=== PATIENT | female | born 2000 | race Caucasian/White ===

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

== ENCOUNTER 2021-03-24 16:52 | Outpatient (CLI) | payer MEDICAID | END 2021-03-24 16:53 | disposition critical access hospital (66) | LOC: EMS 16:52 | DX: R45.851 Suicidal ideations (principal) | CPT/HCPCS: A0425; A0429; A0999 ==

== ENCOUNTER 2021-03-24 17:27 | Emergency (ER) | payer MEDICAID ==
--- NOTE | 2021-03-24 17:33 | ED Physician Documentation ---
PD HPI MHE - Stated complaint Stated Complaint: SI - History obtained from History obtained from: Patient, EMS - History of Present Illness Primary symptom: Suicidal ideation - Additional information Additional information: 20-year-old presents by ambulance with suicidal ideation. States that she is severely suicidal but has no plan. Would like to be hospitalized. Has been self cutting. Comorbidities include diabetes. She is currently homeless. Review of Systems Ten Systems: 10 systems reviewed and negative Constitutional: reports: Reviewed and negative Cardiac: reports: Reviewed and negative PD PAST MEDICAL HISTORY - Past Medical History Cardiovascular: None Respiratory: None Neuro: None Endocrine/Autoimmune: Type 2 diabetes GI: None FLORAL ASSOCIATE: None : None HEENT: None Psych: Depression Musculoskeletal: None Derm: None - Past Surgical History Past Surgical History: No - Present Medications Home Medications: Ambulatory Orders Medication Instructions Recorded Confirmed Atorvastatin [Lipitor] 1 tab QPM 03/25/21 03/25/21 Insulin Glargine [Lantus Solostar] 20 unit QPM 03/25/21 03/25/21 Quetiapine Fumarate [Seroquel Xr] 25 mg QPM 03/25/21 03/25/21 - Allergies Allergies/Adverse Reactions: Allergies Allergy/AdvReac Type Severity Reaction Status Date / Time No Known Drug Allergies Allergy Verified 03/24/21 17:35 - Social History Does the pt smoke?: No Smoking Status: Never smoker Does the pt drink ETOH?: No Does the pt have substance abuse?: No - Immunizations Immunizations are current?: Yes Immunizations: TDAP >10years/unknown - POLST Patient has POLST: No PD ED PE NORMAL - Vitals Vital signs reviewed: Yes - General General: Alert and oriented X 3, No acute distress - HEENT HEENT: PERRL, EOMI - Neck Neck: Supple, no meningeal sign, No bony TTP - Cardiac Cardiac: RRR, No murmur - Respiratory Respiratory: No respiratory distress, Clear bilaterally - Abdomen Abdomen: Soft, Non tender - Back Back: No CVA TTP, No spinal TTP - Derm Derm: Normal color, Warm and dry - Extremities Extremities: No edema, No calf tenderness / cord - Neuro Neuro: Alert and oriented X 3, Normal speech - Psych Psych: Other (Depressed mood but cooperative with good eye contact) Results - Vitals Vitals: Vital Signs - 24 hr 03/25/21 03/25/21 03/25/21 00:14 03:51 05:21 Heart Rate 103 H Respiratory 18 13 15 Rate Blood Pressure 142/80 H O2 Saturation 94 03/25/21 03/25/21 06:18 14:56 Heart Rate 107 H Respiratory 12 17 Rate Blood Pressure 158/87 H O2 Saturation 98 Oxygen O2 Source Room air - Labs Labs: Laboratory Tests 03/24/21 03/24/21 03/24/21 17:44 17:44 17:44 WBC 10.3 RBC 5.14 Hgb 14.1 Hct 42.9 MCV 83.5 MCH 27.4 MCHC 32.9 RDW 12.8 Plt Count 317 MPV 11.1 H Neut # (Auto) 7.4 H Lymph # (Auto) 2.2 [place] # (Auto) 0.6 Eos # (Auto) 0.1 Baso # (Auto) 0.0 Absolute Nucleated RBC 0.00 Nucleated RBC % 0.0 Sodium 133 L Potassium 3.9 Chloride 97 L Carbon Dioxide 26 Anion Gap 10.0 BUN 12 Creatinine 0.5 Estimated GFR (MDRD) 159 Glucose 253 H Calcium 9.4 Total Bilirubin 0.5 AST 86 H ALT 108 H Alkaline Phosphatase 67 Total Protein 8.9 H Albumin 4.3 Globulin 4.6 H Albumin/Globulin Ratio 0.9 L Lipase 28 TSH 1.60 Urine Color Urine Clarity Urine pH Ur Specific Mozelle Urine Protein Urine Glucose (UA) Urine Ketones Urine Occult Blood Urine Nitrite Urine Bilirubin Urine Urobilinogen Ur Leukocyte Esterase Urine RBC Urine WBC Ur Squamous Epith Cells Urine Bacteria Ur Microscopic Review Urine Culture Comments Urine HCG, Qual Nasal Adenovirus (PCR) Nasal B. parapertussis DNA (PCR) Nasal Coronavir 229E PCR Nasal Coronavir HKU1 PCR Nasal Coronavir NL63 PCR Nasal Coronavir OC43 PCR Nasal Enterovir/Rhinovir PCR Nasal Influenza B PCR Nasal Influenza A PCR Nasal Parainfluen 1 PCR Nasal Parainfluen 2 PCR Nasal Parainfluen 3 PCR Nasal Parainfluen 4 PCR Nasal RSV (PCR) Nasal B.pertussis DNA PCR Nasal C.pneumoniae (PCR) Rashawn Human Metapneumo PCR Nasal M.pneumoniae (PCR) Nasal SARS-CoV-2 (PCR) Salicylates < 6.0 Urine Opiates Screen Ur Oxycodone Screen Urine Methadone Screen Ur Propoxyphene Screen Acetaminophen < 10 L Ur Barbiturates Screen Ur Tricyclics Screen Ur Phencyclidine Scrn Ur Amphetamine Screen U Methamphetamines Scrn U Benzodiazepines Scrn Urine Cocaine Screen U Cannabinoids Screen Ethyl Alcohol < 5.0 03/24/21 03/24/21 17:47 22:45 WBC RBC Hgb Hct MCV MCH MCHC RDW Plt Count MPV Neut # (Auto) Lymph # (Auto) [place] # (Auto) Eos # (Auto) Baso # (Auto) Absolute Nucleated RBC Nucleated RBC % Sodium Potassium Chloride Carbon Dioxide Anion Gap BUN Creatinine Estimated GFR (MDRD) Glucose Calcium Total Bilirubin AST ALT Alkaline Phosphatase Total Protein Albumin Globulin Albumin/Globulin Ratio Lipase TSH Urine Color YELLOW Urine Clarity SL. CLOUDY Urine pH 5.5 Ur Specific Mozelle 1.020 Urine Protein NEGATIVE Urine Glucose (UA) >=1000 H Urine Ketones NEGATIVE Urine Occult Blood TRACE-INTA Urine Nitrite NEGATIVE Urine Bilirubin NEGATIVE Urine Urobilinogen 0.2 (NORMAL) Ur Leukocyte Esterase SMALL H Urine RBC 6-10 H Urine WBC 0-3 Ur Squamous Epith Cells MANY Squamous H Urine Bacteria Many H Ur Microscopic Review INDICATED Urine Culture Comments NOT INDICATED Urine HCG, Qual NEGATIVE Nasal Adenovirus (PCR) NOT DETECTED Nasal B. parapertussis DNA (PCR) NOT DETECTED Nasal Coronavir 229E PCR NOT DETECTED Nasal Coronavir HKU1 PCR NOT DETECTED Nasal Coronavir NL63 PCR NOT DETECTED Nasal Coronavir OC43 PCR NOT DETECTED Nasal Enterovir/Rhinovir PCR NOT DETECTED Nasal Influenza B PCR NOT DETECTED Nasal Influenza A PCR NOT DETECTED Nasal Parainfluen 1 PCR NOT DETECTED Nasal Parainfluen 2 PCR NOT DETECTED Nasal Parainfluen 3 PCR NOT DETECTED Nasal Parainfluen 4 PCR NOT DETECTED Nasal RSV (PCR) NOT DETECTED Nasal B.pertussis DNA PCR NOT DETECTED Nasal C.pneumoniae (PCR) NOT DETECTED Rashawn Human Metapneumo PCR NOT DETECTED Nasal M.pneumoniae (PCR) NOT DETECTED Nasal SARS-CoV-2 (PCR) NOT DETECTED Salicylates Urine Opiates Screen NEGATIVE Ur Oxycodone Screen NEGATIVE Urine Methadone Screen NEGATIVE Ur Propoxyphene Screen NEGATIVE Acetaminophen Ur Barbiturates Screen NEGATIVE Ur Tricyclics Screen NEGATIVE Ur Phencyclidine Scrn NEGATIVE Ur Amphetamine Screen NEGATIVE U Methamphetamines Scrn NEGATIVE U Benzodiazepines Scrn NEGATIVE Urine Cocaine Screen NEGATIVE U Cannabinoids Screen NEGATIVE Ethyl Alcohol PD MEDICAL DECISION MAKING - ED course ED course: 20-year-old transgender now male young man presents with suicidal ideation. Psychiatric telehealth done overnight and recommending inpatient admission. Patient states his blood glucose always runs around 300 and stopped Metformin sometime ago but accepting facility requests blood sugar closer to 200 and was given divided doses of subcutaneous insulin to try to attain that goal. He was subsequently accepted to [facility] and cobras were completed. Departure - Departure Disposition: 65 Psych Hosp/Unit DC/Xfer Clinical Impression: Suicidal ideation Uncontrolled type 2 diabetes mellitus Qualifiers: Glycemic state: with hyperglycemia Qualified Code(s): E11.65 - Type 2 diabetes mellitus with hyperglycemia Condition: Stable
[2021-03-24 17:53] LABS: BASOPHILS % (AUTO) 0.3 %; EOSINOPHILS # (AUTO) 0.1 10^3/uL (0.0-0.7); EOSINOPHILS % (AUTO) 0.6 %; HCT - HEMATOCRIT 42.9 % (37.0-47.0); HGB - HEMOGLOBIN 14.1 g/dL (12.0-16.0); LYMPHOCYTES # (AUTO) 2.2 10^3/uL (1.5-3.5); LYMPHOCYTES % (AUTO) 21.3 %; MEAN CORPUSCULAR HEMOGLOBIN 27.4 pg (27.0-31.0); MEAN CORPUSCULAR HGB CONC 32.9 g/dL (32.0-36.0); MEAN CORPUSCULAR VOLUME 83.5 fL (81.0-99.0); MEAN PLATELET VOLUME 11.1 fL (7.9-10.8); MONOCYTES # (AUTO) 0.6 10^3/uL (0.0-1.0); MONOCYTES % (AUTO) 5.9 %; NEUTROPHILS # (AUTO) 7.4 10^3/uL (1.5-6.6); NEUTROPHILS % (AUTO) 71.6 %; PLT - PLATELET COUNT 317 10^3/uL (130-450); RED BLOOD COUNT 5.14 10^6/uL (4.20-5.40); RED CELL DISTRIBUTION WIDTH 12.8 % (12.0-15.0); WHITE BLOOD COUNT 10.3 x10^3/uL (4.8-10.8)
[2021-03-24 18:05] LABS: ACETAMINOPHEN < 10 ug/mL (10-30); ALBUMIN 4.3 g/dL (3.2-5.5); ALBUMIN/GLOBULIN RATIO 0.9 (1.0-2.2); ALKALINE PHOSPHATASE 67 IU/L (42-121); ALT ALANINE AMINOTRANSFERASE 108 IU/L (10-60); AST ASPARTATE AMINOTRANSFERASE 86 IU/L (10-42); BILIRUBIN,TOTAL 0.5 mg/dL (0.2-1.0); BUN - BLOOD UREA NITROGEN 12 mg/dL (6-20); CALCIUM 9.4 mg/dL (8.5-10.3); CARBON DIOXIDE - CO2 26 mmol/L (21-32); CHLORIDE 97 mmol/L (101-111); CREATININE 0.5 mg/dL (0.4-1.0); ETOH - ETHANOL < 5.0 mg/dL; GFR - MDRD 159 (>89); GLUCOSE 253 mg/dL (70-100); LIPASE 28 U/L (22-51); POTASSIUM 3.9 mmol/L (3.5-5.0); SALICYLATE < 6.0 mg/dL; SODIUM 133 mmol/L (135-145); TOTAL PROTEIN 8.9 g/dL (6.7-8.2)
[2021-03-24 18:47] LABS: B. PARAPERTUSSIS- RESP PCR PAN NOT DETECTED; B. PERTUSSIS- RESP PCR PANEL NOT DETECTED; C. PNEUMONIAE- RESP PCR PANEL NOT DETECTED; CORONAVIRUS 229E-RESP PCR NOT DETECTED; CORONAVIRUS HKU1-RESP PCR NOT DETECTED; CORONAVIRUS NL63-RESP PCR NOT DETECTED; CORONAVIRUS OC43-RESP PCR NOT DETECTED; HUMAN METAPNEUMOVIRUS NOT DETECTED; INFLUENZA A- RESP PCR PANEL NOT DETECTED; INFLUENZA B - RESP PCR PANEL NOT DETECTED; M. PNEUMONIAE- RESP PCR PANEL NOT DETECTED; PARAINFLUENZA VIRUS 1 NOT DETECTED; PARAINFLUENZA VIRUS 2 NOT DETECTED; PARAINFLUENZA VIRUS 3 NOT DETECTED; PARAINFLUENZA VIRUS 4 NOT DETECTED; RHINOVIRUS/ENTEROVIRUS NOT DETECTED; RSV- RESP PCR PANEL NOT DETECTED; SARS-CoV-2 -RESP PCR PANEL NOT DETECTED
[2021-03-24 22:50] LABS: MUDS CUTOFF CONCENTRATIONS CUTOFF CONC BELOW:
[2021-03-24 22:55] LABS: BILIRUBIN,URINE NEGATIVE (NEGATIVE); CLARITY,URINE SL. CLOUDY (CLEAR); GLUCOSE, URINE (UA) >=1000 mg/dL (NEGATIVE); KETONES,URINE (UA) NEGATIVE (NEGATIVE); LEUKOCYTE ESTERASE, URINE SMALL (NEGATIVE); NITRITE,URINE NEGATIVE (NEGATIVE); OCCULT BLOOD,URINE TRACE-INTA (NEGATIVE); PH,URINE 5.5 PH (5.0-7.5); PROTEIN,URINE NEGATIVE (NEGATIVE); UROBILINOGEN,URINE 0.2 (NORMAL) E.U./dL (NORMAL)
[2021-03-24 22:56] LABS: HCG UR QUAL NEGATIVE
[2021-03-24 23:06] LABS: AMPHETAMINE SCREEN,URINE NEGATIVE (NEGATIVE); BACTERIA,URINE Many /HPF (None Seen); BARBITURATE SCREEN,UR NEGATIVE (NEGATIVE); BENZODIAZEPINES SCREEN, URINE NEGATIVE (NEGATIVE); COCAINE SCREEN URINE NEGATIVE (NEGATIVE); METHADONE SCREEN, URINE NEGATIVE (NEGATIVE); METHAMPHETAMINES SCREEN, URINE NEGATIVE (NEGATIVE); OPIATE SCREEN, URINE NEGATIVE (NEGATIVE); OXYCODONE SCREEN, URINE NEGATIVE (NEGATIVE); PROPOXYPHENE SCREEN, URINE NEGATIVE (NEGATIVE); SQUAMOUS EPITHELIAL CELL,UR MANY Squamous (<= Few); THC CANNABINOID SCREEN, URINE NEGATIVE (NEGATIVE); TRICYCLIC ANTIDEPRESSANT,URINE NEGATIVE (NEGATIVE); WBC,URINE 0-3 /HPF (0-5)
[2021-03-25] MEDS ORDERED: ACETAMINOPHEN 325 MG TABLET PO STA (00:44)
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
[2021-03-25] MEDS ORDERED: INSULIN NPH HUMAN 100 UNIT/1 ML 10 ML MDV SUBQ STA (13:37)
[2021-03-25] MEDS ORDERED: metFORMIN 500 MG TABLET PO STA (14:29)
[2021-03-25] MEDS ORDERED: INSULIN REGULAR HUMAN 100 UNIT/1 ML 10 ML MDV SUBQ STA ×3 (14:29→17:15)
[2021-03-25 21:32] VITALS: BP 149/92
== END 2021-03-25 21:35 ==
LOC: EDUNIT# → ED 17:27
DX: F33.9 Major depressive disorder, recurrent, unspecified (principal); F60.3 Borderline personality disorder; F64.9 Gender identity disorder, unspecified; E11.65 Type 2 diabetes mellitus with hyperglycemia; Z79.4 Long term (current) use of insulin; Z20.822 Contact with and (suspected) exposure to COVID-19
CPT/HCPCS: 0202U; 36415; 80053; 80306; 80307; 80320; 80329; 81001; 81025; 83690; 84443; 85025; 99283; 99285; A9270; J1815; Q3014; 81003; 87086

== ENCOUNTER 2021-04-10 23:45 | Emergency (ER) | payer MEDICAID ==
[2021-04-10 23:51] VITALS: BP 144/90
[2021-04-11] MEDS ORDERED: ACETAMINOPHEN 325 MG TABLET PO STA
[2021-04-11] MEDS ORDERED: IBUPROFEN 600 MG TABLET PO STA
--- NOTE | 2021-04-11 00:04 | ED Physician Documentation ---
History of Present Illness - Stated complaint Stated Complaint: BACK PX - Chief complaint Chief Complaint: Back Pain - History obtained from History obtained from: Patient - Additonal information Additional information: Patient comes emergency department for chief complaint of chronic back pain and a bruise on her back. Patient states that her roommate at [facility] told her that she had a bruise on her back. The patient states she was concerned because nobody had ever noticed that before. She states the staff at [facility] told her it looked "serious" and to come to the emergency department. Patient denies noticing any injury. She does not recall wearing anything that would have rubbed on the area. She denies any clothing dye bleeding onto her skin. No other complaints at this time. No numbness or tingling in her legs. No bowel or bladder incontinence. No fevers, chills, or other symptoms of illness. Review of Systems Ten Systems: 10 systems reviewed and negative Constitutional: reports: Reviewed and negative Eyes: reports: Reviewed and negative Ears: reports: Reviewed and negative Nose: reports: Reviewed and negative Throat: reports: Reviewed and negative Cardiac: reports: Reviewed and negative Respiratory: reports: Reviewed and negative GI: reports: Reviewed and negative : reports: Reviewed and negative Skin: reports: Other (Contusion) Musculoskeletal: reports: Back pain Neurologic: reports: Reviewed and negative Psychiatric: reports: Reviewed and negative Endocrine: reports: Reviewed and negative Immunocompromised: reports: Reviewed and negative PD PAST MEDICAL HISTORY - Past Medical History Cardiovascular: None Respiratory: None Neuro: None Endocrine/Autoimmune: Type 2 diabetes GI: None RAG SHREDDER: None : None HEENT: None Psych: Depression Musculoskeletal: None Derm: None - Past Surgical History Past Surgical History: No - Present Medications Home Medications: Ambulatory Orders Medication Instructions Recorded Confirmed Insulin Glargine [Lantus Solostar] 20 unit QPM 03/25/21 03/25/21 Acetaminophen [Tylenol] 650 mg PO Q6H PRN #30 tab 04/11/21 Ibuprofen [Motrin] 800 mg PO Q8H PRN #30 tablet 04/11/21 - Allergies Allergies/Adverse Reactions: Allergies Allergy/AdvReac Type Severity Reaction Status Date / Time No Known Drug Allergies Allergy Verified 04/10/21 23:48 - Social History Does the pt smoke?: No Smoking Status: Never smoker Does the pt drink ETOH?: No Does the pt have substance abuse?: No - Immunizations Immunizations are current?: Yes Immunizations: TDAP >10years/unknown - POLST Patient has POLST: No PD ED PE NORMAL - Vitals Vital signs reviewed: Yes - General General: Alert and oriented X 3, No acute distress, Well developed/nourished - HEENT HEENT: Atraumatic, PERRL, EOMI, Moist mucous membranes - Neck Neck: Supple, no meningeal sign - Cardiac Cardiac: RRR, No murmur, Strong equal pulses - Respiratory Respiratory: No respiratory distress, Clear bilaterally - Abdomen Abdomen: Soft, Non tender, Non distended - Back Back: No spinal TTP - Derm Derm: Warm and dry, No rash, Other (Normal colored skin except for older, grayish-yellow, symmetrically shaped contusion noted in the midline of patient's lumbar area. No associated edema or fluctuance. No induration.) - Extremities Extremities: No deformity - Neuro Neuro: Alert and oriented X 3, jewelry store manager 2-12 intact, Normal speech - Psych Psych: Normal mood, Normal affect Results - Vitals Vitals: Vital Signs - 24 hr 04/10/21 23:48 Temperature 36.5 C Heart Rate 94 Respiratory 16 Rate Blood Pressure 144/90 H O2 Saturation 97 Oxygen O2 Source Room air PD MEDICAL DECISION MAKING - ED course Complexity details: considered differential, d/w patient ED course: I discussed with the patient that she appears to have an old contusion, though the cause cannot be determined. She does not have any bruising anywhere else on her skin, nor does she have petechiae or purpura to raise concern for a more serious underlying hematologic issue. The patient does not have any evidence of acute trauma to her spine. She has requested something for pain for her back, and I have offered her ibuprofen and/or Tylenol. We have discussed home management and symptoms, as well as usual indications for return. She is cleared to return to [facility]. Departure - Departure Disposition: 01 Home, Self Care Clinical Impression: Back pain Qualifiers: Back pain location: low back pain Chronicity: chronic Back pain laterality: bilateral Sciatica presence: without sciatica Qualified Code(s): M54.50 - Low back pain, unspecified; G89.29 - Other chronic pain Contusion Qualifiers: Encounter type: initial encounter Contusion area: lower back Qualified Code(s): S30.0XXA - Contusion of lower back and pelvis, initial encounter Condition: Stable Instructions: ED Contusion Soft Tissue, ED Back Care Tips Prescriptions: Ibuprofen [Motrin] 800 mg PO Q8H PRN #30 tablet PRN Reason: PAIN &/OR FEVER Acetaminophen [Tylenol] 650 mg PO Q6H PRN #30 tab PRN Reason: Pain
== END 2021-04-11 00:14 | disposition home or self-care (01) ==
LOC: ED 23:45
DX: M54.50 Low back pain, unspecified (principal); G89.29 Other chronic pain; S30.0XXA Contusion of lower back and pelvis, initial encounter; X58.XXXA Exposure to other specified factors, initial encounter; E11.9 Type 2 diabetes mellitus without complications; Z79.4 Long term (current) use of insulin
CPT/HCPCS: 99282; A9270

== ENCOUNTER 2021-04-18 11:21 | Emergency (ER) | payer MEDICAID ==
[2021-04-18 11:31] VITALS: BP 149/102
--- NOTE | 2021-04-18 12:37 | ED Physician Documentation ---
History of Present Illness - Stated complaint Stated Complaint: RT TOOTH PX - Chief complaint Chief Complaint: Heent - History obtained from History obtained from: Patient - History of Present Illness Timing: Today Pain level max: 7 Pain level now: 7 - Additonal information Additional information: Patient is a 20-year-old female with right upper dental pain. Started last night. Worsened today. Has not contacted her dentist yet. No fevers. No chills. Review of Systems Constitutional: denies: Fever, Chills Respiratory: denies: Cough GI: denies: Vomiting : denies: Now [place] [employer] PAST MEDICAL HISTORY - Past Medical History Past Medical History: Yes Cardiovascular: None Respiratory: None Neuro: None Endocrine/Autoimmune: Type 2 diabetes GI: None FELTER TENNIS BALLS: None : None HEENT: None Psych: Depression Musculoskeletal: None Derm: None - Past Surgical History Past Surgical History: No - Present Medications Home Medications: Ambulatory Orders Medication Instructions Recorded Confirmed Insulin Glargine [Lantus Solostar] 25 unit SUBQ QPM 03/25/21 04/11/21 Acetaminophen [Tylenol] 650 mg PO Q6H PRN #30 tab 04/11/21 Ibuprofen [Motrin] 800 mg PO Q8H PRN #30 tablet 04/11/21 HYDROcod/ACETAM 5/325 [[place] 5/325] 1 - 2 ea PO Q6H PRN #12 tablet 04/18/21 Penicillin V Potassium 500 mg PO Q6HR #40 tablet 04/18/21 - Allergies Allergies/Adverse Reactions: Allergies Allergy/AdvReac Type Severity Reaction Status Date / Time No Known Drug Allergies Allergy Verified 04/18/21 11:31 - Social History Does the pt smoke?: No Smoking Status: Never smoker Does the pt drink ETOH?: No Does the pt have substance abuse?: No - Immunizations Immunizations are current?: Yes Immunizations: TDAP >10years/unknown - POLST Patient has POLST: No PD ED PE NORMAL - Vitals Vital signs reviewed: Yes - General General: Alert and oriented X 3, No acute distress - HEENT HEENT: Moist mucous membranes, Other (Poor dentition throughout, but there is a cracked and open tooth, right upper posterior molar. No gingival swelling. No facial swelling. No drainable abscess. Normal phonation. No trismus) - Neck Neck: Supple, no meningeal sign, No adenopathy - Cardiac Cardiac: RRR - Respiratory Respiratory: No respiratory distress, Clear bilaterally - Derm Derm: Warm and dry - Neuro Neuro: Alert and oriented X 3 Results - Vitals Vitals: Vital Signs - 24 hr 04/18/21 11:29 Temperature 35.9 C L Heart Rate 87 Respiratory 16 Rate Blood Pressure 149/102 H O2 Saturation 100 Oxygen O2 Source Room air PD MEDICAL DECISION MAKING - ED course Complexity details: reviewed old records, considered differential, d/w patient ED course: Cavit Was placed over the tooth. We will place her on antibiotics and pain medication for home. Recommend she follow-up with her dentist for further care. No abscess. Patient counseled regarding signs and symptoms for which I believe and urgent re-evaluation would be necessary. Patient with good understanding of and agreement to plan and is comfortable going home at this time I am prescribing a short course of short-acting opioid pain medication for this patient. I have reviewed the patients BUGGY LOADER and no concerning findings were noted. I have discussed that the opioids are for short term therapy only, and will not be refilled from the ED. This document was made in part using voice recognition software. While efforts are made to proofread this document, sound alike and grammatical errors may occur. Departure - Departure Disposition: 01 Home, Self Care Clinical Impression: Pain, dental Condition: Good Instructions: ED Tooth Pain Follow-Up: your,dentist within 1 week [Other] Prescriptions: Penicillin V Potassium 500 mg PO Q6HR #40 tablet HYDROcod/ACETAM 5/325 [[place] 5/325] 1 - 2 ea PO Q6H PRN #12 tablet PRN Reason: Pain Comments: Your prescriptions were sent to [facility] in [place]. Please follow-up with your doctor for further care. It is important you see your dentist for your tooth. Return if you worsen. I am prescribing a short course of narcotic pain medication for you. These are potentially dangerous and addictive medications that should be used carefully. These medications may constipate you. Take an redr-laf-awcedjz stool softener (docusate) twice daily with plenty of water while taking these medications. If you go 24 hours without a bowel movement, take fdxl-fxc-stipxwa miralax, per package instructions. Do not drink or drive while taking these medications. If you received narcotic or sedating medications while in the emergency department, do not drive for 24 hours. Store this medication in a safe, secure place and out of reach of children. It is a violation of federal law to give or sell this medication to another person or to use in a manner other than prescribed. The ED will not refill narcotic prescriptions, including prescriptions lost or stolen. To dispose of unwanted medications: 1. [facility] at [address] in [place] has a medication drop box. They accept prescription medications (in pill form) Wednesday through Wednesday 9:00 a.m. to 5:00 p.m. 2. The [facility] [employer] accepts prescription medications (in pill form only) for disposal year round. Call for more information. 3. Contact the [facility] for the next [facility] sponsored prescription drug collection event. , [phone], or [phone]; Discharge Date/Time: 04/18/21 12:41
[2021-04-18] MEDS: PENICILLIN VK 250 MG TABLET PO STA (12:40)
[2021-04-18] MEDS: HYDROcod/ACETAM 5/325 MG TABLET PO STA (12:40)
== END 2021-04-18 12:41 | disposition home or self-care (01) ==
LOC: ED 11:21
DX: K08.89 Other specified disorders of teeth and supporting structures (principal); E11.9 Type 2 diabetes mellitus without complications; Z79.4 Long term (current) use of insulin
CPT/HCPCS: 99282; 99284; A9270

== ENCOUNTER 2021-07-04 18:14 | Emergency (ER) | payer MEDICAID ==
[2021-07-04 18:54] LABS: MUDS CUTOFF CONCENTRATIONS CUTOFF CONC BELOW:
[2021-07-04 18:55] LABS: BASOPHILS % (AUTO) 0.3 %; EOSINOPHILS # (AUTO) 0.1 10^3/uL (0.0-0.7); EOSINOPHILS % (AUTO) 1.2 %; HCT - HEMATOCRIT 40.9 % (37.0-47.0); HGB - HEMOGLOBIN 13.3 g/dL (12.0-16.0); LYMPHOCYTES % (AUTO) 25.6 %; MEAN CORPUSCULAR HEMOGLOBIN 26.8 pg (27.0-31.0); MEAN CORPUSCULAR HGB CONC 32.5 g/dL (32.0-36.0); MEAN CORPUSCULAR VOLUME 82.3 fL (81.0-99.0); MEAN PLATELET VOLUME 11.2 fL (7.9-10.8); MONOCYTES # (AUTO) 0.7 10^3/uL (0.0-1.0); MONOCYTES % (AUTO) 5.8 %; NEUTROPHILS # (AUTO) 7.8 10^3/uL (1.5-6.6); NEUTROPHILS % (AUTO) 66.8 %; PLT - PLATELET COUNT 306 10^3/uL (130-450); RED BLOOD COUNT 4.97 10^6/uL (4.20-5.40); RED CELL DISTRIBUTION WIDTH 13.5 % (12.0-15.0); WHITE BLOOD COUNT 11.7 x10^3/uL (4.8-10.8)
--- NOTE | 2021-07-04 18:55 | ED Physician Documentation ---
History of Present Illness - Stated complaint Stated Complaint: SI - Chief complaint Chief Complaint: MHE - Additonal information Additional information: 20-year-old female who is a type II diabetic and has a longstanding history of depression/anxiety who presents to the emergency department with suicidal ideation. She reports this provider that she would intend to cut her wrist in the bathtub or take all of her insulin. She reports that she is now homeless and her girlfriend stopped speaking to her just over a week ago. States that she has been hospitalized many times and desires hospitalization again. Meds: Regular insulin via sliding scale; Lantus 25 units every afternoon Review of Systems Constitutional: reports: Reviewed and negative Ears: reports: Reviewed and negative Nose: reports: Reviewed and negative Throat: reports: Reviewed and negative Cardiac: reports: Reviewed and negative Respiratory: reports: Reviewed and negative GI: reports: Reviewed and negative : reports: Reviewed and negative Skin: reports: Other (Superficial cutting lacey on bilateral forearms) Musculoskeletal: reports: Reviewed and negative PD PAST MEDICAL HISTORY - Past Medical History Cardiovascular: None Respiratory: None Neuro: None Endocrine/Autoimmune: Type 2 diabetes GI: None 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 : None HEENT: None Psych: Depression Musculoskeletal: None Derm: None - Past Surgical History Past Surgical History: No - Present Medications Home Medications: Ambulatory Orders Medication Instructions Recorded Confirmed Insulin Glargine [Lantus Solostar] 25 unit SUBQ BID 03/25/21 04/11/21 - Allergies Allergies/Adverse Reactions: Allergies Allergy/AdvReac Type Severity Reaction Status Date / Time No Known Drug Allergies Allergy Verified 07/04/21 18:33 - Social History Does the pt smoke?: No Smoking Status: Never smoker Does the pt drink ETOH?: No Does the pt have substance abuse?: No - Immunizations Immunizations are current?: Yes Immunizations: TDAP >10years/unknown - POLST Patient has POLST: No PD ED PE EXPANDED - General General: Alert, No acute distress, Other (Obese) - Neck Neck: Supple w/out meningeal sx. No: Adenopathy - Cardiac Cardiac: Regular Rate, Tachy, Radial strong equal, Pedal strong equal, Cap refill < 2 sec. No: Murmur Present - Respiratory Respiratory: Clear to ausultation cal. No: Distress, Labored - Abdomen Abdomen: Normal Bowel sounds. No: Tender to palpation - Back Back: Other (Belden hump) - Derm Derm: Other (Superficial cutting lacey on bilateral upper extremities.) - Neuro Neuro: Alert and Oriented X 3, CNII-XII intact - GCS Eye Opening: Spontaneous Motor: Obeys Commands Verbal: Oriented Total: 15 - Psych Psych: Suicidal, Other (Somewhat flat affect. Good eye contact. Linear speech. Endorses plan to take all her insulin or cut her wrists in a warm bathtub.). No: Homicidal, Auditory hallucinations, Visual hallucinations Results - Vitals Vitals: Vital Signs - 24 hr 07/04/21 18:28 Temperature 37.2 C Heart Rate 114 H Respiratory 18 Rate Blood Pressure 153/99 H O2 Saturation 96 Oxygen O2 Source Room air - Labs Labs: Laboratory Tests 07/04/21 07/04/21 07/04/21 18:38 18:50 18:50 WBC 11.7 H RBC 4.97 Hgb 13.3 Hct 40.9 MCV 82.3 MCH 26.8 L MCHC 32.5 RDW 13.5 Plt Count 306 MPV 11.2 H Neut # (Auto) 7.8 H Lymph # (Auto) 3.0 Providence # (Auto) 0.7 Eos # (Auto) 0.1 Baso # (Auto) 0.0 Absolute Nucleated RBC 0.00 Nucleated RBC % 0.0 Sodium 135 Potassium 3.9 Chloride 100 L Carbon Dioxide 25 Anion Gap 10.0 BUN 12 Creatinine 0.5 Estimated GFR (MDRD) 159 Glucose 344 H Calcium 9.1 Total Bilirubin 0.3 AST 55 H ALT 85 H Alkaline Phosphatase 79 Total Protein 8.2 Albumin 3.7 Globulin 4.5 H Albumin/Globulin Ratio 0.8 L Lipase 39 TSH Urine Color YELLOW Urine Clarity CLEAR Urine pH 7.0 Ur Specific [place] 1.015 Urine Protein NEGATIVE Urine Glucose (UA) >=1000 H Urine Ketones NEGATIVE Urine Occult Blood SMALL H Urine Nitrite NEGATIVE Urine Bilirubin NEGATIVE Urine Urobilinogen 0.2 (NORMAL) Ur Leukocyte Esterase NEGATIVE Urine RBC 0-5 Urine WBC 0-3 Ur Squamous Epith Cells FEW Squamous Urine Bacteria Rare Ur Microscopic Review INDICATED Urine Culture Comments NOT INDICATED Urine HCG, Qual NEGATIVE Nasal Adenovirus (PCR) Nasal B. parapertussis DNA (PCR) Nasal Coronavir 229E PCR Nasal Coronavir HKU1 PCR Nasal Coronavir NL63 PCR Nasal Coronavir OC43 PCR Nasal Enterovir/Rhinovir PCR Nasal Influenza B PCR Nasal Influenza A PCR Nasal Parainfluen 1 PCR Nasal Parainfluen 2 PCR Nasal Parainfluen 3 PCR Nasal Parainfluen 4 PCR Nasal RSV (PCR) Nasal B.pertussis DNA PCR Nasal C.pneumoniae (PCR) Rashawn Human Metapneumo PCR Nasal M.pneumoniae (PCR) Nasal SARS-CoV-2 (PCR) Salicylates < 6.0 Urine Opiates Screen NEGATIVE Ur Oxycodone Screen NEGATIVE Urine Methadone Screen NEGATIVE Ur Propoxyphene Screen NEGATIVE Acetaminophen < 10 L Ur Barbiturates Screen NEGATIVE Ur Tricyclics Screen NEGATIVE Ur Phencyclidine Scrn NEGATIVE Ur Amphetamine Screen NEGATIVE U Methamphetamines Scrn NEGATIVE U Benzodiazepines Scrn NEGATIVE Urine Cocaine Screen NEGATIVE U Cannabinoids Screen NEGATIVE Ethyl Alcohol < 5.0 07/04/21 07/04/21 18:50 19:25 WBC RBC Hgb Hct MCV MCH MCHC RDW Plt Count MPV Neut # (Auto) Lymph # (Auto) [place] # (Auto) Eos # (Auto) Baso # (Auto) Absolute Nucleated RBC Nucleated RBC % Sodium Potassium Chloride Carbon Dioxide Anion Gap BUN Creatinine Estimated GFR (MDRD) Glucose Calcium Total Bilirubin AST ALT Alkaline Phosphatase Total Protein Albumin Globulin Albumin/Globulin Ratio Lipase TSH 1.26 Urine Color Urine Clarity Urine pH Ur Specific [place] Urine Protein Urine Glucose (UA) Urine Ketones Urine Occult Blood Urine Nitrite Urine Bilirubin Urine Urobilinogen Ur Leukocyte Esterase Urine RBC Urine WBC Ur Squamous Epith Cells Urine Bacteria Ur Microscopic Review Urine Culture Comments Urine HCG, Qual Nasal Adenovirus (PCR) NOT DETECTED Nasal B. parapertussis DNA (PCR) NOT DETECTED Nasal Coronavir 229E PCR NOT DETECTED Nasal Coronavir HKU1 PCR NOT DETECTED Nasal Coronavir NL63 PCR NOT DETECTED Nasal Coronavir OC43 PCR NOT DETECTED Nasal Enterovir/Rhinovir PCR NOT DETECTED Nasal Influenza B PCR NOT DETECTED Nasal Influenza A PCR NOT DETECTED Nasal Parainfluen 1 PCR NOT DETECTED Nasal Parainfluen 2 PCR NOT DETECTED Nasal Parainfluen 3 PCR NOT DETECTED Nasal Parainfluen 4 PCR NOT DETECTED Nasal RSV (PCR) NOT DETECTED Nasal B.pertussis DNA PCR NOT DETECTED Nasal C.pneumoniae (PCR) NOT DETECTED Rashawn Human Metapneumo PCR NOT DETECTED Nasal M.pneumoniae (PCR) NOT DETECTED Nasal SARS-CoV-2 (PCR) NOT DETECTED Salicylates Urine Opiates Screen Ur Oxycodone Screen Urine Methadone Screen Ur Propoxyphene Screen Acetaminophen Ur Barbiturates Screen Ur Tricyclics Screen Ur Phencyclidine Scrn Ur Amphetamine Screen U Methamphetamines Scrn U Benzodiazepines Scrn Urine Cocaine Screen U Cannabinoids Screen Ethyl Alcohol PD MEDICAL DECISION MAKING - ED course Complexity details: reviewed results, re-evaluated patient, considered di fferential, d/w patient ED course: 20-year-old female who has a history of anxiety and depression presents to the emergency department requesting voluntary psychiatric hospitalization for suicidal ideation. She reports that she would either overdose on her insulin or cut her wrists. She recently became homeless and in addition to that her girlfriend has not communicated with her for over a week which she tells me are the inciting events to this suicidal ideation. She is a type II diabetic typically on regular insulin sliding scale as well as Lantus 25 units at night. Screening labs are obtained. Unremarkable with the exception of hyperglycemia. Patient was drinking a Sprite prior to arrival here in the emergency department. I did order the 25 units of Lantus to be administered tonight as well as 5 units of insulin for hyperglycemia. Telepsych consult is pending. This patient is voluntary however. She will be signed out to my nighttime colleague Dr. Scherer to follow-up on telepsych results. Departure - Departure Clinical Impression: Suicidal intent, Homeless single person DMII (diabetes mellitus, type 2) Qualifiers: Diabetes mellitus snf insulin use: with intermediate designer use Diabetes mellitus complication status: without complication Qualified Code(s): E11.9 - Type 2 diabetes mellitus without complications; Z79.4 - intermodal customer service (current) use of insulin Condition: Stable Record reviewed to determine appropriate education?: Yes
[2021-07-04 18:56] LABS: BILIRUBIN,URINE NEGATIVE (NEGATIVE); GLUCOSE, URINE (UA) >=1000 mg/dL (NEGATIVE); KETONES,URINE (UA) NEGATIVE (NEGATIVE); LEUKOCYTE ESTERASE, URINE NEGATIVE (NEGATIVE); NITRITE,URINE NEGATIVE (NEGATIVE); OCCULT BLOOD,URINE SMALL (NEGATIVE); PROTEIN,URINE NEGATIVE (NEGATIVE); UROBILINOGEN,URINE 0.2 (NORMAL) E.U./dL (NORMAL)
[2021-07-04 18:58] LABS: CLARITY,URINE CLEAR (CLEAR); HCG UR QUAL NEGATIVE
[2021-07-04 19:05] LABS: RBC,URINE 0-5 /HPF (0-5); SQUAMOUS EPITHELIAL CELL,UR FEW Squamous (<= Few); WBC,URINE 0-3 /HPF (0-5)
[2021-07-04 19:06] LABS: AMPHETAMINE SCREEN,URINE NEGATIVE (NEGATIVE); BACTERIA,URINE Rare /HPF (None Seen); BARBITURATE SCREEN,UR NEGATIVE (NEGATIVE); BENZODIAZEPINES SCREEN, URINE NEGATIVE (NEGATIVE); COCAINE SCREEN URINE NEGATIVE (NEGATIVE); METHADONE SCREEN, URINE NEGATIVE (NEGATIVE); METHAMPHETAMINES SCREEN, URINE NEGATIVE (NEGATIVE); OPIATE SCREEN, URINE NEGATIVE (NEGATIVE); OXYCODONE SCREEN, URINE NEGATIVE (NEGATIVE); PROPOXYPHENE SCREEN, URINE NEGATIVE (NEGATIVE); THC CANNABINOID SCREEN, URINE NEGATIVE (NEGATIVE); TRICYCLIC ANTIDEPRESSANT,URINE NEGATIVE (NEGATIVE)
[2021-07-04 19:11] LABS: ACETAMINOPHEN < 10 ug/mL (10-30); ALBUMIN 3.7 g/dL (3.2-5.5); ALBUMIN/GLOBULIN RATIO 0.8 (1.0-2.2); ALKALINE PHOSPHATASE 79 IU/L (42-121); ALT ALANINE AMINOTRANSFERASE 85 IU/L (10-60); AST ASPARTATE AMINOTRANSFERASE 55 IU/L (10-42); BILIRUBIN,TOTAL 0.3 mg/dL (0.2-1.0); BUN - BLOOD UREA NITROGEN 12 mg/dL (6-20); CALCIUM 9.1 mg/dL (8.5-10.3); CARBON DIOXIDE - CO2 25 mmol/L (21-32); CHLORIDE 100 mmol/L (101-111); CREATININE 0.5 mg/dL (0.4-1.0); ETOH - ETHANOL < 5.0 mg/dL; GFR - MDRD 159 (>89); GLUCOSE 344 mg/dL (70-100); LIPASE 39 U/L (22-51); POTASSIUM 3.9 mmol/L (3.5-5.0); SALICYLATE < 6.0 mg/dL; SODIUM 135 mmol/L (135-145); TOTAL PROTEIN 8.2 g/dL (6.7-8.2)
[2021-07-04 20:35] LABS: B. PARAPERTUSSIS- RESP PCR PAN NOT DETECTED; B. PERTUSSIS- RESP PCR PANEL NOT DETECTED; C. PNEUMONIAE- RESP PCR PANEL NOT DETECTED; CORONAVIRUS 229E-RESP PCR NOT DETECTED; CORONAVIRUS HKU1-RESP PCR NOT DETECTED; CORONAVIRUS NL63-RESP PCR NOT DETECTED; CORONAVIRUS OC43-RESP PCR NOT DETECTED; HUMAN METAPNEUMOVIRUS NOT DETECTED; INFLUENZA A- RESP PCR PANEL NOT DETECTED; INFLUENZA B - RESP PCR PANEL NOT DETECTED; M. PNEUMONIAE- RESP PCR PANEL NOT DETECTED; PARAINFLUENZA VIRUS 1 NOT DETECTED; PARAINFLUENZA VIRUS 2 NOT DETECTED; PARAINFLUENZA VIRUS 3 NOT DETECTED; PARAINFLUENZA VIRUS 4 NOT DETECTED; RHINOVIRUS/ENTEROVIRUS NOT DETECTED; RSV- RESP PCR PANEL NOT DETECTED; SARS-CoV-2 -RESP PCR PANEL NOT DETECTED
[2021-07-04] MEDS ORDERED: INSULIN GLARGINE 300 UNIT/3 ML PEN SUBQ SCH (21:00)
[2021-07-04] MEDS ORDERED: INSULIN REGULAR HUMAN 100 UNIT/1 ML 10 ML MDV SUBQ STA (21:02)
[2021-07-04] MEDS ORDERED: ACETAMINOPHEN 325 MG TABLET PO STA (21:33)
--- NOTE | 2021-07-04 23:10 | TELEPSYCH PHYS NOTE ---
Telepsych Consultation Note Consult: [employer].Vocab Name: Katie Zamora :2000 Date: 07/04/2021 Time:10:15pm Location of patient: [facility] Location of doctor:[facility] Length of consult:40 minutes This evaluation was conducted via telepsychiatry with the assistance of onsite staff Reason for consult: SI Requested by: ER staff History of Present Illness: The patient is a 20-year-old female history of depression who presents to the ER with depressed mood and suicidal thoughts will plan to either overdose and insulin are cut risk patient is homeless as the mother kicked her out of the home few months ago. The patient reports feelings of hopelessness and worthlessness. She is agreeable to inpatient psychiatric care. Collateral contacted none available Sleep issues: Y - Quantity: poor Quality: poor Psychiatric History/Treatment History: Past diagnoses: depression Hospitalizations: multiple inpt admissions, last in Feb 2021 at [facility] Current Treatment: none Suicide Assessment: PSS-3: 1) Over the past 2 weeks have you felt down, depressed or hopeless? (Y) 2) Over the past 2 weeks have you had thoughts of killing yourself? (Y) 3) Have you ever in your life attempted to kill yourself? (Y) If yes, then when? Within the past 24h? (N), past month? (N), between 1-6 months (N), > 6 months (Y) PSS-3 Secondary Screen If #2 is yes or #3 is yes within the past 6 months, then complete secondary screen: 1) Positive on PSS-3 questions 2 & 3 active SI with a past attempt? (Yes) 2) Have you been thinking about how you might kill yourself? (Yes) 3) Have you had some intention of acting on your thoughts? (Yes) 4) Lifetime psychiatric hospitalization? (Yes) 5) Has drinking or substance abuse ever been a problem for you? (No) 6) Current irritability, agitation, or aggression? (No) PSS-3 Secondary Screen Scoring: (Moderate) Mild (0-2) No current attempt and no plan/intent Moderate (3-4) No current attempt, Plan OR intent but not both Severe (5-6) Current Attempt with Plan AND intent [employer] (T[employer])-based Safety Assessment: Risk Factors Stressors: see HPI Attempts/Self-injury: multiple attempts via pill overdose and insulin, feb 2020 Impulsivity: N Drug/Alcohol History: none Trauma history: none Access to firearms: N HI/Violence/Property destruction: none Legal: none Family Psych History: none Family History of suicide: none Protective Factors Internal: unknown External: none Social supports/ Therapeutic relationships: none Relationship history: single Living situation: homeless Employment: none Education: 10th grade education, no GED Responsibility to family/children/work: N Future orientation: N Medical History: Diabetes Medications & Freq: none Allergies: NKDA Mental Status Exam: Appearance and attire: Dressed in hospital gowns Attitude and behavior: Cooperative Psychomotor agitation/abnormal movements: slight psychomotor agitation Speech: Within normal limits Affect and mood: sad affect, sad mood Association and thought processes: Linear Thought content: + SI, No HI, no Delusions Perception: no AVH Sensorium, memory, and orientation: AAOx3 Intellectual functioning: Average Insight and judgment: Poor Impression/Risk Assessment: Current Suicide Risk (Elevated? Y/N): Yes Current Violence Risk (Elevated? Y/N): No Ability to care for self: No Summary: Patient is a 20-year-old female with depressed mood and SI w/plan. She is not safe for discharge. Admit as voluntary. Diagnosis: MDD, Recurrent Severe without Psychotic Features CPT code: 27151 Treatment Plan Level of Care: Inpatient care. Admit as voluntary Psychiatric Clearance: N/A Observation level 1:1 needed?: Yes Pharmacological: Start Effexor XR 37.5 mg daily Patient psychotic? No Therapy: Supportive Follow up needed while in hospital?: N/A Discussed plan with onsite steam cleaner, who? (Y/N): Discussed with ER doctor Other: Balaji Padilla M.D. [facility] List names and roles of persons who participated in consult: Balaji Padilla MD. Katie Zamora
--- NOTE | 2021-07-05 02:06 | ED Physician Documentation ---
ED Addendum - Addendum Addendum: 07/05/21 02:05The patient remained stable in the ER. The patient had a telepsychiatry consultation. Psychiatrist, Dr. Padilla, recommends inpatient treatment and patient is hoping for that as well and is voluntary and cooperative. The patient is medically cleared otherwise. Nursing staff started calling psychiatric facilities to initiate potential transfer. At this point [facility] is reviewing the patient's chart and will call us back. They do have a bed available. Awaiting their response.
[2021-07-05] MEDS ORDERED: INSULIN REGULAR HUMAN 100 UNIT/1 ML 10 ML MDV SUBQ STA ×2 (07:46→14:00)
[2021-07-05] MEDS ORDERED: INSULIN GLARGINE 300 UNIT/3 ML PEN SUBQ SCH (09:00)
[2021-07-05] MEDS ORDERED: INSULIN REGULAR HUMAN 100 UNIT/1 ML 10 ML MDV SUBQ SCH (11:00)
[2021-07-05 13:23] VITALS: BP 136/79
[2021-07-05] MEDS ORDERED: ACETAMINOPHEN 325 MG TABLET PO STA (13:43)
[2021-07-05] MEDS ORDERED: NICOTINE 7 MG PATCH TOP SCH (14:00)
--- NOTE | 2021-07-05 14:10 | ED Physician Documentation ---
ED Addendum - Addendum Addendum: 07/05/21 14:09 Patient remained in the emergency department overnight pending placement to a voluntary inpatient psychiatric facility. She had been evaluated by telepsych who also made the recommendation for voluntary inpatient treatment. While here she was hemodynamically and clinically stable calm and cooperative with care. She did require multiple doses of insulin to help achieve adequate blood sugar control. Seen by social work and has been accepted to [facility]. Appropriate COBRA paperwork completed.
[2021-07-05] MEDS ORDERED: ONDANSETRON ODT 4 MG TABLET TL STA (15:29)
[2021-07-06] MEDS ORDERED: NICOTINE 7 MG PATCH TOP SCH (09:00)
== END 2021-07-05 15:43 ==
LOC: ED 18:14
DX: F33.2 Major depressive disorder, recurrent severe without psychotic features (principal); R45.851 Suicidal ideations; F41.9 Anxiety disorder, unspecified; E11.65 Type 2 diabetes mellitus with hyperglycemia; Z79.4 Long term (current) use of insulin; Z20.822 Contact with and (suspected) exposure to COVID-19; Z59.00 Homelessness unspecified
CPT/HCPCS: 0202U; 36415; 80053; 80306; 80307; 80320; 80329; 81001; 81025; 83690; 84443; 85025; 99283; 99285; A9270; G0425; J1815; Q0162; Q3014; 81003; 87086

== ENCOUNTER 2022-02-21 17:46 | Emergency (ER) | payer MEDICAID ==
[2022-02-21] MEDS ORDERED: KETOROLAC 15 MG/ML VIAL IVP STA (18:00)
[2022-02-21] MEDS ORDERED: SODIUM CHLORIDE 0.9% 1,000 ML IV STA (18:00)
[2022-02-21] MEDS ORDERED: INSULIN REGULAR HUMAN 100 UNIT/1 ML 10 ML MDV IVP STA (18:00)
[2022-02-21] MEDS ORDERED: METOCLOPRAMIDE 10 MG/2 ML VIAL IVP STA (18:00)
--- NOTE | 2022-02-21 18:01 | ED Physician Documentation ---
PD HPI HEADACHE - Stated complaint Stated Complaint: MIGRAINE/VOMITING - Chief complaint Chief Complaint: Neuro - History obtained from History obtained from: Patient - Additional information Additional information: 21-year-old woman with type 2 diabetes on insulin but noncompliant and a history of migraines presents for the evaluation of migraine. Had a gradual onset headache this morning, frontal and global feeling like her head is being squeezed in a vice. It is worse with loud sounds and light. It is similar to prior headaches. She has not taken anything for it. No associated fevers or neck stiffness. 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 : None HEENT: None Psych: Depression Musculoskeletal: None Derm: None - Past Surgical History Past Surgical History: No - Present Medications Home Medications: Ambulatory Orders Medication Instructions Recorded Confirmed Blood-Glucose Meter [Glucometer] 1 each ACHS #1 each 11/09/21 Insulin Aspart [NovoLOG] 5 unit SUBQ TIDWM 90 Days #90 11/09/21 Insulin Glargine [Lantus Solostar] 20 unit SQ QPM 90 Days #90 11/09/21 Lancets/Blood Glucose Strips [Pogo 1 each ACHS 90 Days #360 11/09/21 Automatic Test Cartridge] [place], Disposable [Needle] 1 each 5XD 90 Days #450 11/09/21 Syring-Needl,Disp,Insul,0.3 ml 1 each 5XD 90 Days #1 11/09/21 [Insulin Syringe] traZODone [Desyrel] 0.5 tab PO HS #45 tablet 11/09/21 HYDROcod/ACETAM 5/325 [[place] Lee 5/325] 1 - 2 ea PO Q6H PRN #10 tablet 01/18/22 SUMAtriptan [Imitrex] 25 mg PO BID PRN #10 tablet 02/21/22 - Allergies Allergies/Adverse Reactions: Allergies Allergy/AdvReac Type Severity Reaction Status Date / Time No Known Drug Allergies Allergy Verified 01/18/22 17:28 - Social History Does the pt smoke?: No Smoking Status: Never smoker Does the pt drink ETOH?: No Does the pt have substance abuse?: No - Immunizations Immunizations are current?: Yes Immunizations: TDAP >10years/unknown - POLST Patient has POLST: No PD ED PE NORMAL - Vitals Vital signs reviewed: Yes - General General: Alert and oriented X 3, No acute distress - HEENT HEENT: PERRL, EOMI - Neck Neck: Supple, no meningeal sign, No bony TTP - Neuro Neuro: Alert and oriented X 3, No motor deficit, No sensory deficit, Normal speech Eye Opening: Spontaneous Motor: Obeys Commands Verbal: Oriented GCS Score: 15 Results - Vitals Vitals: Vital Signs - 24 hr 02/21/22 17:49 Temperature 36.5 C Heart Rate 87 Respiratory 16 Rate Blood Pressure 143/86 H O2 Saturation 97 Oxygen O2 Source Room air - Labs Labs: Laboratory Tests 02/21/22 17:55 POC Whole Bld Glucose 243 H PD MEDICAL DECISION MAKING - ED course ED course: 21-year-old woman presents with migraine headache. Nothing in the history or physical to suggest more serious cause such as subarachnoid hemorrhage or infection. She is an uncontrolled diabetic, fingerstick glucose here was in the 240s, she is administered IV fluids, Reglan, Toradol, and a small dose of insulin. After the administration of Toradol Reglan her headache was much better having gone from a 7 to a 3 and she requested discharge. Departure - Departure Disposition: 01 Home, Self Care Clinical Impression: Migraine Condition: Good Record reviewed to determine appropriate education?: Yes Instructions: ED Headache Migraine, Imitrex Prescriptions: SUMAtriptan [Imitrex] 25 mg PO BID PRN #10 tablet PRN Reason: Headache Comments: Call your doctor to arrange a follow-up appointment, make the next available appointment. In the interim, return anytime if worse or if new symptoms deve lop.
[2022-02-21 19:20] VITALS: BP 139/85
== END 2022-02-21 19:21 | disposition home or self-care (01) ==
LOC: ED 17:46
DX: G43.909 Migraine, unspecified, not intractable, without status migrainosus (principal)
CPT/HCPCS: 96361; 96374; 96375; 99283; 99284; J1815; J2765

== ENCOUNTER 2022-03-19 18:56 | Emergency (ER) | payer MEDICAID ==
[2022-03-19 19:28] LABS: BASOPHILS % (AUTO) 0.3 %; EOSINOPHILS # (AUTO) 0.1 10^3/uL (0.0-0.7); EOSINOPHILS % (AUTO) 0.6 %; HCT - HEMATOCRIT 40.7 % (37.0-47.0); LYMPHOCYTES # (AUTO) 3.1 10^3/uL (1.5-3.5); MEAN CORPUSCULAR HEMOGLOBIN 26.2 pg (27.0-31.0); MEAN CORPUSCULAR HGB CONC 31.9 g/dL (32.0-36.0); MEAN CORPUSCULAR VOLUME 82.1 fL (81.0-99.0); MEAN PLATELET VOLUME 10.7 fL (7.9-10.8); MONOCYTES # (AUTO) 0.9 10^3/uL (0.0-1.0); MONOCYTES % (AUTO) 6.8 %; NEUTROPHILS # (AUTO) 8.7 10^3/uL (1.5-6.6); NEUTROPHILS % (AUTO) 67.9 %; PLT - PLATELET COUNT 352 10^3/uL (130-450); RED BLOOD COUNT 4.96 10^6/uL (4.20-5.40); RED CELL DISTRIBUTION WIDTH 13.8 % (12.0-15.0); WHITE BLOOD COUNT 12.8 x10^3/uL (4.8-10.8)
[2022-03-19 19:40] LABS: ALBUMIN 3.9 g/dL (3.2-5.5); ALBUMIN/GLOBULIN RATIO 0.9 (1.0-2.2); BILIRUBIN,TOTAL 0.4 mg/dL (0.2-1.0); CALCIUM 9.3 mg/dL (8.5-10.3); CREATININE 0.6 mg/dL (0.4-1.0); POTASSIUM 3.7 mmol/L (3.5-5.0); TOTAL PROTEIN 8.3 g/dL (6.7-8.2)
[2022-03-19 19:46] LABS: BILIRUBIN,URINE NEGATIVE (NEGATIVE); GLUCOSE, URINE (UA) >=1000 mg/dL (NEGATIVE); KETONES,URINE (UA) NEGATIVE (NEGATIVE); LEUKOCYTE ESTERASE, URINE NEGATIVE (NEGATIVE); NITRITE,URINE NEGATIVE (NEGATIVE); OCCULT BLOOD,URINE LARGE (NEGATIVE); PROTEIN,URINE NEGATIVE (NEGATIVE); UROBILINOGEN,URINE 1 (NORMAL) E.U./dL (NORMAL)
[2022-03-19 19:49] LABS: CLARITY,URINE HAZY (CLEAR); HCG UR QUAL NEGATIVE
[2022-03-19 20:00] LABS: AMORPHOUS SEDIMENT,UR Few /LPF; BACTERIA,URINE Few /HPF (None Seen); SQUAMOUS EPITHELIAL CELL,UR FEW Squamous (<= Few)
--- NOTE | 2022-03-19 20:38 | ED Physician Documentation ---
PD HPI FEMALE - Stated complaint Stated Complaint: FEMALE - Chief complaint Chief Complaint: Abd Pain - History obtained from History obtained from: Patient - History of Present Illness Timing - onset: How many weeks ago (3-4) Timing - duration: Weeks (3-4) Timing - details: Gradual onset, Still present, Waxing and waning Associated symptoms: Pelvic pain (cramping, more left than right), Vaginal bleeding (mentrual type bleeding but has persisted for 3-4 weeks.). No: Vaginal discharge, Dysuria, Urinary frequency Contributing factors: No: , Exposed to STD Recently seen: Clinic ([facility]2 [facility]. Had irregular period prior to that but not prolonged like this.) Review of Systems Constitutional: denies: Fever, Chills : reports: Irregular menses. 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 : None HEENT: None Psych: Depression Musculoskeletal: None Derm: None - Past Surgical History Past Surgical History: No - Present Medications Home Medications: Ambulatory Orders Medication Instructions Recorded Confirmed Blood-Glucose Meter [Glucometer] 1 each ACHS #1 each 11/09/21 Insulin Aspart [NovoLOG] 5 unit SUBQ TIDWM 90 Days #90 11/09/21 Insulin Glargine [Lantus Solostar] 20 unit SQ QPM 90 Days #90 11/09/21 Lancets/Blood Glucose Strips [Pogo 1 each ACHS 90 Days #360 11/09/21 Automatic Test Cartridge] [place], Disposable [Needle] 1 each 5XD 90 Days #450 11/09/21 Syring-Needl,Disp,Insul,0.3 ml 1 each 5XD 90 Days #1 11/09/21 [Insulin Syringe] traZODone [Desyrel] 0.5 tab PO HS #45 tablet 11/09/21 HYDROcod/ACETAM 5/325 [[place] 5/325] 1 - 2 ea PO Q6H PRN #10 tablet 01/18/22 SUMAtriptan [Imitrex] 25 mg PO BID PRN #10 tablet 02/21/22 HYDROcod/ACETAM 5/325 [[place] 5/325] 1 ea PO Q6H PRN #10 tablet 03/19/22 Meloxicam [Mobic] 7.5 mg PO BID 10 Days #20 tablet 03/19/22 Ondansetron Odt [Zofran] 4 mg TL Q6H PRN #10 tablet 03/19/22 - Allergies Allergies/Adverse Reactions: Allergies Allergy/AdvReac Type Severity Reaction Status Date / Time No Known Drug Allergies Allergy Verified 01/18/22 17:28 - Social History Does the pt smoke?: No Smoking Status: Never smoker Does the pt drink ETOH?: No Does the pt have substance abuse?: No - Immunizations Immunizations are current?: Yes Immunizations: TDAP >10years/unknown - POLST Patient has POLST: No PD ED PE NORMAL - Vitals Vital signs reviewed: Yes - General General: Alert and oriented X 3, No acute distress, Well developed/nourished - Abdomen Abdomen: Normal bowel sounds, Soft, Non distended, Other (high BMI. There is tenderness in suprapubic area and some bilateral lower abd, more to the left. No guarding nor percussion tenderness. ) - Female Female : Deferred - Rectal Rectal: Deferred - Back Back: No CVA TTP - Derm Derm: Normal color, Warm and dry Results - Vitals Vitals: Vital Signs - 24 hr 03/19/22 03/19/22 19:08 21:19 Temperature 37.2 C Heart Rate 91 89 Respiratory 18 16 Rate Blood Pressure 136/86 H 137/78 H O2 Saturation 99 100 Oxygen O2 Source Room air - Labs Labs: Laboratory Tests 03/19/22 03/19/22 03/19/22 19:21 19:21 19:26 WBC 12.8 H RBC 4.96 Hgb 13.0 Hct 40.7 MCV 82.1 MCH 26.2 L MCHC 31.9 L RDW 13.8 Plt Count 352 MPV 10.7 Neut # (Auto) 8.7 H Lymph # (Auto) 3.1 [place] # (Auto) 0.9 Eos # (Auto) 0.1 Baso # (Auto) 0.0 Absolute Nucleated RBC 0.00 Nucleated RBC % 0.0 Sodium 137 Potassium 3.7 Chloride 102 Carbon Dioxide 28 Anion Gap 7.0 BUN 10 Creatinine 0.6 Estimated GFR (MDRD) 127 Glucose 269 H Calcium 9.3 Total Bilirubin 0.4 AST 27 ALT 41 Alkaline Phosphatase 58 Total Protein 8.3 H Albumin 3.9 Globulin 4.4 H Albumin/Globulin Ratio 0.9 L Lipase 38 Urine Color YELLOW Urine Clarity HAZY Urine pH 7.0 Ur Specific [place] 1.015 Urine Protein NEGATIVE Urine Glucose (UA) >=1000 H Urine Ketones NEGATIVE Urine Occult Blood LARGE H Urine Nitrite NEGATIVE Urine Bilirubin NEGATIVE Urine Urobilinogen 1 (NORMAL) Ur Leukocyte Esterase NEGATIVE Urine RBC 6-10 H Urine WBC 4-5 Ur Squamous Epith Cells FEW Squamous Amorphous Sediment Few Urine Bacteria Few Ur Microscopic Review INDICATED Urine Culture Comments NOT INDICATED Urine HCG, Qual NEGATIVE - Rads (name of study) pelvic U/S Radiology: Prelim report reviewed (no cysts, no free fluid, normal flow in ovaries, no fibroids. Normal exam. 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 This should improve after 2 to 3 months. Can treat with anti-inflammatories and Tylenol at this point. Short-term pain medicine if needed for more severe cramps. Follow- up with the [facility].), considered differential (likely some dysmenorrhea related to recent Norplant implant. Can treat with NSAIDs and Tylenol. Pain med short term if needed. Can get U/S to ensure no other structural issues. ), d/w patient ED course: I am prescribing a short course of short acting opioid pain medicine for this patient. I reviewed the patient's BI CONSULTANT and no concerning findings were noted. I have discussed that the opioids are for short-term therapy only, and will not be refilled from the ED. Departure - Departure Disposition: 01 Home, Self Care Clinical Impression: Pelvic cramping, Dysmenorrhea Condition: Stable Record reviewed to determine appropriate education?: Yes Instructions: ED Cramping Menstrual Follow-[facility]: [facility] [Provider Group] Prescriptions: Meloxicam [Mobic] 7.5 mg PO BID 10 Days #20 tablet HYDROcod/ACETAM 5/325 [[place] 5/325] 1 ea PO Q6H PRN #10 tablet PRN Reason: Pain Ondansetron Odt [Zofran] 4 mg TL Q6H PRN #10 tablet PRN Reason: Nausea / Vomiting Comments: Your ultrasound is appear normal without any signs of cysts or structural abnormality. Your blood flow is good to both ovaries. I presume the cramping is related to the persistent bleeding and inflammation of the endometrium. This is not an unusual effect in the first few months after the hormone implant that you received. This typically will resolve with less cramping and bleeding episodes. We would typically use an anti-inflammatory to help with the symptoms and inflammation of the endometrium. I prescribed a longer lasting anti- inflammatory called meloxicam so it only needs to be twice a day. Add ondansetron every 6 hours if needed for nausea as well. You can continue with Tylenol as well 4 times daily for pains in addition. I transmitted prescriptions to [facility]. Discharge Date/Time: 03/19/22 21:59
[2022-03-19] MEDS ORDERED: HYDROcod/ACETAM 5/325 MG TABLET PO STA (21:05)
[2022-03-19] MEDS ORDERED: NAPROXEN 250 MG TABLET PO STA (21:05)
[2022-03-19 21:20] VITALS: BP 137/78
--- NOTE | 2022-03-19 22:16 | Ultrasound Report ---
PROCEDURE: Pelvic w/Transvag+Doppler Comp INDICATIONS: pelvic pain/cramps, left more TECHNIQUE: Real-time scanning was performed of the pelvic organs, with image documentation. Additional endovagi nal scanning was necessary due to incomplete visualization of the adnexal and endometrial structures by transabdominal scanning. Doppler interrogation was performed of the ovaries bilaterally. COMPARISON: CT of abdomen and pelvis dated 01/18/2022. FINDINGS: No pathologic free abdominal or pelvic fluid. Uterus: Uterus is normal in size at 6.3 x 2.9 x 3.9 cm. Mild heterogeneous myometrial echotexture i s seen, no discrete hepatic lesion. The endometrium measures 6 mm in combined thickness. Heterogeneo us echotexture in the endometrium is noted without discrete endometrial mass or fluid. Ovaries: Right ovary measures 2.9 x 2.6 x 4 cm in size with a volume of 15.6 cc. Left ovary measures 2.5 x 2.3 x 3.2 cm in size with a volume of 9.7 cc. Normal appearing arterial and venous waveforms a re confirmed to each ovary.] IMPRESSION: 1. No evidence of ovarian torsion. No solid-appearing ovarian lesion. 2. No pelvic free fluid. 3. No discrete uterine fibroid. No gross endometrial mass or fluid. Reviewed by: Marty Malik MD on 03/19/2022 10:15 PM PDT Approved by: Marty Malik MD on 03/19/2022 10:15 PM PDT Station ID: [id number]
== END 2022-03-19 21:59 | disposition home or self-care (01) ==
LOC: ED 18:56
DX: N94.6 Dysmenorrhea, unspecified (principal); E11.9 Type 2 diabetes mellitus without complications; Z79.4 Long term (current) use of insulin; Z96.41 Presence of insulin pump (external) (internal)
CPT/HCPCS: 36415; 76830; 76856; 80053; 81001; 81025; 83690; 85025; 93975; 99282; 99284; A9270; 81003; 87086

== ENCOUNTER 2022-03-27 17:06 | Emergency (ER) | payer MEDICAID ==
[2022-03-27] MEDS ORDERED: KETOROLAC 60 MG/2 ML VIAL IM STA (17:59)
[2022-03-27] MEDS ORDERED: SUMAtriptan 6 MG/0.5 ML VIAL SUBQ STA (17:59)
--- NOTE | 2022-03-27 18:02 | ED Physician Documentation ---
History of Present Illness - Stated complaint Stated Complaint: MIGRAINE/FEMALE - Chief complaint Chief Complaint: General - History obtained from History obtained from: Patient - History of Present Illness Timing: Last night Pain level max: 7 Pain level now: 7 - Additonal information Additional information: Patient is a 21-year-old female who presents to the emergency department complaint of a migraine headache. Started yesterday. Worse with light and sound. Took Tylenol without relief. She is also having dysuria and urinary frequency. No nausea or vomiting. She states she is having low back pain as well. No trauma. No falls. No fevers. No chills. No cough. No congestion. Denies any possibility of Review of Systems Constitutional: denies: Fever, Chills Respiratory: denies: Cough GI: denies: Vomiting, Diarrhea, Hematemesis, Bloody / black stool : reports: Dysuria, Frequency, Hesitancy. 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 #1 each 11/09/21 Insulin Aspart [NovoLOG] 5 unit SUBQ TIDWM 90 Days #90 11/09/21 Insulin Glargine [Lantus Solostar] 20 unit SQ QPM 90 Days #90 11/09/21 Lancets/Blood Glucose Strips [Pogo 1 each ACHS 90 Days #360 11/09/21 Automatic Test Cartridge] [place], Disposable [Needle] 1 each 5XD 90 Days #450 11/09/21 Syring-Needl,Disp,Insul,0.3 ml 1 each 5XD 90 Days #1 11/09/21 [Insulin Syringe] traZODone [Desyrel] 0.5 tab PO HS #45 tablet 11/09/21 HYDROcod/ACETAM 5/325 [[place] 5/325] 1 - 2 ea PO Q6H PRN #10 tablet 01/18/22 SUMAtriptan [Imitrex] 25 mg PO BID PRN #10 tablet 02/21/22 HYDROcod/ACETAM 5/325 [[place] 5/325] 1 ea PO Q6H PRN #10 tablet 03/19/22 Meloxicam [Mobic] 7.5 mg PO BID 10 Days #20 tablet 03/19/22 Ondansetron Odt [Zofran] 4 mg TL Q6H PRN #10 tablet 03/19/22 Nitrofurantoin [Macrobid] 100 mg PO BID #10 cap 03/27/22 SUMAtriptan [Imitrex] 25 mg PO BID PRN #10 tablet 03/27/22 - Allergies Allergies/Adverse Reactions: Allergies Allergy/AdvReac Type Severity Reaction Status Date / Time No Known Drug Allergies Allergy Verified 03/27/22 17:22 - Social History Does the pt smoke?: No Smoking Status: Never smoker Does the pt drink ETOH?: No Does the pt have substance abuse?: No - Immunizations Immunizations are current?: Yes Immunizations: TDAP >10years/unknown - POLST Patient has POLST: No PD ED PE NORMAL - Vitals Vital signs reviewed: Yes - General General: Alert and oriented X 3, No acute distress - HEENT HEENT: Moist mucous membranes - Neck Neck: Supple, no meningeal sign - Cardiac Cardiac: RRR, Strong equal pulses - Respiratory Respiratory: No respiratory distress, Clear bilaterally - Abdomen Abdomen: Soft, Non tender, Non distended - Derm Derm: Warm and dry - Neuro Neuro: Alert and oriented X 3 - Psych Psych: Normal mood, Normal affect Results - Vitals Vitals: Vital Signs - 24 hr 03/27/22 03/27/22 17:19 19:37 Temperature 37.8 C Heart Rate 132 H 108 H Respiratory 15 18 Rate Blood Pressure 143/87 H 138/78 H O2 Saturation 98 97 Oxygen O2 Source Room air - Labs Labs: Laboratory Tests 03/27/22 03/27/22 18:01 18:02 Urine Color YELLOW Urine Clarity CLOUDY Urine pH 6.0 Ur Specific [place] >=1.030 H Urine Protein NEGATIVE Urine Glucose (UA) NEGATIVE Urine Ketones >=80 H Urine Occult Blood MODERATE H Urine Nitrite NEGATIVE Urine Bilirubin NEGATIVE Urine Urobilinogen 1 (NORMAL) Ur Leukocyte Esterase NEGATIVE Urine RBC 6-10 H Urine WBC 0-3 Ur Squamous Epith Cells FEW Squamous Amorphous Sediment Marked Urine Bacteria Few Ur Microscopic Review INDICATED Urine Culture Comments NOT INDICATED Urine HCG, Qual NEGATIVE PD MEDICAL DECISION MAKING - ED course Complexity details: reviewed results, re-evaluated patient, considered differential, d/w patient ED course: Patient was given Toradol, Imitrex. Headache resolved. Feels much better. Patient does have bacteriuria and is symptomatic, therefore we will treat for UTI. Patient is well-appearing, nontoxic. Afebrile. No evidence of sepsis. No indication for head CT. No evidence of aneurysm, encephalitis, meningitis. Patient counseled regarding signs and symptoms for which I believe and urgent re-evaluation would be necessary. Patient with good understanding of and agreement to plan and is comfortable going home at this time This document was made in part using voice recognition software. While efforts are made to proofread this document, sound alike and grammatical errors may occur. Departure - Departure Disposition: Home, Self Care Clinical Impression: Migraine Qualifiers: Migraine type: unspecified Status migrainosus presence: without status migrainosus Intractability: not intractable Qualified Code(s): G43.909 - Migraine, unspecified, not intractable, without status migrainosus UTI (urinary tract infection) Qualifiers: Urinary tract infection type: acute cystitis Hematuria presence: without hematuria Qualified Code(s): N30.00 - Acute cystitis without hematuria Condition: Good Instructions: ED Headache Migraine, ED UTI Cystitis Female Follow-Up: your,doctor in 1 week [Other] Prescriptions: SUMAtriptan [Imitrex] 25 mg PO BID PRN #10 tablet PRN Reason: Migraine Nitrofurantoin [Macrobid] 100 mg PO BID #10 cap Comments: Your prescriptions were sent to [facility] in [place]. Please follow-up with your doctor for further care. Please return if you worsen. Take all antibiotics until gone. Discharge Date/Time: 03/27/22 19:45
[2022-03-27 18:45] LABS: GLUCOSE, URINE (UA) NEGATIVE (NEGATIVE); KETONES,URINE (UA) >=80 mg/dL (NEGATIVE); LEUKOCYTE ESTERASE, URINE NEGATIVE (NEGATIVE); NITRITE,URINE NEGATIVE (NEGATIVE); OCCULT BLOOD,URINE MODERATE (NEGATIVE); PROTEIN,URINE NEGATIVE (NEGATIVE); UROBILINOGEN,URINE 1 (NORMAL) E.U./dL (NORMAL)
[2022-03-27 18:47] LABS: CLARITY,URINE CLOUDY (CLEAR)
[2022-03-27 18:51] LABS: BILIRUBIN,URINE NEGATIVE (NEGATIVE); ICTOTEST,URINE NEGATIVE
[2022-03-27 18:51] LABS: HCG UR QUAL NEGATIVE
[2022-03-27 19:03] LABS: AMORPHOUS SEDIMENT,UR Marked /LPF; BACTERIA,URINE Few /HPF (None Seen); SQUAMOUS EPITHELIAL CELL,UR FEW Squamous (<= Few); WBC,URINE 0-3 /HPF (0-5)
[2022-03-27] MEDS ORDERED: NITROFURANTOIN MACRO 100 MG CAPSULE PO STA (19:30)
[2022-03-27 19:37] VITALS: BP 138/78
== END 2022-03-27 19:45 | disposition home or self-care (01) ==
LOC: ED 17:06
DX: G43.909 Migraine, unspecified, not intractable, without status migrainosus (principal); N30.00 Acute cystitis without hematuria
CPT/HCPCS: 81001; 81025; 96372; 99283; 99284; A9270; 81003; 87086

== ENCOUNTER 2022-04-27 13:29 | Outpatient (CLI) | payer MEDICAID ==
[2022-04-27 19:55] LABS: BASOPHILS # (AUTO) 0.1 10^3/uL (0.0-0.1); BASOPHILS % (AUTO) 0.3 %; EOSINOPHILS # (AUTO) 0.1 10^3/uL (0.0-0.7); EOSINOPHILS % (AUTO) 0.7 %; HCT - HEMATOCRIT 44.7 % (37.0-47.0); HGB - HEMOGLOBIN 14.2 g/dL (12.0-16.0); LYMPHOCYTES # (AUTO) 2.6 10^3/uL (1.5-3.5); LYMPHOCYTES % (AUTO) 16.8 %; MEAN CORPUSCULAR HEMOGLOBIN 26.6 pg (27.0-31.0); MEAN CORPUSCULAR HGB CONC 31.8 g/dL (32.0-36.0); MEAN CORPUSCULAR VOLUME 83.9 fL (81.0-99.0); MEAN PLATELET VOLUME 11.1 fL (7.9-10.8); MONOCYTES # (AUTO) 0.9 10^3/uL (0.0-1.0); NEUTROPHILS # (AUTO) 11.6 10^3/uL (1.5-6.6); NEUTROPHILS % (AUTO) 75.9 %; PLT - PLATELET COUNT 380 10^3/uL (130-450); RED BLOOD COUNT 5.33 10^6/uL (4.20-5.40); RED CELL DISTRIBUTION WIDTH 14.2 % (12.0-15.0); WHITE BLOOD COUNT 15.3 x10^3/uL (4.8-10.8)
[2022-04-27 20:13] LABS: ALBUMIN 3.9 g/dL (3.2-5.5); ALBUMIN/GLOBULIN RATIO 0.8 (1.0-2.2); BILIRUBIN,TOTAL 0.6 mg/dL (0.2-1.0); CALCIUM 9.7 mg/dL (8.5-10.3); CREATININE 0.5 mg/dL (0.4-1.0); POTASSIUM 4.2 mmol/L (3.5-5.0); TOTAL PROTEIN 8.7 g/dL (6.7-8.2)
[2022-04-27 20:24] LABS: THYROID STIMULATING HORMONE 1.48 uIU/mL (0.34-5.60)
[2022-04-27 21:15] LABS: ESTIMATED AVERAGE GLUCOSE 283 mg/dL (70-100); HEMOGLOBIN A1c% 11.5 % (4.27-6.07)
== END 2022-04-27 13:30 | disposition home or self-care (01) ==
LOC: LAB.S 13:29
PROVIDERS: ATTEND Physician Assistant
DX: R10.31 Right lower quadrant pain (principal)
CPT/HCPCS: 36415; 80053; 83036; 83690; 84443; 85025; 86140

== ENCOUNTER 2022-04-27 20:37 | Emergency (ER) | payer MEDICAID ==
--- NOTE | 2022-04-27 21:38 | ED Physician Documentation ---
History of Present Illness - Stated complaint Stated Complaint: Left lower abdominal pain - Chief complaint Chief Complaint: Abd Pain - History obtained from History obtained from: Patient - Additonal information Additional information: This is a 21-year-old transgender female who prefers Male pronouns and to go by the name Jr, Who presents with left lower abdomen pain. He was seen earlier today in the walk-in clinic for similar pain and had labs drawn which were largely stable though white blood cell count was 15,000. No additional testing was done and patient was told he was likely constipated and given GoLytely to take but advised to follow-up in the ER if symptoms worsen. Her pain increased from about a 5/10 to 7/10 this evening and thus he came into the ER. He has not had a fever, no nausea or vomiting, no diarrhea, no dysuria. Is tolerating PO ok. He has had irregular bleeding Since having a Nexplanon placed about 6 months ago But that seems to be improving. Pt seen last month for similar sx and had a negative TVUS, no ovarian cysts. Patient has no history of abdominal surgeries. He does state he is Currently living in a homeless fdc and he is not able to afford medication even [id number] medication. Right now he has out of his insulin because he had left his last month supply out and it was spoiled and the insurance would not refill the medication early. 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 : None HEENT: None Psych: Depression Musculoskeletal: None Derm: None - Past Surgical History Past Surgical History: No - Present Medications Home Medications: Ambulatory Orders Medication Instructions Recorded Confirmed Blood-Glucose Meter [Glucometer] 1 each ACHS #1 each 11/09/21 Insulin Aspart [NovoLOG] 5 unit SUBQ TIDWM 90 Days #90 11/09/21 Insulin Glargine [Lantus Solostar] 20 unit SQ QPM 90 Days #90 11/09/21 Lancets/Blood Glucose Strips [Pogo 1 each ACHS 90 Days #360 11/09/21 Automatic Test Cartridge] [place], Disposable [Needle] 1 each 5XD 90 Days #450 11/09/21 Syring-Needl,Disp,Insul,0.3 ml 1 each [place] 5XD 90 Days #1 11/09/21 [Insulin Syringe] traZODone [Desyrel] 0.5 tab PO HS #45 tablet 11/09/21 HYDROcod/ACETAM 5/325 [[place] 5/325] 1 - 2 ea PO Q6H PRN #10 tablet 01/18/22 SUMAtriptan [Imitrex] 25 mg PO BID PRN #10 tablet 02/21/22 HYDROcod/ACETAM 5/325 [[place] 5/325] 1 ea PO Q6H PRN #10 tablet 03/19/22 Meloxicam [Mobic] 7.5 mg PO BID 10 Days #20 tablet 03/19/22 Ondansetron Odt [Zofran] 4 mg TL Q6H PRN #10 tablet 03/19/22 Nitrofurantoin [Macrobid] 100 mg PO BID #10 cap 03/27/22 SUMAtriptan [Imitrex] 25 mg PO BID PRN #10 tablet 03/27/22 - Allergies Allergies/Adverse Reactions: Allergies Allergy/AdvReac Type Severity Reaction Status Date / Time No Known Drug Allergies Allergy Verified 04/27/22 20:43 - Social History Does the pt smoke?: No Smoking Status: Never smoker Does the pt drink ETOH?: No Does the pt have substance abuse?: No - Immunizations Immunizations are current?: Yes Immunizations: TDAP >10years/unknown - POLST Patient has POLST: No PD ED PE NORMAL - Vitals Vital signs reviewed: Yes - General General: Alert and oriented X 3, No acute distress, Well developed/nourished - HEENT HEENT: Atraumatic, Moist mucous membranes, Pharynx benign - Neck Neck: Supple, no meningeal sign, No JVD - Cardiac Cardiac: RRR, No murmur - Respiratory Respiratory: No respiratory distress, Clear bilaterally - Abdomen Abdomen: Normal bowel sounds, Soft, Non tender, Non distended, No organomegaly, Other (No reproducible tenderness.) - Derm Derm: Normal color, Warm and dry, No rash - Neuro Neuro: Alert and oriented X 3 Eye Opening: Spontaneous Motor: Obeys Commands Verbal: Oriented GCS Score: 15 - Psych Psych: Normal mood, Normal affect Results - Vitals Vitals: Vital Signs - 24 hr 04/27/22 20:39 Temperature 36.9 C Heart Rate 115 H Respiratory 18 Rate Blood Pressure 135/101 H O2 Saturation 98 Oxygen O2 Source Room air PD MEDICAL DECISION MAKING - ED course Complexity details: reviewed old records (Recent TVUS reviewed), reviewed results (Clinic lab results reviewed), re-evaluated patient, considered differential, d/w patient ED course: This is a 21-year-old Transgendered female who presents with Left lower quadrant abdominal pain since earlier today. He is well-appearing on physical exam, mildly tachycardic but afebrile, physical exam is reassuring, there is no focal abdominal pain, no guarding or rigidity. Differentials considered including ovarian cysts, I think less likely ovarian torsion, constipation, diverticulitis, uti, renal stone. Clinic CBC and CMP were reviewed and not repeated. We will obtain a UA however as this was not yet done. We will obtain abdominal xray to evaluate for possible constipation. This patient had a recent transvaginal ultrasound last month and I have low suspicion for torsion given no cysts noted on that exam therefore I would not repeat this today at this time. Given reassuring physical exam, I do not think a CT is indicated at this time. We will await the results of abd xray and UA and I anticipate patient can then discharge home.
[2022-04-27] MEDS ORDERED: SENNA 8.6 MG TABLET PO STA (22:00)
--- NOTE | 2022-04-27 22:05 | XRAY Report ---
PROCEDURE: Abdomen 2 View X-Ray INDICATIONS: llq pain TECHNIQUE: views of the abdomen were acquired. COMPARISON: CT abdomen pelvis 01/18/2022 FINDINGS: Surgical changes and devices: None. Bowel: No pneumoperitoneum. The bowel gas pattern is within normal limits. 2 Soft tissues: No suspicious abdominal calcifications. Bones: No suspicious bony abnormalities. IMPRESSION: 1. No acute intra-abdominal radiographic abnormality. Reviewed by: He Hopkins MD on 04/27/2022 10:03 PM [facility] Approved by: He Hopkins MD on 04/27/2022 10:03 PM [facility] Station ID: [id number]
--- NOTE | 2022-04-27 23:44 | ED Physician Documentation ---
ED Addendum - Addendum Addendum: 04/27/22 23:43 Patient received a signout from off going nurse practitioner, please see their documentation for further detail. Patient signed out to me with urine analysis pending. Patient was unable to provide urine sample. Was evaluated independently at bedside. Found to be resting comfortably. She reported that she felt well enough to go home. Encouraged her to return to the emergency department for new or worsening symptoms or to follow-up with primary care as needed. Clear return precautions given.
[2022-04-27 23:47] VITALS: BP 134/83
== END 2022-04-27 23:46 | disposition home or self-care (01) ==
LOC: ED 20:37
DX: R10.32 Left lower quadrant pain (principal); R10.31 Right lower quadrant pain; E11.9 Type 2 diabetes mellitus without complications; T38.3X6A Underdosing of insulin and oral hypoglycemic [antidiabetic] drugs, initial encounter; Z91.138 Patient's unintentional underdosing of medication regimen for other reason; Z59.01 Sheltered homelessness
CPT/HCPCS: 36415; 74019; 80053; 83036; 83690; 84443; 85025; 86140; 99282; 99284; A9270

== ENCOUNTER 2022-05-02 22:27 | Emergency (ER) | payer MEDICAID ==
[2022-05-02] MEDS ORDERED: SODIUM CHLORIDE 0.9% 1,000 ML IV STA (22:52)
[2022-05-02 23:09] LABS: BASOPHILS % (AUTO) 0.4 %; EOSINOPHILS # (AUTO) 0.1 10^3/uL (0.0-0.7); EOSINOPHILS % (AUTO) 0.7 %; HCT - HEMATOCRIT 40.9 % (37.0-47.0); HGB - HEMOGLOBIN 13.2 g/dL (12.0-16.0); LYMPHOCYTES # (AUTO) 3.4 10^3/uL (1.5-3.5); LYMPHOCYTES % (AUTO) 30.7 %; MEAN CORPUSCULAR HEMOGLOBIN 26.3 pg (27.0-31.0); MEAN CORPUSCULAR HGB CONC 32.3 g/dL (32.0-36.0); MEAN CORPUSCULAR VOLUME 81.5 fL (81.0-99.0); MEAN PLATELET VOLUME 10.7 fL (7.9-10.8); MONOCYTES # (AUTO) 0.8 10^3/uL (0.0-1.0); MONOCYTES % (AUTO) 6.9 %; NEUTROPHILS # (AUTO) 6.7 10^3/uL (1.5-6.6); NEUTROPHILS % (AUTO) 61.1 %; PLT - PLATELET COUNT 371 10^3/uL (130-450); RED BLOOD COUNT 5.02 10^6/uL (4.20-5.40); RED CELL DISTRIBUTION WIDTH 13.7 % (12.0-15.0); WHITE BLOOD COUNT 10.9 x10^3/uL (4.8-10.8)
[2022-05-02 23:17] LABS: VBG HCO3 28.5 mmol/L (23-28); VBG PCO2 48.9 mmHg (41-51); VBG PH 7.374 (7.31-7.41)
[2022-05-02 23:21] LABS: ALBUMIN 3.7 g/dL (3.2-5.5); ALBUMIN/GLOBULIN RATIO 0.8 (1.0-2.2); ALKALINE PHOSPHATASE 71 IU/L (42-121); ALT ALANINE AMINOTRANSFERASE 35 IU/L (10-60); AST ASPARTATE AMINOTRANSFERASE 21 IU/L (10-42); BILIRUBIN,TOTAL 0.4 mg/dL (0.2-1.0); BUN - BLOOD UREA NITROGEN 8 mg/dL (6-20); CALCIUM 9.3 mg/dL (8.5-10.3); CARBON DIOXIDE - CO2 28 mmol/L (21-32); CHLORIDE 97 mmol/L (101-111); CREATININE 0.6 mg/dL (0.4-1.0); GFR - MDRD 127 (>89); GLUCOSE 401 mg/dL (70-100); LIPASE 54 U/L (22-51); SODIUM 135 mmol/L (135-145); TOTAL PROTEIN 8.4 g/dL (6.7-8.2)
[2022-05-02 23:27] LABS: KETONES, SERUM (ACETEST) NEGATIVE (NEGATIVE)
[2022-05-02] MEDS ORDERED: INSULIN REGULAR HUMAN 100 UNIT/1 ML 10 ML MDV SUBQ STA (23:38)
[2022-05-03 01:10] VITALS: BP 121/69
[2022-05-03 01:18] LABS: BILIRUBIN,URINE NEGATIVE (NEGATIVE); GLUCOSE, URINE (UA) >=1000 mg/dL (NEGATIVE); KETONES,URINE (UA) NEGATIVE (NEGATIVE); LEUKOCYTE ESTERASE, URINE NEGATIVE (NEGATIVE); NITRITE,URINE NEGATIVE (NEGATIVE); OCCULT BLOOD,URINE MODERATE (NEGATIVE); PROTEIN,URINE NEGATIVE (NEGATIVE); UROBILINOGEN,URINE 0.2 (NORMAL) E.U./dL (NORMAL)
[2022-05-03 01:20] LABS: CLARITY,URINE CLEAR (CLEAR); HCG UR QUAL NEGATIVE
[2022-05-03 01:24] LABS: RBC,URINE 0-5 /HPF (0-5)
[2022-05-03 01:25] LABS: BACTERIA,URINE Few /HPF (None Seen); SQUAMOUS EPITHELIAL CELL,UR FEW Squamous (<= Few)
--- NOTE | 2022-05-03 01:26 | ED Physician Documentation ---
History of Present Illness - Stated complaint Stated Complaint: HIGH BLOOD SUGAR - Chief complaint Chief Complaint: General - History obtained from History obtained from: Patient - Additonal information Additional information: Patient is a 21-year-old insulin-dependent diabetic presenting for evaluation of elevated blood sugar readings. Patient prefers to go by he pronouns. Patient reports that recently he has not been doing well with checking blood sugars but has been trying to be better about it. He checked their blood sugar this evening and it was in the upper 300s and took the evening Lantus and short acting insulin(10 units). He then rechecked it and it had not gone down much. He was encouraged by a friend to come to the emergency department for evaluation. He reports feeling well without any complaints. Denies recent illness, vomiting, dysuria. 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, Other : None HEENT: None Psych: Depression Musculoskeletal: None Derm: None Other Past Medical History: PCOS - Past Surgical History Past Surgical History: No - Present Medications Home Medications: Ambulatory Orders Medication Instructions Recorded Confirmed Blood-Glucose Meter [Glucometer] 1 each [facility] #1 each 11/09/21 Insulin Aspart [NovoLOG] 5 unit SUBQ TIDWM 90 Days #90 11/09/21 Insulin Glargine [Lantus Solostar] 20 unit SQ QPM 90 Days #90 11/09/21 Lancets/Blood Glucose Strips [Pogo 1 each ACHS 90 Days #360 11/09/21 Automatic Test Cartridge] [place], Disposable [Needle] 1 each 5XD 90 Days #450 11/09/21 Syring-Needl,Disp,Insul,0.3 ml 1 each 5XD 90 Days #1 11/09/21 [Insulin Syringe] traZODone [Desyrel] 0.5 tab PO HS #45 tablet 11/09/21 HYDROcod/ACETAM 5/325 [[place] 5/325] 1 - 2 ea PO Q6H PRN #10 tablet 01/18/22 SUMAtriptan [Imitrex] 25 mg PO BID PRN #10 tablet 02/21/22 HYDROcod/ACETAM 5/325 [[place] 5/325] 1 ea PO Q6H PRN #10 tablet 03/19/22 Meloxicam [Mobic] 7.5 mg PO BID 10 Days #20 tablet 03/19/22 Ondansetron Odt [Zofran] 4 mg TL Q6H PRN #10 tablet 03/19/22 Nitrofurantoin [Macrobid] 100 mg PO BID #10 cap 03/27/22 SUMAtriptan [Imitrex] 25 mg PO BID PRN #10 tablet 03/27/22 - Allergies Allergies/Adverse Reactions: Allergies Allergy/AdvReac Type Severity Reaction Status Date / Time No Known Drug Allergies Allergy Verified 05/02/22 22:44 - Social History Does the pt smoke?: No Smoking Status: Never smoker Does the pt drink ETOH?: No Does the pt have substance abuse?: No - Immunizations Immunizations are current?: Yes Immunizations: TDAP >10years/unknown - POLST Patient has POLST: No PD ED PE NORMAL - General General: Alert and oriented X 3, No acute distress, Well developed/nourished - HEENT HEENT: Atraumatic, Moist mucous membranes, Pharynx benign - Neck Neck: Supple, no meningeal sign - Cardiac Cardiac: RRR, No murmur - Respiratory Respiratory: No respiratory distress, Clear bilaterally - Abdomen Abdomen: Soft, Non tender, Non distended - Derm Derm: Warm and dry - Extremities Extremities: No edema - Neuro Neuro: Normal speech Results - Vitals Vitals: Vital Signs - 24 hr 05/02/22 05/02/22 05/03/22 22:44 22:47 00:25 Temperature 36.7 C 36.7 C Heart Rate 100 100 67 Respiratory 16 16 16 Rate Blood Pressure 146/73 H 146/73 H 130/76 O2 Saturation 99 99 94 05/03/22 01:00 Temperature Heart Rate 88 Respiratory 16 Rate Blood Pressure 121/69 O2 Saturation 100 Oxygen O2 Source Room air - Labs Labs: Laboratory Tests 05/02/22 05/02/22 05/02/22 23:02 23:02 23:02 WBC 10.9 H RBC 5.02 Hgb 13.2 Hct 40.9 MCV 81.5 MCH 26.3 L MCHC 32.3 RDW 13.7 Plt Count 371 MPV 10.7 Neut # (Auto) 6.7 H Lymph # (Auto) 3.4 [place] # (Auto) 0.8 Eos # (Auto) 0.1 Baso # (Auto) 0.0 Absolute Nucleated RBC 0.00 Nucleated RBC % 0.0 VBG pH 7.374 VBG pCO2 48.9 VBG pO2 38.0 VBG HCO3 28.5 H VBG Total CO2 30.0 H VBG O2 Saturation 70.0 VBG Base Excess 3.0 H Sodium 135 Potassium 4.0 Chloride 97 L Carbon Dioxide 28 Anion Gap 10.0 BUN 8 Creatinine 0.6 Estimated GFR (MDRD) 127 Glucose 401 H Calcium 9.3 Total Bilirubin 0.4 AST 21 ALT 35 Alkaline Phosphatase 71 Total Protein 8.4 H Albumin 3.7 Globulin 4.8 H Albumin/Globulin Ratio 0.8 L Lipase 54 H Urine Color Urine Clarity Urine pH Ur Specific [place] Urine Protein Urine Glucose (UA) Urine Ketones Urine Occult Blood Urine Nitrite Urine Bilirubin Urine Urobilinogen Ur Leukocyte Esterase Urine RBC Urine WBC Ur Squamous Epith Cells Urine Bacteria Ur Microscopic Review Urine Culture Comments Urine HCG, Qual Serum Ketones NEGATIVE 05/03/22 01:12 WBC RBC Hgb Hct MCV MCH MCHC RDW Plt Count MPV Neut # (Auto) Lymph # (Auto) [place] # (Auto) Eos # (Auto) Baso # (Auto) Absolute Nucleated RBC Nucleated RBC % VBG pH VBG pCO2 VBG pO2 VBG HCO3 VBG Total CO2 VBG O2 Saturation VBG Base Excess Sodium Potassium Chloride Carbon Dioxide Anion Gap BUN Creatinine Estimated GFR (MDRD) Glucose Calcium Total Bilirubin AST ALT Alkaline Phosphatase Total Protein Albumin Globulin Albumin/Globulin Ratio Lipase Urine Color YELLOW Urine Clarity CLEAR Urine pH 7.0 Ur Specific [place] 1.010 Urine Protein NEGATIVE Urine Glucose (UA) >=1000 H Urine Ketones NEGATIVE Urine Occult Blood MODERATE H Urine Nitrite NEGATIVE Urine Bilirubin NEGATIVE Urine Urobilinogen 0.2 (NORMAL) Ur Leukocyte Esterase NEGATIVE Urine RBC 0-5 Urine WBC 4-5 Ur Squamous Epith Cells FEW Squamous Urine Bacteria Few Ur Microscopic Review INDICATED Urine Culture Comments NOT INDICATED Urine HCG, Qual NEGATIVE Serum Ketones PD MEDICAL DECISION MAKING - ED course Complexity details: reviewed results, re-evaluated patient, d/w patient ED course: Patient with hyperglycemia. Clinically and by labs does not appear to be in DKA. Received IV fluids and insulin with improvement in sugars. Has medications and glucometer at home. Encouraged close follow-up with PCP and encouraged trying to get into diabetes education as patient admits they do not have great understanding of Diabetes.Patient counseled on concerning symptoms to return for. Departure - Departure Disposition: Home, Self Care Clinical Impression: Hyperglycemia due to diabetes mellitus Condition: Stable Instructions: ED Hyperglycemia Diabetic Follow-Up: Davina Ramos ARNP [Primary Care Provider] - Comments: Your blood sugar was elevated but has come down with additional insulin and IV fluids. Please have close follow-up with your primary care doctor and you would benefit from diabetes education. Please make sure to take your medications as prescribed. If you have any Symptoms or concern she can [place] return to the emergency department. Discharge Date/Time: 05/03/22 01:36
== END 2022-05-03 01:36 | disposition home or self-care (01) ==
LOC: ED 22:27
DX: E11.65 Type 2 diabetes mellitus with hyperglycemia (principal); Z79.4 Long term (current) use of insulin
CPT/HCPCS: 36415; 80053; 81001; 81025; 82009; 82803; 83690; 85025; 96360; 99283; J1815; 81003; 87086

== ENCOUNTER 2022-05-03 21:40 | Emergency (ER) | payer MEDICAID ==
[2022-05-03 22:52] LABS: MUDS CUTOFF CONCENTRATIONS CUTOFF CONC BELOW:
[2022-05-03 22:52] LABS: BASOPHILS % (AUTO) 0.3 %; EOSINOPHILS # (AUTO) 0.1 10^3/uL (0.0-0.7); EOSINOPHILS % (AUTO) 0.9 %; HCT - HEMATOCRIT 40.2 % (37.0-47.0); LYMPHOCYTES # (AUTO) 3.1 10^3/uL (1.5-3.5); LYMPHOCYTES % (AUTO) 32.4 %; MEAN CORPUSCULAR HEMOGLOBIN 26.3 pg (27.0-31.0); MEAN CORPUSCULAR HGB CONC 32.3 g/dL (32.0-36.0); MEAN CORPUSCULAR VOLUME 81.2 fL (81.0-99.0); MEAN PLATELET VOLUME 10.6 fL (7.9-10.8); MONOCYTES # (AUTO) 0.6 10^3/uL (0.0-1.0); MONOCYTES % (AUTO) 6.5 %; NEUTROPHILS # (AUTO) 5.7 10^3/uL (1.5-6.6); NEUTROPHILS % (AUTO) 59.6 %; PLT - PLATELET COUNT 371 10^3/uL (130-450); RED BLOOD COUNT 4.95 10^6/uL (4.20-5.40); RED CELL DISTRIBUTION WIDTH 13.5 % (12.0-15.0); WHITE BLOOD COUNT 9.6 x10^3/uL (4.8-10.8)
[2022-05-03 22:55] LABS: BILIRUBIN,URINE NEGATIVE (NEGATIVE); GLUCOSE, URINE (UA) >=1000 mg/dL (NEGATIVE); KETONES,URINE (UA) NEGATIVE (NEGATIVE); LEUKOCYTE ESTERASE, URINE TRACE (NEGATIVE); NITRITE,URINE NEGATIVE (NEGATIVE); OCCULT BLOOD,URINE LARGE (NEGATIVE); PROTEIN,URINE NEGATIVE (NEGATIVE); UROBILINOGEN,URINE 0.2 (NORMAL) E.U./dL (NORMAL)
[2022-05-03 22:58] LABS: HCG UR QUAL NEGATIVE
[2022-05-03 23:05] LABS: CLARITY,URINE HAZY (CLEAR); SQUAMOUS EPITHELIAL CELL,UR FEW Squamous (<= Few)
[2022-05-03 23:06] LABS: BACTERIA,URINE Moderate /HPF (None Seen)
[2022-05-03 23:07] LABS: AMPHETAMINE SCREEN,URINE NEGATIVE (NEGATIVE); BARBITURATE SCREEN,UR NEGATIVE (NEGATIVE); BENZODIAZEPINES SCREEN, URINE NEGATIVE (NEGATIVE); COCAINE SCREEN URINE NEGATIVE (NEGATIVE); METHADONE SCREEN, URINE NEGATIVE (NEGATIVE); METHAMPHETAMINES SCREEN, URINE NEGATIVE (NEGATIVE); OPIATE SCREEN, URINE NEGATIVE (NEGATIVE); OXYCODONE SCREEN, URINE NEGATIVE (NEGATIVE); PROPOXYPHENE SCREEN, URINE NEGATIVE (NEGATIVE); THC CANNABINOID SCREEN, URINE NEGATIVE (NEGATIVE); TRICYCLIC ANTIDEPRESSANT,URINE NEGATIVE (NEGATIVE)
[2022-05-03 23:15] LABS: ACETAMINOPHEN < 10 ug/mL (10-30); ALBUMIN 3.8 g/dL (3.2-5.5); ALBUMIN/GLOBULIN RATIO 0.8 (1.0-2.2); ALKALINE PHOSPHATASE 72 IU/L (42-121); ALT ALANINE AMINOTRANSFERASE 37 IU/L (10-60); AST ASPARTATE AMINOTRANSFERASE 20 IU/L (10-42); BILIRUBIN,TOTAL < 0.2 mg/dL (0.2-1.0); BUN - BLOOD UREA NITROGEN 11 mg/dL (6-20); CALCIUM 9.4 mg/dL (8.5-10.3); CARBON DIOXIDE - CO2 26 mmol/L (21-32); CHLORIDE 100 mmol/L (101-111); CREATININE 0.5 mg/dL (0.4-1.0); ETOH - ETHANOL < 5.0 mg/dL; GFR - MDRD 157 (>89); GLUCOSE 395 mg/dL (70-100); LIPASE 56 U/L (22-51); POTASSIUM 4.2 mmol/L (3.5-5.0); SALICYLATE < 6.0 mg/dL; SODIUM 135 mmol/L (135-145); TOTAL PROTEIN 8.4 g/dL (6.7-8.2)
--- NOTE | 2022-05-03 23:25 | ED Physician Documentation ---
PD HPI MHE - Stated complaint Stated Complaint: SI - Chief complaint Chief Complaint: MHE - History obtained from History obtained from: Patient - History of Present Illness Primary symptom: Suicidal ideation Timing - onset: Today - Additional information Additional information: Patient tells me "I feel fine now and I want to go". Patient told ED RN in triage that she was having thoughts of running away into [place] and cutting her wrists with a knife. She confirms with me that she was having these thoughts earlier today but she says she no longer feels these thoughts or impulses and, again, requesting discharge. She says she is staying at a fdc where she can be watched; she says the fdc provides for checks every thirty minutes, and there is someone at bedside (in ED) who confirms that patient can be checked on and will not have any sharp objects with her. As patient presented to this ED voluntarily and is currently denying suicidal thoughts/intent, I do not have cause to hold patient against her will in ED and thus she is discharged. I did review services we can offer (telepsychiatric consult, social work consult in the morning, transfer to appropriate inpatient facility for psychiatric stabilization and treatment), and she declines these at this time. She says she will return or call 911 at any time she feels unsafe and wishes to be reevaluated. Furthermore, she says she will make calls herself later in the morning to mental health facilities to inquire about intake process. 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, Other : None HEENT: None Psych: Depression Musculoskeletal: None Derm: None - Past Surgical History Past Surgical History: No - Present Medications Home Medications: Ambulatory Orders Medication Instructions Recorded Confirmed Blood-Glucose Meter [Glucometer] 1 each ACHS #1 each 11/09/21 05/03/22 Insulin Aspart [NovoLOG] 5 unit SUBQ TIDWM 90 Days #90 11/09/21 05/03/22 Insulin Glargine [Lantus Solostar] 20 unit SQ QPM 90 Days #90 11/09/21 05/03/22 Lancets/Blood Glucose Strips [Pogo 1 each ACHS 90 Days #360 11/09/21 05/03/22 Automatic Test Cartridge] [place], Disposable [Needle] 1 each MC 5XD 90 Days #450 11/09/21 05/03/22 Syring-Needl,Disp,Insul,0.3 ml 1 each MC 5XD 90 Days #1 11/09/21 05/03/22 [Insulin Syringe] traZODone [Desyrel] 0.5 tab PO HS #45 tablet 11/09/21 05/03/22 HYDROcod/ACETAM 5/325 [[place] 5/325] 1 - 2 ea PO Q6H PRN #10 tablet 01/18/22 05/03/22 SUMAtriptan [Imitrex] 25 mg PO BID PRN #10 tablet 02/21/22 05/03/22 HYDROcod/ACETAM 5/325 [[place] 5/325] 1 ea PO Q6H PRN #10 tablet 03/19/22 05/03/22 Meloxicam [Mobic] 7.5 mg PO BID 10 Days #20 tablet 03/19/22 05/03/22 Ondansetron Odt [Zofran] 4 mg TL Q6H PRN #10 tablet 03/19/22 05/03/22 Nitrofurantoin [Macrobid] 100 mg PO BID #10 cap 03/27/22 05/03/22 SUMAtriptan [Imitrex] 25 mg PO BID PRN #10 tablet 03/27/22 05/03/22 Nitrofurantoin [Macrobid] 100 mg PO BID #9 cap 05/03/22 - Allergies Allergies/Adverse Reactions: Allergies Allergy/AdvReac Type Severity Reaction Status Date / Time No Known Drug Allergies Allergy Verified 05/02/22 22:44 - Social History Does the pt smoke?: No Smoking Status: Never smoker Does the pt drink ETOH?: No Does the pt have substance abuse?: No - Immunizations Immunizations are current?: Yes Immunizations: TDAP >10years/unknown - POLST Patient has POLST: No PD ED PE NORMAL - Vitals Vital signs reviewed: Yes (very limited PE (based on [id number] conversation; patient requests d/c)) - General General: Alert and oriented X 3, No acute distress - Neuro Neuro: Alert and oriented X 3 Eye Opening: Spontaneous Motor: Obeys Commands Verbal: Oriented GCS Score: 15 - Psych Psych: Normal mood, Normal affect Results - Vitals Vitals: Vital Signs - 24 hr 05/03/22 05/03/22 05/03/22 22:14 22:21 22:51 Temperature 36.8 C 36.8 C Heart Rate 102 H 102 H 90 Respiratory 16 16 16 Rate Blood Pressure 147/99 H 147/99 H 140/90 H O2 Saturation 96 96 98 05/03/22 05/03/22 23:21 23:27 Temperature 36.5 C Heart Rate 90 92 Respiratory 16 16 Rate Blood Pressure 140/80 H 140/82 H O2 Saturation 98 96 Oxygen O2 Source Room air - Labs Labs: Laboratory Tests 05/03/22 05/03/22 05/03/22 22:27 22:27 22:47 WBC 9.6 RBC 4.95 Hgb 13.0 Hct 40.2 MCV 81.2 MCH 26.3 L MCHC 32.3 RDW 13.5 Plt Count 371 MPV 10.6 Neut # (Auto) 5.7 Lymph # (Auto) 3.1 [place] # (Auto) 0.6 Eos # (Auto) 0.1 Baso # (Auto) 0.0 Absolute Nucleated RBC 0.00 Nucleated RBC % 0.0 Sodium Potassium Chloride Carbon Dioxide Anion Gap BUN Creatinine Estimated GFR (MDRD) Glucose Calcium Total Bilirubin AST ALT Alkaline Phosphatase Total Protein Albumin Globulin Albumin/Globulin Ratio Lipase TSH Urine Color YELLOW Urine Clarity HAZY Urine pH 7.0 Ur Specific [place] 1.010 Urine Protein NEGATIVE Urine Glucose (UA) >=1000 H Urine Ketones NEGATIVE Urine Occult Blood LARGE H Urine Nitrite NEGATIVE Urine Bilirubin NEGATIVE Urine Urobilinogen 0.2 (NORMAL) Ur Leukocyte Esterase TRACE H Urine RBC 6-10 H Urine WBC 6-10 H Ur Squamous Epith Cells FEW Squamous Urine Bacteria Moderate H Ur Microscopic Review INDICATED Urine Culture Comments INDICATED Urine HCG, Qual NEGATIVE Salicylates Urine Opiates Screen NEGATIVE Ur Oxycodone Screen NEGATIVE Urine Methadone Screen NEGATIVE Ur Propoxyphene Screen NEGATIVE Acetaminophen Ur Barbiturates Screen NEGATIVE Ur Tricyclics Screen NEGATIVE Ur Phencyclidine Scrn NEGATIVE Ur Amphetamine Screen NEGATIVE U Methamphetamines Scrn NEGATIVE U Benzodiazepines Scrn NEGATIVE Urine Cocaine Screen NEGATIVE U Cannabinoids Screen NEGATIVE Ethyl Alcohol 05/03/22 05/03/22 22:47 22:47 WBC RBC Hgb Hct MCV MCH MCHC RDW Plt Count MPV Neut # (Auto) Lymph # (Auto) [place] # (Auto) Eos # (Auto) Baso # (Auto) Absolute Nucleated RBC Nucleated RBC % Sodium 135 Potassium 4.2 Chloride 100 L Carbon Dioxide 26 Anion Gap 9.0 BUN 11 Creatinine 0.5 Estimated GFR (MDRD) 157 Glucose 395 H Calcium 9.4 Total Bilirubin < 0.2 L AST 20 ALT 37 Alkaline Phosphatase 72 Total Protein 8.4 H Albumin 3.8 Globulin 4.6 H Albumin/Globulin Ratio 0.8 L Lipase 56 H TSH 1.31 Urine Color Urine Clarity Urine pH Ur Specific [place] Urine Protein Urine Glucose (UA) Urine Ketones Urine Occult Blood Urine Nitrite Urine Bilirubin Urine Urobilinogen Ur Leukocyte Esterase Urine RBC Urine WBC Ur Squamous Epith Cells Urine Bacteria Ur Microscopic Review Urine Culture Comments Urine HCG, Qual Salicylates < 6.0 Urine Opiates Screen Ur Oxycodone Screen Urine Methadone Screen Ur Propoxyphene Screen Acetaminophen < 10 L Ur Barbiturates Screen Ur Tricyclics Screen Ur Phencyclidine Scrn Ur Amphetamine Screen U Methamphetamines Scrn U Benzodiazepines Scrn Urine Cocaine Screen U Cannabinoids Screen Ethyl Alcohol < 5.0 PD MEDICAL DECISION MAKING - ED course Complexity details: d/w patient ED course: Did not perform ROS and exam is limited to observation from [id number] conversation, as she is requesting d/c as soon as I introduce myself (see HPI, above). I did inform her of her hyperglycemia; she says she has not taken her nighttime insulin yet and will watch her blood sugars. Also noted is UA c/w UTI and she says she does have mild dysuria and frequency and thus given macrobid with rx for same. Departure - Departure Disposition: 01 Home, Self Care Clinical Impression: Hyperglycemia Depression Qualifiers: Depression Type: unspecified Qualified Code(s): F32.A - Depression, unspecified UTI (urinary tract infection) Qualifiers: Urinary tract infection type: acute cystitis Hematuria presence: with hematuria Qualified Code(s): N30.01 - Acute cystitis with hematuria Condition: Good Instructions: ED Hyperglycemia Diabetic, ED Depression, ED UTI Cystitis Female Follow-Up: Davina Ramos ARNP [Primary Care Provider] - Prescriptions: Nitrofurantoin [Macrobid] 100 mg PO BID #9 cap Comments: You are requesting discharge from the emergency department, declining further evaluation which can include psychiatric evaluation (telepsychiatric evaluation), social work evaluation (available during the day on weekdays), and possible transfer to an appropriate facility for inpatient psychiatric stabilization and care. Please return to the emergency department of call 911 if you feel unsafe and wish to be reevaluated. Your urinalysis was suggestive of a urinary tract infection. You were given a dose of antibiotic (nitrofurantoin) in the ER and a prescription for the rest of the five-day course of antibiotic has been electronically submitted to [facility] in [place] Discharge Date/Time: 05/03/22 23:56
[2022-05-03 23:28] VITALS: BP 140/82
[2022-05-03] MEDS ORDERED: NITROFURANTOIN MACRO 100 MG CAPSULE PO STA (23:44)
== END 2022-05-03 23:56 | disposition home or self-care (01) ==
LOC: ED 21:40
DX: F32.A Depression, unspecified (principal); N30.01 Acute cystitis with hematuria; E11.65 Type 2 diabetes mellitus with hyperglycemia; Z79.4 Long term (current) use of insulin
CPT/HCPCS: 36415; 80053; 80306; 80307; 80320; 80329; 81001; 81025; 83690; 84443; 85025; 87086; 99282; 99283; A9270; 81003

== ENCOUNTER 2022-05-29 12:31 | Emergency (ER) | payer MEDICAID ==
--- OUTSIDE RECORDS SUMMARY | 2022-05-29 13:00 | EXTERNAL MEDICAL SUMMARY RPT | Continuity of Care Document ---
:2000 Author Organization [facility] Address [address] [place] [address] Phone Care Team Providers Name Role Phone Unavailable Unavailable Unavailable Davina Dawn Unavailable Unavailable Allergies No information. Encounters No information. Functional Status No information. Immunizations No information. Medications date description facility 2022-04-27 00:00 insulin glargine [facility] 2022-04-28 00:00 insulin glargine [facility] 2022-05-02 00:00 insulin glargine [facility] 2022-05-03 00:00 insulin glargine [facility] 2022-05-04 00:00 insulin glargine [facility] 2022-04-27 00:00 metoclopramide hcl [facility] 2022-04-27 00:00 metoclopramide hcl [facility] 2022-04-27 00:00 glycerin (adult) [facility] 2022-04-27 00:00 insulin glargine [facility] 2022-04-28 00:00 insulin glargine [facility] 2022-05-02 00:00 insulin glargine [facility] 2022-05-03 00:00 insulin glargine [facility] 2022-05-04 00:00 insulin glargine [facility] 2022-04-27 00:00 insulin glargine [facility] 2022-04-28 00:00 insulin glargine [facility] 2022-05-02 00:00 insulin glargine [facility] 2022-05-03 00:00 insulin glargine [facility] 2022-05-04 00:00 insulin glargine [facility] 2022-04-27 00:00 metoclopramide hcl [facility] 2022-04-27 00:00 atorvastatin [facility] 2022-04-28 00:00 atorvastatin [facility] 2022-05-02 00:00 atorvastatin [facility] 2022-05-03 00:00 atorvastatin [facility] 2022-05-04 00:00 atorvastatin [facility] 2022-04-27 00:00 glycerin (adult) [facility] 2022-04-27 00:00 peg 3350-electrolytes [facility] 2022-04-27 00:00 atorvastatin [facility] 2022-04-28 00:00 atorvastatin [facility] 2022-05-02 00:00 atorvastatin [facility] 2022-05-03 00:00 atorvastatin [facility] 2022-05-04 00:00 atorvastatin [facility] 2022-04-27 00:00 peg 3350-electrolytes [facility] 2022-04-27 00:00 metoclopramide hcl [facility] 2022-04-27 00:00 glycerin (adult) [facility] 2022-04-27 00:00 atorvastatin [facility] 2022-04-28 00:00 atorvastatin [facility] 2022-05-02 00:00 atorvastatin [facility] 2022-05-03 00:00 atorvastatin [facility] 2022-05-04 00:00 atorvastatin [facility] 2022-04-27 00:00 atorvastatin [facility] 2022-04-28 00:00 atorvastatin [facility] 2022-05-02 00:00 atorvastatin [facility] 2022-05-03 00:00 atorvastatin [facility] 2022-05-04 00:00 atorvastatin [facility] 2022-04-27 00:00 insulin glargine [facility] 2022-04-28 00:00 insulin glargine [facility] 2022-05-02 00:00 insulin glargine [facility] 2022-05-03 00:00 insulin glargine [facility] 2022-05-04 00:00 insulin glargine [facility] 2022-04-27 00:00 peg 3350-electrolytes [facility] 2022-04-27 00:00 peg 3350-electrolytes [facility] Problems date description facility 2022-04-27 00:00 Constipation [facility] C [facility]er 2022-04-27 00:00 Elevated blood-pressure reading [facility] diagnosis [facility] 2022-04-27 00:00 Hemangioma [facility] Karla jalloh 2022-04-27 00:00 Acute diarrhea [facility] jalloh 2022-04-27 00:00 Diarrhea [facility] j[facility] 2022-04-27 00:00 Abdominal pain, right lower [facility] Primary [facility] & quadrant [facility] 2022-04-27 00:00 Elevated blood pressure reading [facility] & without diagnosis of hypertension [facility] 2022-04-27 00:00 Hemangioma of other sites [facility] jalloh 2022-04-27 00:00 Constipation, unspecified [facility] j[facility]oh 2022-04-27 00:00 Elevated blood-pressure reading, [facility]- [facility] & without diagnosis of hypertension [facility] 2022-04-27 00:00 Right lower quadrant pain [facility] jalloh 2022-04-27 00:00 Diarrhea, unspecified [facility]la jalloh 2022-04-28 00:00 Hemangioma [facility] jalloh 2022-04-28 00:00 Hemangioma of other sites [facility] j[facility] 2022-05-02 00:00 Hemangioma [facility] jalloh 2022-05-02 00:00 Hemangioma of other sites [facility] 2022-05-03 00:00 Hemangioma [facility] j[facility] 2022-05-03 00:00 Hemangioma of other sites [facility] 2022-05-04 00:00 Hemangioma [facility] j[facility] 2022-05-04 00:00 Hemangioma of other sites [facility] Procedures date description facility 2022-04-27 00:00 Visit Code Hold [facility] Results/Labs test date author facility value unit interpret ation Result panel 1 (unknown) (no date) (unknown) Walk-[facility] (no value) (units [facility] Result panel 2 (unknown) (no date) (unknown) Walk[facility] (no value) ([facility] Result panel 3 (unknown) (no date) (unknown) [facility] (no value) ([facility] Result panel 4 (unknown) (no date) (unknown) [facility] (no value) ([facility] Result panel 5 (unknown) (no date) (unknown) [facility] (no value) ([facility] Result panel 6 (unknown) (no date) (unknown) [facility] (no value) ([facility] Result panel 7 (unknown) (no date) (unknown) [facility] (no value) ([facility] Result panel 8 (unknown) (no date) (unknown) [facility] (no value) ([facility] Result panel 9 (unknown) (no date) (unknown) [facility] (no value) ([facility] Result panel 10 (unknown) (no date) (unknown) [facility] (no value) ([facility] Result panel 11 (unknown) (no date) (unknown) [facility] (no value) ([facility] Result panel 12 (unknown) (no date) (unknown) [facility] (no value) ([facility] Result panel 13 (unknown) (no date) (unknown) [facility] (no value) ([facility] Result panel 14 (unknown) (no date) (unknown) [facility] (no value) ([facility] ([facility] Result panel 15 (unknown) (no date) (unknown) [facility] (no value) ([facility] Result panel 16 (unknown) (no date) (unknown) [facility] (no value) ([facility] Result panel 17 (unknown) (no date) (unknown) [facility] (no value) ([facility] Result panel 18 (unknown) (no date) (unknown) [facility] (no value) ([facility] Result panel 19 (unknown) (no date) (unknown) [facility] (no value) ([facility] Result panel 20 (unknown) (no date) (unknown) [facility] (no value) ([facility] Result panel 21 (unknown) (no date) (unknown) [facility] (no value) ([facility] Result panel 22 (unknown) (no date) (unknown) [facility] (no value) ([facility] Result panel 23 (unknown) (no date) (unknown) [facility] (no value) ([facility] Result panel 24 (unknown) (no date) (unknown) [facility] (no value) ([facility] Result panel 25 (unknown) (no date) (unknown) [facility] (no value) ([facility] Result panel 26 (unknown) (no date) (unknown) [facility] (no value) ([facility] Result panel 27 (unknown) (no date) (unknown) [facility] (no value) ([facility] ([facility] Result panel 28 (unknown) (no date) (unknown) [facility] (no value) ([facility] ([facility] Result panel 29 (unknown) (no date) (unknown) [facility] (no value) ([facility] Result panel 30 (unknown) (no date) (unknown) Walk-[facility] (no value) (units ([facility] Result panel 31 (unknown) (no date) (unknown) [facility] (no value) ([facility] ([facility] Result panel 32 (unknown) (no date) (unknown) Walk-[facility] (no value) ([facility] ([facility] Result panel 33 (unknown) (no date) (unknown) [facility] (no value) ([facility] ([facility] Result panel 34 (unknown) (no date) (unknown) [facility] (no value) ([facility] ([facility] Result panel 35 (unknown) (no date) (unknown) [facility] (no value) ([facility] Result panel 36 (unknown) (no date) (unknown) [facility] (no value) ([facility] Result panel 37 (unknown) (no date) (unknown) [facility] (no value) ([facility] Result panel 38 (unknown) (no date) (unknown) [facility] (no value) ([facility] Result panel 39 (unknown) (no date) (unknown) [facility] (no value) ([facility] Result panel 40 (unknown) (no date) (unknown) [facility] (no value) ([facility] Result panel 41 (unknown) (no date) (unknown) [facility] (no value) ([facility] Result panel 42 (unknown) (no date) (unknown) [facility] (no value) ([facility] Result panel 43 (unknown) (no date) (unknown) [facility] (no value) ([facility] Result panel 44 (unknown) (no date) (unknown) [facility] (no value) ([facility] Result panel 45 (unknown) (no date) (unknown) [facility] (no value) ([facility] Result panel 46 (unknown) (no date) (unknown) [facility] (no value) ([facility] Result panel 47 (unknown) (no date) (unknown) [facility] (no value) ([facility] Result panel 48 (unknown) (no date) (unknown) [facility] (no value) ([facility] Result panel 49 (unknown) (no date) (unknown) [facility] (no value) ([facility] Result panel 50 (unknown) (no date) (unknown) [facility] (no value) ([facility] Result panel 51 (unknown) (no date) (unknown) [facility] (no value) ([facility] Result panel 52 (unknown) (no date) (unknown) [facility] (no value) ([facility] Result panel 53 (unknown) (no date) (unknown) [facility] (no value) ([facility] Result panel 54 (unknown) (no date) (unknown) [facility] (no value) ([facility] Result panel 55 (unknown) (no date) (unknown) [facility] (no value) ([facility] Result panel 56 (unknown) (no date) (unknown) [facility] (no value) ([facility] Result panel 57 (unknown) (no date) (unknown) [facility] (no value) ([facility] Result panel 58 (unknown) (no date) (unknown) [facility] (no value) (units ([facility] Result panel 59 (unknown) (no date) (unknown) [facility] (no value) ([facility] Result panel 60 (unknown) (no date) (unknown) [facility] (no value) ([facility] Result panel 61 (unknown) (no date) (unknown) Walk-[facility] (no value) (units ([facility] Result panel 62 (unknown) (no date) (unknown) Walk-[facility] (no value) (units ([facility]own[facility] Result panel 63 (unknown) (no date) (unknown) Walk-[facility] (no value) ([facility] ([facility] Result panel 64 (unknown) (no date) (unknown) [facility] (no value) ([facility] Result panel 65 (unknown) (no date) (unknown) Walk-[facility] (no value) (units ([facility] Result panel 66 (unknown) (no date) (unknown) [facility] (no value) (units ([facility] Result panel 67 (unknown) (no date) (unknown) [facility] (no value) (units ([facility] Result panel 68 (unknown) (no date) (unknown) Walk-[facility] (no value) ([facility] ([facility] Result panel 69 (unknown) (no date) (unknown) Walk-[facility] (no value) ([facility] ([facility] Result panel 70 (unknown) (no date) (unknown) Walk-[facility] (no value) (units ([facility]own[facility] Result panel 71 (unknown) (no date) (unknown) Walk-[facility] (no value) (units ([facility] nown[facility] Result panel 72 (unknown) (no date) (unknown) Walk-[facility] (no value) (units ([facility] nown[facility] Result panel 73 (unknown) (no date) (unknown) Walk-[facility] (no value) (units ([facility] nown[facility] Result panel 74 (unknown) (no date) (unknown) Walk-[facility] (no value) (units ([facility] nown[facility] Result panel 75 (unknown) (no date) (unknown) Walk-[facility] (no value) (units ([facility]own[facility] Result panel 76 (unknown) (no date) (unknown) Walk-[facility] (no value) (units ([facility]own[facility] Result panel 77 (unknown) (no date) (unknown) Walk-[facility] (no value) (units ([facility] Result panel 78 (unknown) (no date) (unknown) [facility] (no value) ([facility] ([facility] Result panel 79 (unknown) (no date) (unknown) Walk-[facility] (no value) (units ([facility] Result panel 80 (unknown) (no date) (unknown) Walk-[facility] (no value) (units ([facility] Result panel 81 (unknown) (no date) (unknown) Walk-[facility] (no value) (units ([facility] Result panel 82 (unknown) (no date) (unknown) Walk-[facility] (no value) ([facility] ([facility] Result panel 83 (unknown) (no date) (unknown) Walk-[facility] (no value) (units ([facility] Result panel 84 (unknown) (no date) (unknown) Walk-[facility] (no value) (units ([facility] Result panel 85 (unknown) (no date) (unknown) Walk-[facility] (no value) (units ([facility]own[facility] Result panel 86 (unknown) (no date) (unknown) Walk-[facility] (no value) (units ([facility] Result panel 87 (unknown) (no date) (unknown) Walk-[facility] (no value) (units ([facility] Result panel 88 (unknown) (no date) (unknown) Walk-[facility] (no value) (units ([facility] nown[facility] Result panel 89 (unknown) (no date) (unknown) Walk-[facility] (no value) (units ([facility] nown[facility] Result panel 90 (unknown) (no date) (unknown) Walk-[facility] (no value) (units ([facility]own[facility] Result panel 91 (unknown) (no date) (unknown) Walk-[facility] (no value) (units ([facility] nown[facility] Result panel 92 (unknown) (no date) (unknown) Walk-[facility] (no value) (units ([facility] nown[facility] Result panel 93 (unknown) (no date) (unknown) Walk-[facility] (no value) (units ([facility] nown[facility] Result panel 94 (unknown) (no date) (unknown) Walk-[facility] (no value) (units ([facility] nown[facility] Result panel 95 (unknown) (no date) (unknown) Walk-[facility] (no value) (units ([facility] nown[facility] Result panel 96 (unknown) (no date) (unknown) Walk-[facility] (no value) (units ([facility] nown[facility] Result panel 97 (unknown) (no date) (unknown) Walk-[facility] (no value) (units ([facility] Result panel 98 (unknown) (no date) (unknown) Walk-[facility] (no value) (units ([facility] nown[facility] Result panel 99 (unknown) (no date) (unknown) Walk-[facility] (no value) (units ([facility] nown[facility] Result panel 100 (unknown) (no date) (unknown) Walk-[facility] (no value) (units ([facility] nown[facility] Result panel 101 (unknown) (no date) (unknown) Walk-[facility] (no value) (units ([facility] nown[facility] Result panel 102 (unknown) (no date) (unknown) Walk-[facility] (no value) (units ([facility] nown[facility] Result panel 103 (unknown) (no date) (unknown) Walk-[facility] (no value) (units ([facility] nown[facility] Result panel 104 (unknown) (no date) (unknown) Walk-[facility] (no value) (units ([facility] nown[facility] Result panel 105 (unknown) (no date) (unknown) Walk-In (no value) (units ([facility] nown[facility] Result panel 106 (unknown) (no date) (unknown) Walk-[facility] (no value) (units ([facility] nown[facility] Result panel 107 (unknown) (no date) (unknown) Walk-[facility] (no value) (units ([facility] nown[facility] Result panel 108 (unknown) (no date) (unknown) Walk-In (no value) (units ([facility] nown[facility] Result panel 109 (unknown) (no date) (unknown) Walk-In (no value) (units ([facility] nown[facility] Result panel 110 (unknown) (no date) (unknown) Walk-In (no value) (units ([facility] nown[facility] Result panel 111 (unknown) (no date) (unknown) Walk-In (no value) (units ([facility] nown) [facility] Result panel 112 (unknown) (no date) (unknown) Walk-In (no value) (units ([facility] nown[facility] Result panel 113 (unknown) (no date) (unknown) Walk-In (no value) (units ([facility] nown[facility] Result panel 114 (unknown) (no date) (unknown) Walk-In (no value) (units ([facility] nown) [facility] unknown[facility] Result panel 115 (unknown) (no date) (unknown) [facility] (no value) [facility] Result panel 116 (unknown) (no date) (unknown) [facility] (no value) [facility] Result panel 117 (unknown) (no date) (unknown) [facility] (no value) [facility] Result panel 118 (unknown) (no date) (unknown) [facility] (no value) [facility] Result panel 119 (unknown) (no date) (unknown) [facility] (no value) [facility] Result panel 120 (unknown) (no date) (unknown) [facility] (no value) [facility] Result panel 121 (unknown) (no date) (unknown) [facility] (no value) [facility] Result panel 122 (unknown) (no date) (unknown) [facility] (no value) [facility] Result panel 123 (unknown) (no date) (unknown) [facility] (no value) [facility] Result panel 124 (unknown) (no date) (unknown) [facility] (no value) [facility] Result panel 125 (unknown) (no date) (unknown) [facility] (no value) [facility] Result panel 126 (unknown) (no date) (unknown) [facility] (no value) [facility] Result panel 127 (unknown) (no date) (unknown) [facility] (no value) [facility] Result panel 128 (unknown) (no date) (unknown) [facility] (no value) [facility] Result panel 129 (unknown) (no date) (unknown) [facility] (no value) [facility] Result panel 130 (unknown) (no date) (unknown) [facility] (no value) [facility] Result panel 131 (unknown) (no date) (unknown) [facility] (no value) [facility] Result panel 132 (unknown) (no date) (unknown) [facility] (no value) [facility] Result panel 133 (unknown) (no date) (unknown) [facility] (no value) [facility] Result panel 134 (unknown) (no date) (unknown) [facility] (no value) [facility] Result panel 135 (unknown) (no date) (unknown) [facility] (no value) [facility] Result panel 136 (unknown) (no date) (unknown) [facility] (no value) [facility] Result panel 137 (unknown) (no date) (unknown) [facility] (no value) [facility] Result panel 138 (unknown) (no date) (unknown) [facility] (no value) [facility] Result panel 139 (unknown) (no date) (unknown) [facility] (no value) [facility] Result panel 140 (unknown) (no date) (unknown) [facility] (no value) [facility] Result panel 141 (unknown) (no date) (unknown) [facility] (no value) [facility] Result panel 142 (unknown) (no date) (unknown) [facility] (no value) [facility] Result panel 143 (unknown) (no date) (unknown) [facility] (no value) [facility] Result panel 144 (unknown) (no date) (unknown) [facility] (no value) [facility] Result panel 145 (unknown) (no date) (unknown) [facility] (no value) [facility] Result panel 146 (unknown) (no date) (unknown) [facility] (no value) [facility] Result panel 147 (unknown) (no date) (unknown) [facility] (no value) [facility] Result panel 148 (unknown) (no date) (unknown) [facility] (no value) [facility] Result panel 149 (unknown) (no date) (unknown) [facility] (no value) [facility] Result panel 150 (unknown) (no date) (unknown) [facility] (no value) [facility] Result panel 151 (unknown) (no date) (unknown) [facility] (no value) [facility] Result panel 152 (unknown) (no date) (unknown) [facility] (no value) [facility] Result panel 153 (unknown) (no date) (unknown) [facility] (no value) [facility] Result panel 154 (unknown) (no date) (unknown) [facility] (no value) [facility] Result panel 155 (unknown) (no date) (unknown) [facility] (no value) [facility] Result panel 156 (unknown) (no date) (unknown) [facility] (no value) [facility] Result panel 157 (unknown) (no date) (unknown) [facility] (no value) [facility] Result panel 158 (unknown) (no date) (unknown) [facility] (no value) [facility] Result panel 159 (unknown) (no date) (unknown) [facility] (no value) [facility] Result panel 160 (unknown) (no date) (unknown) [facility] (no value) [facility] Result panel 161 (unknown) (no date) (unknown) [facility] (no value) [facility] Result panel 162 (unknown) (no date) (unknown) [facility] (no value) [facility] Result panel 163 (unknown) (no date) (unknown) [facility] (no value) [facility] Result panel 164 (unknown) (no date) (unknown) [facility] (no value) [facility] Result panel 165 (unknown) (no date) (unknown) [facility] (no value) [facility] Result panel 166 (unknown) (no date) (unknown) [facility] (no value) [facility] Result panel 167 (unknown) (no date) (unknown) [facility] (no value) [facility] Result panel 168 (unknown) (no date) (unknown) [facility] (no value) [facility] Result panel 169 (unknown) (no date) (unknown) [facility] (no value) [facility] Result panel 170 (unknown) (no date) (unknown) [facility] (no value) [facility] Result panel 171 (unknown) (no date) (unknown) [facility] (no value) [facility] Result panel 172 (unknown) (no date) (unknown) [facility] (no value) [facility] Result panel 173 (unknown) (no date) (unknown) [facility] (no value) [facility] Result panel 174 (unknown) (no date) (unknown) [facility] (no value) [facility] Result panel 175 (unknown) (no date) (unknown) [facility] (no value) [facility] Result panel 176 (unknown) (no date) (unknown) [facility] (no value) [facility] Result panel 177 (unknown) (no date) (unknown) [facility] (no value) [facility] Result panel 178 (unknown) (no date) (unknown) [facility] (no value) [facility] Result panel 179 (unknown) (no date) (unknown) [facility] (no value) [facility] Result panel 180 (unknown) (no date) (unknown) [facility] (no value) [facility] Result panel 181 (unknown) (no date) (unknown) [facility] (no value) [facility] Result panel 182 (unknown) (no date) (unknown) [facility] (no value) [facility] Result panel 183 (unknown) (no date) (unknown) [facility] (no value) [facility] Result panel 184 (unknown) (no date) (unknown) [facility] (no value) [facility] Result panel 185 (unknown) (no date) (unknown) [facility] (no value) [facility] Result panel 186 (unknown) (no date) (unknown) [facility] (no value) [facility] Result panel 187 (unknown) (no date) (unknown) [facility] (no value) [facility] Result panel 188 (unknown) (no date) (unknown) [facility] (no value) [facility] Result panel 189 (unknown) (no date) (unknown) [facility] (no value) [facility] Result panel 190 (unknown) (no date) (unknown) [facility] (no value) [facility] Result panel 191 (unknown) (no date) (unknown) [facility] (no value) [facility] Result panel 192 (unknown) (no date) (unknown) [facility] (no value) [facility] Result panel 193 (unknown) (no date) (unknown) [facility] (no value) [facility] Result panel 194 (unknown) (no date) (unknown) [facility] (no value) [facility] Result panel 195 (unknown) (no date) (unknown) [facility] (no value) [facility] Result panel 196 (unknown) (no date) (unknown) [facility] (no value) [facility] Result panel 197 (unknown) (no date) (unknown) [facility] (no value) [facility] Result panel 198 (unknown) (no date) (unknown) [facility] (no value) [facility] Result panel 199 (unknown) (no date) (unknown) [facility] (no value) [facility] Result panel 200 (unknown) (no date) (unknown) [facility] (no value) [facility] Result panel 201 (unknown) (no date) (unknown) [facility] (no value) [facility] Result panel 202 (unknown) (no date) (unknown) [facility] (no value) [facility] Result panel 203 (unknown) (no date) (unknown) [facility] (no value) [facility] Result panel 204 (unknown) (no date) (unknown) [facility] (no value) [facility] Result panel 205 (unknown) (no date) (unknown) [facility] (no value) [facility] Result panel 206 (unknown) (no date) (unknown) [facility] (no value) [facility] Result panel 207 (unknown) (no date) (unknown) [facility] (no value) [facility] Result panel 208 (unknown) (no date) (unknown) [facility] (no value) [facility] Result panel 209 (unknown) (no date) (unknown) [facility] (no value) [facility] Result panel 210 (unknown) (no date) (unknown) [facility] (no value) [facility] Result panel 211 (unknown) (no date) (unknown) [facility] (no value) [facility] Result panel 212 (unknown) (no date) (unknown) [facility] (no value) [facility] Result panel 213 (unknown) (no date) (unknown) [facility] (no value) [facility] Result panel 214 (unknown) (no date) (unknown) [facility] (no value) [facility] Result panel 215 (unknown) (no date) (unknown) [facility] (no value) [facility] Result panel 216 (unknown) (no date) (unknown) [facility] (no value) [facility] Result panel 217 (unknown) (no date) (unknown) [facility] (no value) [facility] Result panel 218 (unknown) (no date) (unknown) [facility] (no value) [facility] Result panel 219 (unknown) (no date) (unknown) [facility] (no value) [facility] Result panel 220 (unknown) (no date) (unknown) [facility] (no value) [facility] Result panel 221 (unknown) (no date) (unknown) [facility] (no value) [facility] Result panel 222 (unknown) (no date) (unknown) [facility] (no value) [facility] Result panel 223 (unknown) (no date) (unknown) [facility] (no value) [facility] Result panel 224 (unknown) (no date) (unknown) [facility] (no value) [facility] Result panel 225 (unknown) (no date) (unknown) [facility] (no value) [facility] Result panel 226 (unknown) (no date) (unknown) [facility] (no value) [facility] Result panel 227 (unknown) (no date) (unknown) [facility] (no value) [facility] Result panel 228 (unknown) (no date) (unknown) [facility] (no value) [facility] Result panel 229 (unknown) (no date) (unknown) [facility] (no value) [facility] Result panel 230 (unknown) (no date) (unknown) [facility] (no value) [facility] Result panel 231 (unknown) (no date) (unknown) [facility] (no value) [facility] Result panel 232 (unknown) (no date) (unknown) [facility] (no value) [facility] Result panel 233 (unknown) (no date) (unknown) [facility] (no value) [facility] Result panel 234 (unknown) (no date) (unknown) [facility] (no value) [facility] Result panel 235 (unknown) (no date) (unknown) [facility] (no value) [facility] Result panel 236 (unknown) (no date) (unknown) [facility] (no value) [facility] Result panel 237 (unknown) (no date) (unknown) [facility] (no value) [facility] Result panel 238 (unknown) (no date) (unknown) [facility] (no value) [facility] Result panel 239 (unknown) (no date) (unknown) [facility] (no value) [facility] Result panel 240 (unknown) (no date) (unknown) [facility] (no value) [facility] Result panel 241 (unknown) (no date) (unknown) [facility] (no value) [facility] Result panel 242 (unknown) (no date) (unknown) [facility] (no value) [facility] Result panel 243 (unknown) (no date) (unknown) [facility] (no value) [facility] Result panel 244 (unknown) (no date) (unknown) [facility] (no value) [facility] Result panel 245 (unknown) (no date) (unknown) [facility] (no value) [facility] Result panel 246 (unknown) (no date) (unknown) [facility] (no value) [facility] Result panel 247 (unknown) (no date) (unknown) [facility] (no value) [facility] Result panel 248 (unknown) (no date) (unknown) [facility] (no value) [facility] Result panel 249 (unknown) (no date) (unknown) [facility] (no value) [facility] Result panel 250 (unknown) (no date) (unknown) [facility] (no value) [facility] Result panel 251 (unknown) (no date) (unknown) [facility] (no value) [facility] Result panel 252 (unknown) (no date) (unknown) [facility] (no value) [facility] Result panel 253 (unknown) (no date) (unknown) [facility] (no value) [facility] Result panel 254 (unknown) (no date) (unknown) [facility] (no value) [facility] Result panel 255 (unknown) (no date) (unknown) [facility] (no value) [facility] Result panel 256 (unknown) (no date) (unknown) [facility] (no value) [facility] Result panel 257 (unknown) (no date) (unknown) [facility] (no value) [facility] Result panel 258 (unknown) (no date) (unknown) [facility] (no value) [facility] Result panel 259 (unknown) (no date) (unknown) [facility] (no value) [facility] Result panel 260 (unknown) (no date) (unknown) [facility] (no value) [facility] Result panel 261 (unknown) (no date) (unknown) [facility] (no value) [facility] Result panel 262 (unknown) (no date) (unknown) [facility] (no value) [facility] Result panel 263 (unknown) (no date) (unknown) [facility] (no value) [facility] Result panel 264 (unknown) (no date) (unknown) [facility] (no value) [facility] Result panel 265 (unknown) (no date) (unknown) [facility] (no value) [facility] Result panel 266 (unknown) (no date) (unknown) [facility] (no value) [facility] Result panel 267 (unknown) (no date) (unknown) [facility] (no value) [facility] Result panel 268 (unknown) (no date) (unknown) [facility] (no value) [facility] Result panel 269 (unknown) (no date) (unknown) [facility] (no value) [facility] Result panel 270 (unknown) (no date) (unknown) [facility] (no value) [facility] Result panel 271 (unknown) (no date) (unknown) [facility] (no value) [facility] Result panel 272 (unknown) (no date) (unknown) [facility] (no value) [facility] Result panel 273 (unknown) (no date) (unknown) [facility] (no value) [facility] Result panel 274 (unknown) (no date) (unknown) [facility] (no value) [facility] Result panel 275 (unknown) (no date) (unknown) [facility] (no value) [facility] Result panel 276 (unknown) (no date) (unknown) [facility] (no value) [facility] Result panel 277 (unknown) (no date) (unknown) [facility] (no value) [facility] Result panel 278 (unknown) (no date) (unknown) [facility] (no value) [facility] Result panel 279 (unknown) (no date) (unknown) [facility] (no value) [facility] Result panel 280 (unknown) (no date) (unknown) [facility] (no value) [facility] Result panel 281 (unknown) (no date) (unknown) [facility] (no value) [facility] [facility] Result panel 282 (unknown) (no date) (unknown) [facility] (no value[facility] Result panel 283 (unknown) (no date) (unknown) [facility] (no value) [facility] Result panel 284 (unknown) (no date) (unknown) [facility] (no value) [facility] Result panel 285 (unknown) (no date) (unknown) [facility] (no value) [facility] Result panel 286 (unknown) (no date) (unknown) [facility] (no value) [facility] Result panel 287 (unknown) (no date) (unknown) [facility] (no value) [facility] Result panel 288 (unknown) (no date) (unknown) [facility] (no value) [facility] Result panel 289 (unknown) (no date) (unknown) [facility] (no value) [facility] Result panel 290 (unknown) (no date) (unknown) [facility] (no value) [facility] Result panel 291 (unknown) (no date) (unknown) [facility] (no value) [facility] Result panel 292 (unknown) (no date) (unknown) [facility] (no value) [facility] Result panel 293 (unknown) (no date) (unknown) [facility] (no value) [facility] Result panel 294 (unknown) (no date) (unknown) [facility] (no value) [facility] Result panel 295 (unknown) (no date) (unknown) [facility] (no value) [facility] Result panel 296 (unknown) (no date) (unknown) [facility] (no value) [facility] Result panel 297 (unknown) (no date) (unknown) [facility] (no value) [facility] Result panel 298 (unknown) (no date) (unknown) [facility] (no value) [facility] Result panel 299 (unknown) (no date) (unknown) [facility] (no value) [facility] Result panel 300 (unknown) (no date) (unknown) [facility] (no value) [facility] Result panel 301 (unknown) (no date) (unknown) [facility] (no value) [facility] Result panel 302 (unknown) (no date) (unknown) [facility] (no value) [facility] Result panel 303 (unknown) (no date) (unknown) [facility] (no value) [facility] Result panel 304 (unknown) (no date) (unknown) [facility] (no value) [facility] Result panel 305 (unknown) (no date) (unknown) [facility] (no value) [facility] Result panel 306 (unknown) (no date) (unknown) [facility] (no value) [facility] Result panel 307 (unknown) (no date) (unknown) [facility] (no value) [facility] Result panel 308 (unknown) (no date) (unknown) [facility] (no value) [facility] Result panel 309 (unknown) (no date) (unknown) [facility] (no value) [facility] Result panel 310 (unknown) (no date) (unknown) [facility] (no value) [facility] Result panel 311 (unknown) (no date) (unknown) [facility] (no value) [facility] Result panel 312 (unknown) (no date) (unknown) [facility] (no value) [facility] Result panel 313 (unknown) (no date) (unknown) [facility] (no value) [facility] Result panel 314 (unknown) (no date) (unknown) [facility] (no value) [facility] Result panel 315 (unknown) (no date) (unknown) [facility] (no value) [facility] Result panel 316 (unknown) (no date) (unknown) [facility] (no value) [facility] Result panel 317 (unknown) (no date) (unknown) [facility] (no value) [facility] Result panel 318 (unknown) (no date) (unknown) [facility] (no value) [facility] Result panel 319 (unknown) (no date) (unknown) [facility] (no value) [facility] Result panel 320 (unknown) (no date) (unknown) [facility] (no value) [facility] Result panel 321 (unknown) (no date) (unknown) [facility] (no value) [facility] Result panel 322 (unknown) (no date) (unknown) [facility] (no value) [facility] Result panel 323 (unknown) (no date) (unknown) [facility] (no value) [facility] Result panel 324 (unknown) (no date) (unknown) [facility] (no value) [facility] Result panel 325 (unknown) (no date) (unknown) [facility] (no value) [facility] Result panel 326 (unknown) (no date) (unknown) [facility] (no value) [facility] Result panel 327 (unknown) (no date) (unknown) [facility] (no value) [facility] Result panel 328 (unknown) (no date) (unknown) [facility] (no value) [facility] Result panel 329 (unknown) (no date) (unknown) [facility] (no value) [facility] Result panel 330 (unknown) (no date) (unknown) [facility] (no value) [facility] Result panel 331 (unknown) (no date) (unknown) [facility] (no value) [facility] Result panel 332 (unknown) (no date) (unknown) [facility] (no value) [facility] Result panel 333 (unknown) (no date) (unknown) [facility] (no value) [facility] Result panel 334 (unknown) (no date) (unknown) [facility] (no value) [facility] Result panel 335 (unknown) (no date) (unknown) [facility] (no value) [facility] Result panel 336 (unknown) (no date) (unknown) [facility] (no value) [facility] Result panel 337 (unknown) (no date) (unknown) [facility] (no value) [facility] Result panel 338 (unknown) (no date) (unknown) [facility] (no value) [facility] Result panel 339 (unknown) (no date) (unknown) [facility] (no value) [facility] Result panel 340 (unknown) (no date) (unknown) [facility] (no value) [facility] Result panel 341 (unknown) (no date) (unknown) [facility] (no value) [facility] Result panel 342 (unknown) (no date) (unknown) [facility] (no value) [facility] Result panel 343 (unknown) (no date) (unknown) [facility] (no value) [facility] Result panel 344 (unknown) (no date) (unknown) [facility] (no value) [facility] Result panel 345 (unknown) (no date) (unknown) [facility] (no value) [facility] Result panel 346 (unknown) (no date) (unknown) [facility] (no value) [facility] Result panel 347 (unknown) (no date) (unknown) [facility] (no value) [facility] Result panel 348 (unknown) (no date) (unknown) [facility] (no value) [facility] Result panel 349 (unknown) (no date) (unknown) [facility] (no value) [facility] Result panel 350 (unknown) (no date) (unknown) [facility] (no value) [facility] Result panel 351 (unknown) (no date) (unknown) [facility] (no value) [facility] Result panel 352 (unknown) (no date) (unknown) [facility] (no value) [facility] Result panel 353 (unknown) (no date) (unknown) [facility] (no value) [facility] Result panel 354 (unknown) (no date) (unknown) [facility] (no value) [facility] Result panel 355 (unknown) (no date) (unknown) [facility] (no value) [facility] Result panel 356 (unknown) (no date) (unknown) [facility] (no value) [facility] Result panel 357 (unknown) (no date) (unknown) [facility] (no value) [facility] Result panel 358 (unknown) (no date) (unknown) [facility] (no value) [facility] Result panel 359 (unknown) (no date) (unknown) [facility] (no value) [facility] Result panel 360 (unknown) (no date) (unknown) [facility] (no value) [facility] Result panel 361 (unknown) (no date) (unknown) [facility] (no value) [facility] Result panel 362 (unknown) (no date) (unknown) [facility] (no value) [facility] Result panel 363 (unknown) (no date) (unknown) [facility] (no value) [facility] Result panel 364 (unknown) (no date) (unknown) [facility] (no value) [facility] Result panel 365 (unknown) (no date) (unknown) [facility] (no value) [facility] Result panel 366 (unknown) (no date) (unknown) [facility] (no value) [facility] Result panel 367 (unknown) (no date) (unknown) [facility] (no value) [facility] Result panel 368 (unknown) (no date) (unknown) [facility] (no value) [facility] Result panel 369 (unknown) (no date) (unknown) [facility] (no value) [facility] Result panel 370 (unknown) (no date) (unknown) [facility] (no value) [facility] Result panel 371 (unknown) (no date) (unknown) [facility] (no value) [facility] Result panel 372 (unknown) (no date) (unknown) [facility] (no value) [facility] Result panel 373 (unknown) (no date) (unknown) [facility] (no value) [facility] Result panel 374 (unknown) (no date) (unknown) [facility] (no value) [facility] Result panel 375 (unknown) (no date) (unknown) [facility] (no value) [facility] Result panel 376 (unknown) (no date) (unknown) [facility] (no value) [facility] Result panel 377 (unknown) (no date) (unknown) [facility] (no value) [facility] Result panel 378 (unknown) (no date) (unknown) [facility] (no value) [facility] Result panel 379 (unknown) (no date) (unknown) [facility] (no value) [facility] Result panel 380 (unknown) (no date) (unknown) [facility] (no value) [facility] Result panel 381 (unknown) (no date) (unknown) [facility] (no value) [facility] Result panel 382 (unknown) (no date) (unknown) [facility] (no value) [facility] Result panel 383 (unknown) (no date) (unknown) [facility] (no value) [facility] Result panel 384 (unknown) (no date) (unknown) [facility] (no value) [facility] Result panel 385 (unknown) (no date) (unknown) [facility] (no value) [facility] Result panel 386 (unknown) (no date) (unknown) [facility] (no value) [facility] Result panel 387 (unknown) (no date) (unknown) [facility] (no value) [facility] Result panel 388 (unknown) (no date) (unknown) [facility] (no value) [facility] Result panel 389 (unknown) (no date) (unknown) [facility] (no value) [facility] Result panel 390 (unknown) (no date) (unknown) [facility] (no value) [facility] Result panel 391 (unknown) (no date) (unknown) [facility] (no value) [facility] Result panel 392 (unknown) (no date) (unknown) [facility] (no value) [facility] Result panel 393 (unknown) (no date) (unknown) [facility] (no value) [facility] Result panel 394 (unknown) (no date) (unknown) [facility] (no value) [facility] Result panel 395 (unknown) (no date) (unknown) [facility] (no value) [facility] Result panel 396 (unknown) (no date) (unknown) [facility] (no value) [facility] Result panel 397 (unknown) (no date) (unknown) [facility] (no value) [facility] Result panel 398 (unknown) (no date) (unknown) [facility] (no value) [facility] Result panel 399 (unknown) (no date) (unknown) [facility] (no value) [facility] Result panel 400 (unknown) (no date) (unknown) [facility] (no value) [facility] Result panel 401 (unknown) (no date) (unknown) [facility] (no value) [facility] Result panel 402 (unknown) (no date) (unknown) [facility] (no value) [facility] Result panel 403 (unknown) (no date) (unknown) [facility] (no value) [facility] Result panel 404 (unknown) (no date) (unknown) [facility] (no value) [facility] Result panel 405 (unknown) (no date) (unknown) [facility] (no value) [facility] Result panel 406 (unknown) (no date) (unknown) [facility] (no value) [facility] Result panel 407 (unknown) (no date) (unknown) [facility] (no value) [facility] Result panel 408 (unknown) (no date) (unknown) [facility] (no value) [facility] Result panel 409 (unknown) (no date) (unknown) [facility] (no value) [facility] Result panel 410 (unknown) (no date) (unknown) [facility] (no value) [facility] Result panel 411 (unknown) (no date) (unknown) [facility] (no value) [facility] Result panel 412 (unknown) (no date) (unknown) [facility] (no value) [facility] Result panel 413 (unknown) (no date) (unknown) [facility] (no value) [facility] Result panel 414 (unknown) (no date) (unknown) [facility] (no value) [facility] Result panel 415 (unknown) (no date) (unknown) [facility] (no value) [facility] Result panel 416 (unknown) (no date) (unknown) [facility] (no value) [facility] Result panel 417 (unknown) (no date) (unknown) [facility] (no value) [facility] Result panel 418 (unknown) (no date) (unknown) [facility] (no value) [facility] Result panel 419 (unknown) (no date) (unknown) [facility] (no value) [facility] Result panel 420 (unknown) (no date) (unknown) [facility] (no value) [facility] Result panel 421 (unknown) (no date) (unknown) [facility] (no value) [facility] Result panel 422 (unknown) (no date) (unknown) [facility] (no value) [facility] Result panel 423 (unknown) (no date) (unknown) [facility] (no value) [facility] Result panel 424 (unknown) (no date) (unknown) [facility] (no value) [facility] Result panel 425 (unknown) (no date) (unknown) [facility] (no value) [facility] Result panel 426 (unknown) (no date) (unknown) [facility] (no value) [facility] Result panel 427 (unknown) (no date) (unknown) [facility] (no value) [facility] Result panel 428 (unknown) (no date) (unknown) [facility] (no value) [facility] Result panel 429 (unknown) (no date) (unknown) [facility] (no value) [facility] Result panel 430 (unknown) (no date) (unknown) [facility] (no value) [facility] Result panel 431 (unknown) (no date) (unknown) [facility] (no value) [facility] Result panel 432 (unknown) (no date) (unknown) [facility] (no value) [facility] Result panel 433 (unknown) (no date) (unknown) [facility] (no value) [facility] Result panel 434 (unknown) (no date) (unknown) [facility] (no value) [facility] Result panel 435 (unknown) (no date) (unknown) [facility] (no value) [facility] Result panel 436 (unknown) (no date) (unknown) [facility] (no value) [facility] Result panel 437 (unknown) (no date) (unknown) [facility] (no value) [facility] Result panel 438 (unknown) (no date) (unknown) [facility] (no value) [facility] Result panel 439 (unknown) (no date) (unknown) [facility] (no value) [facility] Result panel 440 (unknown) (no date) (unknown) [facility] (no value) [facility] Result panel 441 (unknown) (no date) (unknown) [facility] (no value) [facility] Result panel 442 (unknown) (no date) (unknown) [facility] (no value) [facility] Result panel 443 (unknown) (no date) (unknown) [facility] (no value) [facility] Result panel 444 (unknown) (no date) (unknown) [facility] (no value) [facility] Result panel 445 (unknown) (no date) (unknown) [facility] (no value) [facility] Result panel 446 (unknown) (no date) (unknown) [facility] (no value) [facility] Result panel 447 (unknown) (no date) (unknown) [facility] (no value) [facility] Result panel 448 (unknown) (no date) (unknown) Walk-In (no value) [facility] Result panel 449 (unknown) (no date) (unknown) Walk-In (no value) [facility] Result panel 450 (unknown) (no date) (unknown) Walk-In (no value) [facility] Result panel 451 (unknown) (no date) (unknown) Walk-In (no value) [facility] Result panel 452 (unknown) (no date) (unknown) [facility]-In (no value) [facility] Result panel 453 (unknown) (no date) (unknown) Walk-In (no value) [facility] Result panel 454 (unknown) (no date) (unknown) [facility]-In (no value) [facility] Result panel 455 (unknown) (no date) (unknown) Walk-In (no value) [facility] Result panel 456 (unknown) (no date) (unknown) [facility]-In (no value) [facility] Result panel 457 (unknown) (no date) (unknown) Walk-In (no value) [facility] Result panel 458 (unknown) (no date) (unknown) Walk-In (no value) [facility] Result panel 459 (unknown) (no date) (unknown) [facility]-In (no value) [facility] Result panel 460 (unknown) (no date) (unknown) [facility]-In (no value) [facility] Result panel 461 (unknown) (no date) (unknown) [facility] (no value) [facility] Result panel 462 (unknown) (no date) (unknown) [facility]-In (no value) [facility] Result panel 463 (unknown) (no date) (unknown) [facility]-In (no value) [facility] Result panel 464 (unknown) (no date) (unknown) [facility]-In (no value) [facility] Result panel 465 (unknown) (no date) (unknown) [facility]-In (no value) [facility] Result panel 466 (unknown) (no date) (unknown) Walk-[facility] (no value) [facility] Result panel 467 (unknown) (no date) (unknown) [facility]-In (no value) [facility] Result panel 468 (unknown) (no date) (unknown) Walk-In (no value) [facility] Result panel 469 (unknown) (no date) (unknown) Walk-In (no value) [facility] Result panel 470 (unknown) (no date) (unknown) Walk-In (no value) [facility] Result panel 471 (unknown) (no date) (unknown) Walk-In (no value) [facility] Result panel 472 (unknown) (no date) (unknown) [facility]-In (no value) [facility] Result panel 473 (unknown) (no date) (unknown) [facility]-In (no value) [facility] Result panel 474 (unknown) (no date) (unknown) [facility] (no value) [facility] Result panel 475 (unknown) (no date) (unknown) [facility] (no value) [facility] Result panel 476 (unknown) (no date) (unknown) [facility]-In (no value) [facility] Result panel 477 (unknown) (no date) (unknown) [facility] (no value) [facility] Result panel 478 (unknown) (no date) (unknown) Walk-In (no value) [facility] Result panel 479 (unknown) (no date) (unknown) [facility]-In (no value) [facility] Result panel 480 (unknown) (no date) (unknown) Walk-In (no value) [facility] Result panel 481 (unknown) (no date) (unknown) Walk-In (no value) [facility] Result panel 482 (unknown) (no date) (unknown) Walk-In (no value) [facility] Result panel 483 (unknown) (no date) (unknown) Walk-In (no value) [facility] Result panel 484 (unknown) (no date) (unknown) [facility]-In (no value) [facility] Result panel 485 (unknown) (no date) (unknown) [facility] (no value) [facility] Result panel 486 (unknown) (no date) (unknown) [facility]-In (no value) [facility] Result panel 487 (unknown) (no date) (unknown) Walk-In (no value) [facility] Result panel 488 (unknown) (no date) (unknown) [facility] (no value) [facility] Result panel 489 (unknown) (no date) (unknown) Walk-[facility] (no value) [facility] Result panel 490 (unknown) (no date) (unknown) [facility] (no value) [facility] Result panel 491 (unknown) (no date) (unknown) Walk-In (no value) [facility] Result panel 492 (unknown) (no date) (unknown) [facility] (no value) [facility] Result panel 493 (unknown) (no date) (unknown) [facility] (no value) [facility] Result panel 494 (unknown) (no date) (unknown) [facility] (no value) [facility] Result panel 495 (unknown) (no date) (unknown) Walk-[facility] (no value) [facility] Result panel 496 (unknown) (no date) (unknown) Walk-In (no value) [facility] Result panel 497 (unknown) (no date) (unknown) Walk-In (no value) [facility] Result panel 498 (unknown) (no date) (unknown) Walk-In (no value) [facility] Result panel 499 (unknown) (no date) (unknown) Walk-[facility] (no value) [facility] Result panel 500 (unknown) (no date) (unknown) Walk-In (no value) [facility] Result panel 501 (unknown) (no date) (unknown) [facility] (no value) [facility] Result panel 502 (unknown) (no date) (unknown) Walk-[facility] (no value) [facility] Result panel 503 (unknown) (no date) (unknown) [facility] (no value) [facility] Result panel 504 (unknown) (no date) (unknown) [facility] (no value) [facility] Result panel 505 (unknown) (no date) (unknown) [facility] (no value) [facility] Result panel 506 (unknown) (no date) (unknown) [facility] (no value) [facility] Result panel 507 (unknown) (no date) (unknown) [facility] (no value) [facility] Result panel 508 (unknown) (no date) (unknown) [facility] (no value) [facility] Result panel 509 (unknown) (no date) (unknown) [facility] (no value) [facility] Result panel 510 (unknown) (no date) (unknown) [facility] (no value) [facility] Result panel 511 (unknown) (no date) (unknown) [facility]-In (no value) [facility] Result panel 512 (unknown) (no date) (unknown) [facility] (no value) [facility] Result panel 513 (unknown) (no date) (unknown) [facility] (no value) [facility] Result panel 514 (unknown) (no date) (unknown) [facility] (no value) [facility] Result panel 515 (unknown) (no date) (unknown) [facility] (no value) [facility] Result panel 516 (unknown) (no date) (unknown) [facility] (no value) [facility] Result panel 517 (unknown) (no date) (unknown) [facility] (no value) [facility] Result panel 518 (unknown) (no date) (unknown) [facility] (no value) [facility] Result panel 519 (unknown) (no date) (unknown) [facility] (no value) [facility] Result panel 520 (unknown) (no date) (unknown) [facility] (no value) [facility] Result panel 521 (unknown) (no date) (unknown) [facility] (no value) [facility] Result panel 522 (unknown) (no date) (unknown) [facility] (no value) [facility] Result panel 523 (unknown) (no date) (unknown) [facility] (no value) [facility] Result panel 524 (unknown) (no date) (unknown) [facility] (no value) [facility] Result panel 525 (unknown) (no date) (unknown) [facility]-In (no value) [facility] Result panel 526 (unknown) (no date) (unknown) [facility] (no value) [facility] Result panel 527 (unknown) (no date) (unknown) [facility] (no value) [facility] Result panel 528 (unknown) (no date) (unknown) [facility] (no value) [facility] Result panel 529 (unknown) (no date) (unknown) Walk-[facility] (no value) [facility] Result panel 530 (unknown) (no date) (unknown) Walk-[facility] (no value) [facility] Result panel 531 (unknown) (no date) (unknown) [facility] (no value) [facility] Result panel 532 (unknown) (no date) (unknown) [facility] (no value) [facility] Result panel 533 (unknown) (no date) (unknown) [facility] (no value) [facility] Result panel 534 (unknown) (no date) (unknown) [facility] (no value) [facility] Result panel 535 (unknown) (no date) (unknown) [facility] (no value) [facility] Result panel 536 (unknown) (no date) (unknown) [facility] (no value) [facility] Result panel 537 (unknown) (no date) (unknown) [facility] (no value) [facility] Result panel 538 (unknown) (no date) (unknown) Walk-[facility] (no value) [facility] Result panel 539 (unknown) (no date) (unknown) [facility] (no value) [facility] Result panel 540 (unknown) (no date) (unknown) Walk-[facility] (no value) [facility] Result panel 541 (unknown) (no date) (unknown) [facility] (no value) [facility] Result panel 542 (unknown) (no date) (unknown) [facility] (no value) [facility] Result panel 543 (unknown) (no date) (unknown) [facility] (no value) [facility] Result panel 544 (unknown) (no date) (unknown) [facility] (no value) [facility] Result panel 545 (unknown) (no date) (unknown) [facility] (no value) [facility] Result panel 546 (unknown) (no date) (unknown) [facility] (no value) [facility] Result panel 547 (unknown) (no date) (unknown) [facility] (no value) [facility] Result panel 548 (unknown) (no date) (unknown) [facility] (no value) [facility] Result panel 549 (unknown) (no date) (unknown) [facility] (no value) [facility] Result panel 550 (unknown) (no date) (unknown) [facility] (no value) [facility] Result panel 551 (unknown) (no date) (unknown) [facility] (no value) [facility] Result panel 552 (unknown) (no date) (unknown) [facility] (no value) [facility] Result panel 553 (unknown) (no date) (unknown) [facility] (no value) [facility] Result panel 554 (unknown) (no date) (unknown) [facility] (no value) [facility] Result panel 555 (unknown) (no date) (unknown) [facility] (no value) [facility] Result panel 556 (unknown) (no date) (unknown) [facility] (no value) [facility] Result panel 557 (unknown) (no date) (unknown) [facility] (no value) [facility] Result panel 558 (unknown) (no date) (unknown) [facility] (no value) [facility] Result panel 559 (unknown) (no date) (unknown) [facility] (no value) [facility] Result panel 560 (unknown) (no date) (unknown) Walk-[facility] (no value) [facility] Result panel 561 (unknown) (no date) (unknown) [facility] (no value) [facility] Result panel 562 (unknown) (no date) (unknown) [facility] (no value) [facility] Result panel 563 (unknown) (no date) (unknown) [facility] (no value) [facility] Result panel 564 (unknown) (no date) (unknown) [facility] (no value) [facility] Result panel 565 (unknown) (no date) (unknown) [facility] (no value) [facility] Result panel 566 (unknown) (no date) (unknown) [facility] (no value) [facility] Result panel 567 (unknown) (no date) (unknown) [facility] (no value) [facility] Result panel 568 (unknown) (no date) (unknown) [facility] (no value) [facility] Result panel 569 (unknown) (no date) (unknown) [facility] (no value) [facility] Result panel 570 (unknown) (no date) (unknown) [facility] (no value) [facility] Result panel 571 (unknown) (no date) (unknown) [facility] (no value) [facility] Result panel 572 (unknown) (no date) (unknown) [facility] (no value) [facility] Result panel 573 (unknown) (no date) (unknown) [facility] (no value) [facility] Result panel 574 (unknown) (no date) (unknown) [facility] (no value) [facility] Result panel 575 (unknown) (no date) (unknown) [facility] (no value) [facility] Result panel 576 (unknown) (no date) (unknown) [facility] (no value) [facility] Result panel 577 (unknown) (no date) (unknown) [facility] (no value) [facility] Result panel 578 (unknown) (no date) (unknown) [facility] (no value) [facility] Result panel 579 (unknown) (no date) (unknown) [facility] (no value) [facility] Result panel 580 (unknown) (no date) (unknown) [facility] (no value) [facility] Result panel 581 (unknown) (no date) (unknown) [facility] (no value) [facility] Result panel 582 (unknown) (no date) (unknown) [facility] (no value) [facility] Result panel 583 (unknown) (no date) (unknown) [facility] (no value) [facility] Result panel 584 (unknown) (no date) (unknown) [facility] (no value) [facility] Result panel 585 (unknown) (no date) (unknown) [facility] (no value) [facility] Result panel 586 (unknown) (no date) (unknown) [facility] (no value) [facility] Result panel 587 (unknown) (no date) (unknown) [facility] (no value) [facility] Result panel 588 (unknown) (no date) (unknown) [facility] (no value) [facility] Result panel 589 (unknown) (no date) (unknown) [facility] (no value) [facility] Result panel 590 (unknown) (no date) (unknown) [facility] (no value) [facility] Result panel 591 (unknown) (no date) (unknown) [facility] (no value) [facility] Result panel 592 (unknown) (no date) (unknown) [facility] (no value) [facility] Result panel 593 (unknown) (no date) (unknown) [facility] (no value) [facility] Result panel 594 (unknown) (no date) (unknown) [facility] (no value) [facility] Result panel 595 (unknown) (no date) (unknown) [facility] (no value) [facility] Result panel 596 (unknown) (no date) (unknown) [facility] (no value) [facility] Result panel 597 (unknown) (no date) (unknown) [facility] (no value) [facility] Result panel 598 (unknown) (no date) (unknown) [facility] (no value) [facility] Result panel 599 (unknown) (no date) (unknown) [facility] (no value) [facility] Result panel 600 (unknown) (no date) (unknown) [facility] (no value) [facility] Result panel 601 (unknown) (no date) (unknown) [facility] (no value) [facility] Result panel 602 (unknown) (no date) (unknown) [facility] (no value) [facility] Result panel 603 (unknown) (no date) (unknown) [facility] (no value) [facility] Result panel 604 (unknown) (no date) (unknown) [facility] (no value) [facility] Result panel 605 (unknown) (no date) (unknown) [facility] (no value) [facility] Result panel 606 (unknown) (no date) (unknown) [facility] (no value) [facility] Result panel 607 (unknown) (no date) (unknown) [facility] (no value) [facility] Result panel 608 (unknown) (no date) (unknown) [facility] (no value) [facility] Result panel 609 (unknown) (no date) (unknown) Walk-In (no value) [facility] Result panel 610 (unknown) (no date) (unknown) Walk-[facility] (no value) [facility] Result panel 611 (unknown) (no date) (unknown) Walk-In (no value) [facility] Result panel 612 (unknown) (no date) (unknown) Walk-In (no value) ([facility] Result panel 613 (unknown) (no date) (unknown) Walk-In (no value) [facility] Result panel 614 (unknown) (no date) (unknown) Walk-In (no value) [facility] Result panel 615 (unknown) (no date) (unknown) [facility] (no value[facility] Result panel 616 (unknown) (no date) (unknown) [facility] (no value) [facility] Result panel 617 (unknown) (no date) (unknown) [facility] (no value) [facility] Result panel 618 (unknown) (no date) (unknown) [facility] (no value) [facility] Result panel 619 (unknown) (no date) (unknown) [facility] (no value) [facility] Result panel 620 (unknown) (no date) (unknown) [facility] (no value) [facility] Result panel 621 (unknown) (no date) (unknown) [facility] (no value) [facility] Result panel 622 (unknown) (no date) (unknown) [facility] (no value) [facility] Result panel 623 (unknown) (no date) (unknown) [facility] (no value) [facility] Result panel 624 (unknown) (no date) (unknown) [facility] (no value) [facility] Result panel 625 (unknown) (no date) (unknown) [facility] (no value) [facility] Result panel 626 (unknown) (no date) (unknown) [facility] (no value) [facility] Result panel 627 (unknown) (no date) (unknown) [facility] (no value) [facility] Result panel 628 (unknown) (no date) (unknown) [facility] (no value) [facility] Result panel 629 (unknown) (no date) (unknown) [facility] (no value) [facility] Result panel 630 (unknown) (no date) (unknown) [facility] (no value) [facility] Result panel 631 (unknown) (no date) (unknown) [facility] (no value) [facility] Result panel 632 (unknown) (no date) (unknown) [facility] (no value) [facility] Result panel 633 (unknown) (no date) (unknown) [facility] (no value) [facility] Result panel 634 (unknown) (no date) (unknown) [facility] (no value) [facility] Result panel 635 (unknown) (no date) (unknown) [facility] (no value) [facility] Result panel 636 (unknown) (no date) (unknown) [facility] (no value) [facility] Result panel 637 (unknown) (no date) (unknown) [facility] (no value) [facility] Result panel 638 (unknown) (no date) (unknown) [facility] (no value) [facility] Result panel 639 (unknown) (no date) (unknown) [facility] (no value) [facility] Result panel 640 (unknown) (no date) (unknown) [facility] (no value) [facility] Result panel 641 (unknown) (no date) (unknown) [facility] (no value) [facility] Result panel 642 (unknown) (no date) (unknown) [facility] (no value) [facility] Result panel 643 (unknown) (no date) (unknown) [facility] (no value) [facility] Result panel 644 (unknown) (no date) (unknown) [facility] (no value) [facility] Result panel 645 (unknown) (no date) (unknown) [facility] (no value) [facility] Result panel 646 (unknown) (no date) (unknown) [facility] (no value) [facility] Result panel 647 (unknown) (no date) (unknown) [facility] (no value) [facility] Result panel 648 (unknown) (no date) (unknown) [facility] (no value) [facility] Result panel 649 (unknown) (no date) (unknown) [facility] (no value) [facility] Result panel 650 (unknown) (no date) (unknown) [facility] (no value) [facility] Result panel 651 (unknown) (no date) (unknown) [facility] (no value) [facility] Result panel 652 (unknown) (no date) (unknown) [facility] (no value) [facility] Result panel 653 (unknown) (no date) (unknown) [facility] (no value) [facility] Result panel 654 (unknown) (no date) (unknown) [facility] (no value) [facility] Result panel 655 (unknown) (no date) (unknown) [facility] (no value) [facility] Result panel 656 (unknown) (no date) (unknown) [facility] (no value) [facility] Result panel 657 (unknown) (no date) (unknown) [facility] (no value) [facility] Result panel 658 (unknown) (no date) (unknown) [facility] (no value) [facility] Result panel 659 (unknown) (no date) (unknown) [facility] (no value) [facility] Result panel 660 (unknown) (no date) (unknown) [facility] (no value) [facility] Result panel 661 (unknown) (no date) (unknown) [facility] (no value) [facility] Result panel 662 (unknown) (no date) (unknown) [facility] (no value) [facility] Result panel 663 (unknown) (no date) (unknown) [facility] (no value) [facility] Result panel 664 (unknown) (no date) (unknown) [facility] (no value) [facility] Result panel 665 (unknown) (no date) (unknown) [facility] (no value) [facility] Result panel 666 (unknown) (no date) (unknown) [facility] (no value) [facility] Result panel 667 (unknown) (no date) (unknown) [facility] (no value) [facility] Result panel 668 (unknown) (no date) (unknown) [facility] (no value) [facility] Result panel 669 (unknown) (no date) (unknown) [facility] (no value) [facility] Result panel 670 (unknown) (no date) (unknown) [facility] (no value) [facility] Result panel 671 (unknown) (no date) (unknown) [facility] (no value) [facility] Result panel 672 (unknown) (no date) (unknown) [facility] (no value) [facility] Result panel 673 (unknown) (no date) (unknown) [facility] (no value) [facility] Result panel 674 (unknown) (no date) (unknown) [facility] (no value) [facility] Result panel 675 (unknown) (no date) (unknown) [facility] (no value) [facility] Result panel 676 (unknown) (no date) (unknown) [facility] (no value) [facility] Result panel 677 (unknown) (no date) (unknown) [facility] (no value) [facility] Result panel 678 (unknown) (no date) (unknown) [facility] (no value) [facility] Result panel 679 (unknown) (no date) (unknown) [facility] (no value) [facility] Result panel 680 (unknown) (no date) (unknown) [facility] (no value) [facility] Result panel 681 (unknown) (no date) (unknown) [facility] (no value) [facility] Result panel 682 (unknown) (no date) (unknown) [facility] (no value) [facility] Result panel 683 (unknown) (no date) (unknown) [facility] (no value) [facility] Result panel 684 (unknown) (no date) (unknown) [facility] (no value) [facility] Result panel 685 (unknown) (no date) (unknown) [facility] (no value) [facility] Result panel 686 (unknown) (no date) (unknown) [facility] (no value) [facility] Result panel 687 (unknown) (no date) (unknown) [facility] (no value) [facility] Result panel 688 (unknown) (no date) (unknown) [facility] (no value) [facility] Result panel 689 (unknown) (no date) (unknown) [facility] (no value) [facility] Result panel 690 (unknown) (no date) (unknown) [facility] (no value) [facility] Result panel 691 (unknown) (no date) (unknown) [facility] (no value) [facility] Result panel 692 (unknown) (no date) (unknown) [facility] (no value) [facility] Result panel 693 (unknown) (no date) (unknown) [facility] (no value) [facility] Result panel 694 (unknown) (no date) (unknown) [facility] (no value) [facility] Result panel 695 (unknown) (no date) (unknown) [facility] (no value) [facility] Result panel 696 (unknown) (no date) (unknown) [facility] (no value) [facility] Result panel 697 (unknown) (no date) (unknown) [facility] (no value) [facility] Result panel 698 (unknown) (no date) (unknown) [facility] (no value) [facility] Result panel 699 (unknown) (no date) (unknown) [facility] (no value) [facility] Result panel 700 (unknown) (no date) (unknown) [facility] (no value) [facility] Result panel 701 (unknown) (no date) (unknown) [facility] (no value) [facility] Result panel 702 (unknown) (no date) (unknown) [facility] (no value) [facility] Result panel 703 (unknown) (no date) (unknown) [facility] (no value) [facility] Result panel 704 (unknown) (no date) (unknown) [facility] (no value) [facility] Result panel 705 (unknown) (no date) (unknown) [facility] (no value) [facility] Result panel 706 (unknown) (no date) (unknown) [facility] (no value) [facility] Result panel 707 (unknown) (no date) (unknown) [facility] (no value) [facility] Result panel 708 (unknown) (no date) (unknown) [facility] (no value) [facility] Result panel 709 (unknown) (no date) (unknown) [facility] (no value) [facility] Result panel 710 (unknown) (no date) (unknown) [facility] (no value) [facility] Result panel 711 (unknown) (no date) (unknown) [facility] (no value) [facility] Result panel 712 (unknown) (no date) (unknown) [facility] (no value) [facility] Result panel 713 (unknown) (no date) (unknown) [facility] (no value) [facility] Result panel 714 (unknown) (no date) (unknown) [facility] (no value) [facility] Result panel 715 (unknown) (no date) (unknown) [facility] (no value) [facility] Result panel 716 (unknown) (no date) (unknown) [facility] (no value) [facility] Result panel 717 (unknown) (no date) (unknown) [facility] (no value) [facility] Result panel 718 (unknown) (no date) (unknown) [facility] (no value) [facility] Result panel 719 (unknown) (no date) (unknown) [facility] (no value) [facility] Result panel 720 (unknown) (no date) (unknown) [facility] (no value) [facility] Result panel 721 (unknown) (no date) (unknown) [facility] (no value) [facility] Result panel 722 (unknown) (no date) (unknown) [facility] (no value) [facility] Result panel 723 (unknown) (no date) (unknown) [facility] (no value) [facility] Result panel 724 (unknown) (no date) (unknown) [facility] (no value) [facility] Result panel 725 (unknown) (no date) (unknown) [facility] (no value) [facility] Result panel 726 (unknown) (no date) (unknown) [facility] (no value) [facility] Result panel 727 (unknown) (no date) (unknown) [facility] (no value) [facility] Result panel 728 (unknown) (no date) (unknown) [facility] (no value) [facility] Result panel 729 (unknown) (no date) (unknown) [facility] (no value) [facility] Result panel 730 (unknown) (no date) (unknown) [facility] (no value) [facility] Result panel 731 (unknown) (no date) (unknown) [facility] (no value) [facility] Result panel 732 (unknown) (no date) (unknown) [facility] (no value) [facility] Result panel 733 (unknown) (no date) (unknown) [facility] (no value) [facility] Result panel 734 (unknown) (no date) (unknown) [facility] (no value) [facility] Result panel 735 (unknown) (no date) (unknown) [facility] (no value) [facility] Result panel 736 (unknown) (no date) (unknown) [facility] (no value) [facility] Result panel 737 (unknown) (no date) (unknown) [facility] (no value) [facility] Result panel 738 (unknown) (no date) (unknown) [facility] (no value) [facility] Result panel 739 (unknown) (no date) (unknown) [facility] (no value) [facility] Result panel 740 (unknown) (no date) (unknown) [facility] (no value) [facility] Result panel 741 (unknown) (no date) (unknown) [facility] (no value) [facility] Result panel 742 (unknown) (no date) (unknown) [facility] (no value) [facility] Result panel 743 (unknown) (no date) (unknown) [facility] (no value) [facility] Result panel 744 (unknown) (no date) (unknown) [facility] (no value) [facility] Result panel 745 (unknown) (no date) (unknown) [facility] (no value) [facility] Result panel 746 (unknown) (no date) (unknown) [facility] (no value) [facility] Result panel 747 (unknown) (no date) (unknown) [facility] (no value) [facility] Result panel 748 (unknown) (no date) (unknown) [facility] (no value) [facility] Result panel 749 (unknown) (no date) (unknown) [facility] (no value) [facility] Result panel 750 (unknown) (no date) (unknown) [facility] (no value) [facility] Result panel 751 (unknown) (no date) (unknown) [facility] (no value) [facility] Result panel 752 (unknown) (no date) (unknown) [facility] (no value) [facility] Result panel 753 (unknown) (no date) (unknown) [facility] (no value) [facility] Result panel 754 (unknown) (no date) (unknown) [facility] (no value) [facility] Result panel 755 (unknown) (no date) (unknown) [facility] (no value) [facility] Result panel 756 (unknown) (no date) (unknown) [facility] (no value) [facility] Result panel 757 (unknown) (no date) (unknown) [facility] (no value) [facility] Result panel 758 (unknown) (no date) (unknown) [facility] (no value) [facility] Result panel 759 (unknown) (no date) (unknown) [facility] (no value) [facility] Result panel 760 (unknown) (no date) (unknown) [facility] (no value) [facility] Result panel 761 (unknown) (no date) (unknown) [facility] (no value) [facility] Result panel 762 (unknown) (no date) (unknown) [facility] (no value) [facility] Result panel 763 (unknown) (no date) (unknown) [facility] (no value) [facility] Result panel 764 (unknown) (no date) (unknown) [facility] (no value) [facility] Result panel 765 (unknown) (no date) (unknown) [facility] (no value) [facility] Result panel 766 (unknown) (no date) (unknown) [facility] (no value) [facility] Result panel 767 (unknown) (no date) (unknown) [facility] (no value) [facility] Result panel 768 (unknown) (no date) (unknown) [facility] (no value) [facility] Result panel 769 (unknown) (no date) (unknown) [facility] (no value) [facility] Result panel 770 (unknown) (no date) (unknown) [facility] (no value) [facility] Result panel 771 (unknown) (no date) (unknown) [facility] (no value) [facility] Result panel 772 (unknown) (no date) (unknown) [facility] (no value) [facility] Result panel 773 (unknown) (no date) (unknown) [facility] (no value) [facility] Result panel 774 (unknown) (no date) (unknown) [facility] (no value) [facility] Result panel 775 (unknown) (no date) (unknown) [facility] (no value) [facility] Result panel 776 (unknown) (no date) (unknown) [facility] (no value) [facility] Result panel 777 (unknown) (no date) (unknown) [facility] (no value) [facility] Result panel 778 (unknown) (no date) (unknown) [facility] (no value) [facility] Result panel 779 (unknown) (no date) (unknown) [facility] (no value) [facility] Result panel 780 (unknown) (no date) (unknown) [facility] (no value) [facility] Result panel 781 (unknown) (no date) (unknown) [facility] (no value) [facility] unknown) [facility] Result panel 782 (unknown) (no date) (unknown) [facility] (no value) [facility]units [facility]own[facility] Primary [facility]) [facility] Result panel 783 (unknown) (no date) (unknown) [facility] (no value) [facility]units [facility]own[facility] Primary [facility]) [facility] Result panel 784 (unknown) (no date) (unknown) [facility] (no value) [facility]units [facility]own[facility] Primary [facility]) [facility] Result panel 785 (unknown) (no date) (unknown) [facility] (no value) [facility]units [facility]own[facility] Primary [facility]) [facility] Result panel 786 (unknown) (no date) (unknown) [facility] (no value) [facility]units [facility]own[facility] Primary [facility]) [facility] Result panel 787 (unknown) (no date) (unknown) [facility] (no value) [facility]units [facility]own[facility] Primary [facility]) [facility] Result panel 788 (unknown) (no date) (unknown) [facility] (no value) (units ([facility]own) [facility] Primary [facility]) [facility] Result panel 789 (unknown) (no date) (unknown) [facility] (no value) (units ([facility]own) [facility] Primary [facility]) [facility] Result panel 790 (unknown) (no date) (unknown) [facility] (no value) (units ([facility]own) [facility] Primary unknown) [facility] Result panel 791 (unknown) (no date) (unknown) [facility] (no value) (units ([facility]own) [facility] Primary unknown) [facility] Result panel 792 (unknown) (no date) (unknown) [facility] (no value) (units ([facility]own[facility] Primary [facility]) [facility] Result panel 793 (unknown) (no date) (unknown) [facility] (no value) [facility]units [facility] Primary [facility]) [facility] Result panel 794 (unknown) (no date) (unknown) Walk-[facility] (no value) (units ([facility]own) [facility] Primary [facility]) [facility] Result panel 795 (unknown) (no date) (unknown) [facility] (no value) (units ([facility]own) [facility] Primary [facility]) [facility] Result panel 796 (unknown) (no date) (unknown) [facility] (no value) (units ([facility]own) [facility] Primary [facility]) [facility] Result panel 797 (unknown) (no date) (unknown) [facility] (no value) (units ([facility] Primary [facility] Result panel 798 (unknown) (no date) (unknown) Walk-[facility] (no value) (units [facility]own) [facility] Primary [facility]) [facility] Result panel 799 (unknown) (no date) (unknown) [facility] (no value) [facility]units [facility] Primary [facility]) [facility] Result panel 800 (unknown) (no date) (unknown) Walk-[facility] (no value) [facility]units [facility] Primary [facility]) [facility] Result panel 801 (unknown) (no date) (unknown) [facility] (no value) (units ([facility]own) [facility] Primary unknown) [facility] Result panel 802 (unknown) (no date) (unknown) [facility] (no value) [facility]units [facility] Primary [facility]) [facility] Result panel 803 (unknown) (no date) (unknown) Walk-[facility] (no value) (units ([facility]) [facility] Primary [facility]) [facility] Result panel 804 (unknown) (no date) (unknown) [facility] (no value) (units ([facility] Primary [facility]) [facility] Result panel 805 (unknown) (no date) (unknown) [facility] (no value) (units ([facility] Primary [facility]) [facility] Result panel 806 (unknown) (no date) (unknown) [facility] (no value) [facility]units [facility] Result panel 807 (unknown) (no date) (unknown) Walk-[facility] (no value) (units ([facility] Primary [facility]) [facility] Result panel 808 (unknown) (no date) (unknown) [facility] (no value) (units ([facility] Primary [facility] Result panel 809 (unknown) (no date) (unknown) Walk-[facility] (no value) (units ([facility] Primary [facility]) [facility] Result panel 810 (unknown) (no date) (unknown) [facility] (no value) (units ([facility] Primary [facility]) [facility] Result panel 811 (unknown) (no date) (unknown) [facility] (no value) (units ([facility] Primary [facility] Result panel 812 (unknown) (no date) (unknown) [facility] (no value) [facility]units [facility] Primary [facility] Result panel 813 (unknown) (no date) (unknown) [facility] (no value) (units ([facility] Primary [facility] Result panel 814 (unknown) (no date) (unknown) Walk-[facility] (no value) [facility]units ([facility] Primary [facility] Result panel 815 (unknown) (no date) (unknown) Walk-[facility] (no value) (units [facility] Primary [facility] Result panel 816 (unknown) (no date) (unknown) Walk-[facility] (no value) (units ([facility] Primary [facility] Result panel 817 (unknown) (no date) (unknown) Walk-[facility] (no value) (units ([facility] Primary [facility] Result panel 818 (unknown) (no date) (unknown) [facility] (no value) [facility]units [facility] Primary [facility]) [facility] Result panel 819 (unknown) (no date) (unknown) [facility] (no value) [facility]units [facility] Primary unknown) [facility] Result panel 820 (unknown) (no date) (unknown) Walk-[facility] (no value) [facility]units ([facility] Primary [facility] Result panel 821 (unknown) (no date) (unknown) [facility] (no value) [facility]units [facility] Primary [facility] Result panel 822 (unknown) (no date) (unknown) Walk-[facility] (no value) (units ([facility] Primary unknown) [facility] Result panel 823 (unknown) (no date) (unknown) [facility] (no value) (units ([facility] Primary [facility] Result panel 824 (unknown) (no date) (unknown) [facility] (no value) (units ([facility] Primary [facility] Result panel 825 (unknown) (no date) (unknown) [facility] (no value) [facility]units [facility] Primary [facility] Result panel 826 (unknown) (no date) (unknown) Walk-[facility] (no value) [facility]units ([facility]own[facility] Primary [facility] Result panel 827 (unknown) (no date) (unknown) [facility] (no value) [facility]units ([facility]own[facility] Primary [facility] Result panel 828 (unknown) (no date) (unknown) Walk-[facility] (no value) (units ([facility]own[facility] Primary [facility] Result panel 829 (unknown) (no date) (unknown) Walk-[facility] (no value) (units ([facility]own[facility] Primary [facility]) [facility] Result panel 830 (unknown) (no date) (unknown) Walk-In (no value) (units ([facility]own[facility] Primary [facility] Result panel 831 (unknown) (no date) (unknown) [facility] (no value) [facility]units [facility]own[facility] Primary unknown[facility] Result panel 832 (unknown) (no date) (unknown) [facility] (no value) (units ([facility]own[facility] Primary [facility]) [facility] Result panel 833 (unknown) (no date) (unknown) Walk-[facility] (no value) [facility]units ([facility]own[facility] Primary [facility] Result panel 834 (unknown) (no date) (unknown) [facility] (no value) [facility]units [facility] Primary [facility] Result panel 835 (unknown) (no date) (unknown) Walk-[facility] (no value) (units ([facility]own[facility] Primary [facility] Result panel 836 (unknown) (no date) (unknown) Walk-[facility] (no value) (units ([facility]own[facility] Primary [facility] Result panel 837 (unknown) (no date) (unknown) Walk-[facility] (no value) (units ([facility]own[facility] Primary [facility] Result panel 838 (unknown) (no date) (unknown) [facility] (no value) [facility]units ([facility]own[facility] Primary unknown[facility] Result panel 839 (unknown) (no date) (unknown) Walk-[facility] (no value) [facility]units [facility]own[facility] Primary [facility] Result panel 840 (unknown) (no date) (unknown) [facility] (no value) [facility]units [facility]own[facility] Primary unknown[facility] Result panel 841 (unknown) (no date) (unknown) [facility] (no value) [facility]units [facility]own[facility] Primary unknown[facility] Result panel 842 (unknown) (no date) (unknown) [facility] (no value) [facility]units ([facility]own[facility] Primary [facility] Result panel 843 (unknown) (no date) (unknown) [facility] (no value) [facility]units [facility]own[facility] Primary [facility] Result panel 844 (unknown) (no date) (unknown) [facility] (no value) [facility]units [facility]own[facility] Primary [facility] Result panel 845 (unknown) (no date) (unknown) [facility] (no value) [facility]units [facility]own[facility] Primary [facility] Result panel 846 (unknown) (no date) (unknown) [facility] (no value) [facility]units [facility]own[facility] Primary [facility] Result panel 847 (unknown) (no date) (unknown) [facility] (no value) [facility]units ([facility] Primary [facility] Result panel 848 (unknown) (no date) (unknown) [facility] (no value) (units ([facility]own[facility] Primary [facility] Result panel 849 (unknown) (no date) (unknown) [facility] (no value) [facility]units ([facility]own[facility] Primary [facility] Result panel 850 (unknown) (no date) (unknown) [facility] (no value) (units ([facility]own[facility] Primary [facility] Result panel 851 (unknown) (no date) (unknown) [facility] (no value) (units ([facility]own[facility] Primary [facility] Result panel 852 (unknown) (no date) (unknown) [facility] (no value) (units ([facility]own[facility] Primary [facility] Result panel 853 (unknown) (no date) (unknown) [facility] (no value) [facility]units ([facility]own[facility] Primary [facility] Result panel 854 (unknown) (no date) (unknown) Walk-[facility] (no value) (units ([facility]own[facility] Primary [facility] Result panel 855 (unknown) (no date) (unknown) [facility] (no value) (units ([facility]own[facility] Primary [facility] Result panel 856 (unknown) (no date) (unknown) [facility] (no value) (units ([facility]own) [facility] Primary [facility] Result panel 857 (unknown) (no date) (unknown) [facility] (no value) (units ([facility]own[facility] Primary [facility]) [facility] Result panel 858 (unknown) (no date) (unknown) [facility] (no value) [facility]units ([facility]own[facility] Primary [facility] Result panel 859 (unknown) (no date) (unknown) [facility] (no value) (units ([facility]own[facility] Primary [facility] Result panel 860 (unknown) (no date) (unknown) Walk-[facility] (no value) (units ([facility]own[facility] Primary [facility] Result panel 861 (unknown) (no date) (unknown) [facility] (no value) (units ([facility]own[facility] Primary [facility] Result panel 862 (unknown) (no date) (unknown) [facility] (no value) (units ([facility] nown) [facility] Primary [facility] Result panel 863 (unknown) (no date) (unknown) [facility] (no value) (units ([facility]own[facility] Primary [facility] Result panel 864 (unknown) (no date) (unknown) [facility] (no value) (units ([facility]own) [facility] Primary [facility] Result panel 865 (unknown) (no date) (unknown) Walk-[facility] (no value) (units ([facility]own[facility] Primary [facility] Result panel 866 (unknown) (no date) (unknown) [facility] (no value) (units ([facility]own[facility] Primary [facility] Result panel 867 (unknown) (no date) (unknown) [facility] (no value) [facility]units ([facility]own[facility] Result panel 868 (unknown) (no date) (unknown) Walk-[facility] (no value) (units ([facility]own) [facility] Primary unknown) [facility] Result panel 869 (unknown) (no date) (unknown) Walk-[facility] (no value) (units ([facility]own[facility] Primary unknown[facility] Result panel 870 (unknown) (no date) (unknown) [facility] (no value) (units ([facility] nown) [facility] Primary unknown[facility] Result panel 871 (unknown) (no date) (unknown) Walk-[facility] (no value) (units ([facility]own[facility] Primary unknown[facility] Result panel 872 (unknown) (no date) (unknown) Walk-[facility] (no value) (units ([facility] nown[facility] Primary unknown[facility] Result panel 873 (unknown) (no date) (unknown) Walk-[facility] (no value) (units ([facility] nown[facility] Primary unknown[facility] Result panel 874 (unknown) (no date) (unknown) Walk-[facility] (no value) (units ([facility]own) [facility] Primary unknown[facility] Result panel 875 (unknown) (no date) (unknown) [facility] (no value) (units ([facility] nown) [facility] Primary unknown[facility] Result panel 876 (unknown) (no date) (unknown) Walk-[facility] (no value) (units ([facility] nown) [facility] Primary unknown[facility] Result panel 877 (unknown) (no date) (unknown) Walk-[facility] (no value) (units ([facility] nown) [facility] Primary unknown[facility] Result panel 878 (unknown) (no date) (unknown) Walk-[facility] (no value) (units ([facility] nown[facility] Primary unknown[facility] Result panel 879 (unknown) (no date) (unknown) [facility] (no value) (units ([facility]own[facility] Primary unknown[facility] Result panel 880 (unknown) (no date) (unknown) [facility] (no value) (units ([facility] nown[facility] Primary unknown[facility] Result panel 881 (unknown) (no date) (unknown) [facility] (no value) (units ([facility] nown) [facility] Primary unknown[facility] Result panel 882 (unknown) (no date) (unknown) Walk-[facility] (no value) (units ([facility] nown[facility] Primary unknown[facility] Result panel 883 (unknown) (no date) (unknown) [facility] (no value) (units ([facility] nown) [facility] Primary unknown[facility] Result panel 884 (unknown) (no date) (unknown) [facility] (no value) (units ([facility]own[facility] Primary unknown[facility] Result panel 885 (unknown) (no date) (unknown) [facility] (no value) (units ([facility]own[facility] Primary unknown[facility] Result panel 886 (unknown) (no date) (unknown) Walk-[facility] (no value) (units ([facility] nown[facility] Primary unknown[facility] Result panel 887 (unknown) (no date) (unknown) [facility] (no value) (units ([facility]own[facility] Primary unknown) [facility] Result panel 888 (unknown) (no date) (unknown) [facility] (no value) (units ([facility]own[facility] Primary unknown) [facility] Result panel 889 (unknown) (no date) (unknown) [facility] (no value) (units ([facility]own[facility] Primary unknown) [facility] Social History date description facility 2022-04-27 00:00 Never smoker [facility] Vital Signs date measurement value units 2022-04-27 00:00 BMI 39.60 kg/m2 2022-04-27 00:00 BP_diastolic 96 mmHg 2022-04-27 00:00 BP_systolic 142 mmHg 2022-04-27 00:00 heart_rate 100 /min 2022-04-27 00:00 height_metric 177.8 cm 2022-04-27 00:00 height_standard 70 in 2022-04-27 00:00 respiration_rate 18 /min 2022-04-27 00:00 temperature_metric 36.44 C 2022-04-27 00:00 temperature_standard 97.6 F 2022-04-27 00:00 weight_metric 124.74 kg 2022-04-27 00:00 weight_standard 275 lb
--- NOTE | 2022-05-29 13:55 | ED Physician Documentation ---
PD HPI HEADACHE - Stated complaint Stated Complaint: MIGRAINE,SOA - Chief complaint Chief Complaint: Neuro - History obtained from History obtained from: Patient, Other (goes by "[place]") - History of Present Illness Timing - onset: How many days ago (3-4) Timing - onset during: Light activity Timing - duration: Days (3-4) Timing - details: Gradual onset, Still present Worst headache ever?: No: Worst headache ever? (They state the headache is similar to other prior migraines. Difference being the sore throat and other viral type symptoms at this time.) Location: Global Quality: Throbbing, Aching Associated symptoms: Nausea, Vision changes (blurring right eye). No: Fever, Weakness, Numbness Improved by: Dark room. No: Meds Worsened by: Light, Noise Contributing factors: Recent illness (They have had sore throat and congestion with sinus pressure over the last 3 to 4 days.). No: Hypertension, Trauma Similar symptoms before: Diagnosis (They have had similar migraine type headaches in the past. Review of prior chart shows approximately every 1 to 2 months visits for similar.) Recently seen: Clinic (walk in 3 days ago, with negative COVID/Flu test done.) Review of Systems Constitutional: reports: Chills, Myalgias. denies: Fever Nose: reports: Rhinorrhea / runny nose, Congestion, Sinus pressure / pain Throat: reports: Sore throat Respiratory: denies: Cough GI: reports: Nausea. 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, Other : None HEENT: None Psych: Depression Musculoskeletal: None Derm: None - Past Surgical History Past Surgical History: No - Present Medications Home Medications: Ambulatory Orders Medication Instructions Recorded Confirmed Blood-Glucose Meter [Glucometer] 1 each ACHS #1 each 11/09/21 05/03/22 Insulin Aspart [NovoLOG] 5 unit SUBQ TIDWM 90 Days #90 11/09/21 05/03/22 Insulin Glargine [Lantus Solostar] 20 unit SQ QPM 90 Days #90 11/09/21 05/03/22 Lancets/Blood Glucose Strips [Pogo 1 each ACHS 90 Days #360 11/09/21 05/03/22 Automatic Test Cartridge] Hill, Disposable [Needle] 1 each 5XD 90 Days #450 11/09/21 05/03/22 Syring-Needl,Disp,Insul,0.3 ml 1 each 5XD 90 Days #1 11/09/21 05/03/22 [Insulin Syringe] traZODone [Desyrel] 0.5 tab PO HS #45 tablet 11/09/21 05/03/22 HYDROcod/ACETAM 5/325 [[place] 5/325] 1 - 2 ea PO Q6H PRN #10 tablet 01/18/22 05/03/22 SUMAtriptan [Imitrex] 25 mg PO BID PRN #10 tablet 02/21/22 05/03/22 HYDROcod/ACETAM 5/325 [[place] 5/325] 1 ea PO Q6H PRN #10 tablet 03/19/22 05/03/22 Meloxicam [Mobic] 7.5 mg PO BID 10 Days #20 tablet 03/19/22 05/03/22 Ondansetron Odt [Zofran] 4 mg TL Q6H PRN #10 tablet 03/19/22 05/03/22 Nitrofurantoin [Macrobid] 100 mg PO BID #10 cap 03/27/22 05/03/22 SUMAtriptan [Imitrex] 25 mg PO BID PRN #10 tablet 03/27/22 05/03/22 Nitrofurantoin [Macrobid] 100 mg PO BID #9 cap 05/03/22 Ibuprofen [Motrin] 600 mg PO TID PRN #25 tab 05/29/22 Promethazine [Phenergan] 25 mg PO Q6H PRN #10 tab 05/29/22 - Allergies Allergies/Adverse Reactions: Allergies Allergy/AdvReac Type Severity Reaction Status Date / Time No Known Drug Allergies Allergy Verified 05/29/22 12:46 - Social History Does the pt smoke?: No Smoking Status: Never smoker Does the pt drink ETOH?: No Does the pt have substance abuse?: No - Immunizations Immunizations are current?: Yes Immunizations: TDAP >10years/unknown - POLST Patient has POLST: No PD ED PE NORMAL - Vitals Vital signs reviewed: Yes - General General: Alert and oriented X 3, Well developed/nourished - HEENT HEENT: PERRL, EOMI. No: Pharynx benign (mild redness and swelling tonsillar, without deviation nor peritonsillar edema. ) - Neck Neck: Supple, no meningeal sign, Other (anterior adenopathy, more to the right.) - Cardiac Cardiac: No murmur. No: RRR (irregular but rate controlled. ) - Respiratory Respiratory: Other (He does have tachypnea with work of breathing and is wanting to be in a upright sitting position.). No: Clear bilaterally (Diffuse expiratory wheezing as well as congested sounds and fine crackles diffusely bilateral. Prolonged expiratory phase and partial sentence dyspnea.) - Abdomen Abdomen: Soft, Non tender, Non distended - Derm Derm: Normal color, Warm and dry - Extremities Extremities: No tenderness to palpate, No edema - Neuro Neuro: Alert and oriented X 3, No motor deficit, Normal speech Results - Vitals Vitals: Vital Signs - 24 hr 05/29/22 05/29/22 05/29/22 12:42 14:41 15:38 Temperature 37.4 C Heart Rate 124 H 124 H 111 H Respiratory 16 18 18 Rate Blood Pressure 150/83 H 133/69 H 124/64 O2 Saturation 97 98 99 Oxygen O2 Source Room air - Labs Labs: Laboratory Tests 05/29/22 05/29/22 14:20 14:20 Nasal Adenovirus (PCR) DETECTED A Nasal B. parapertussis DNA (PCR) NOT DETECTED Nasal Coronavir 229E PCR NOT DETECTED Nasal Coronavir HKU1 PCR NOT DETECTED Nasal Coronavir NL63 PCR NOT DETECTED Nasal Coronavir OC43 PCR NOT DETECTED Nasal Enterovir/Rhinovir PCR NOT DETECTED Nasal Influenza B PCR NOT DETECTED Nasal Influenza A PCR NOT DETECTED Nasal Parainfluen 1 PCR NOT DETECTED Nasal Parainfluen 2 PCR NOT DETECTED Nasal Parainfluen 3 PCR DETECTED A Nasal Parainfluen 4 PCR NOT DETECTED Nasal RSV (PCR) NOT DETECTED Nasal B.pertussis DNA PCR NOT DETECTED Nasal C.pneumoniae (PCR) NOT DETECTED Rashawn Human Metapneumo PCR NOT DETECTED Nasal M.pneumoniae (PCR) NOT DETECTED Nasal SARS-CoV-2 (PCR) NOT DETECTED Group A Strep Rapid Negative PD Medical Decision Making - ED course Complexity details: re-evaluated patient (improved with SRINIVASAN mostly gone. ), considered differential (Sounds like the patient has a viral type illness with congestion and sore throat. This seems to have triggered a migraine. The patient does not have meningitic findings to suggest need for further testing or LP.), d/w patient Departure - Departure Disposition: 01 Home, Self Care Clinical Impression: Migraine headache Qualifiers: Migraine type: without aura Status migrainosus presence: without status migrainosus Intractability: not intractable Qualified Code(s): G43.009 - Migraine without aura, not intractable, without status migrainosus Upper respiratory infection Qualifiers: URI type: unspecified URI Qualified Code(s): J06.9 - Acute upper respiratory infection, unspecified Condition: Stable Record reviewed to determine appropriate education?: Yes Instructions: ED Upper Resp Infec No Abx Tx, ED Headache Migraine Follow-Up: Davina Ramos ARNP [Primary Care Provider] - Prescriptions: Ibuprofen [Motrin] 600 mg PO TID PRN #25 tab PRN Reason: Pain Promethazine [Phenergan] 25 mg PO Q6H PRN #10 tab PRN Reason: Nausea / Vomiting Comments: Your rapid strep test is negative. We will culture off that same swab and we will call you if there is any signs of bacterial infection that develops on the culture in the next couple of days. Otherwise your viral respiratory panel was positive for 2 simple viruses: Rhinovirus and parainfluenza virus. These typically give head cold type symptoms that last for 5 to 7 days. It does seem like this obviously triggered one of your migraines. I am glad you are feeling better at this point. Stay well-hydrated. Continue with ibuprofen 600 mg 3 times daily. Add Tylenol every 4-6 hours if needed. For nausea or for recurrent migraine, I use your typical migraine medicine and you could add in conjunction Phenergan antiemetic. I sent your prescription to pharmacy. Discharge Date/Time: 05/29/22 15:39
[2022-05-29] MEDS ORDERED: KETOROLAC 15 MG/ML VIAL IVP STA (14:15)
[2022-05-29] MEDS ORDERED: METOCLOPRAMIDE 10 MG/2 ML VIAL IVP STA (14:16)
[2022-05-29] MEDS ORDERED: diphenhydrAMINE INJ 50 MG/ML VIAL IVP STA (14:16)
[2022-05-29 14:36] LABS: RAPID STREP SCREEN Negative (Negative)
[2022-05-29 15:18] LABS: B. PARAPERTUSSIS- RESP PCR PAN NOT DETECTED; B. PERTUSSIS- RESP PCR PANEL NOT DETECTED; C. PNEUMONIAE- RESP PCR PANEL NOT DETECTED; CORONAVIRUS 229E-RESP PCR NOT DETECTED; CORONAVIRUS HKU1-RESP PCR NOT DETECTED; CORONAVIRUS NL63-RESP PCR NOT DETECTED; CORONAVIRUS OC43-RESP PCR NOT DETECTED; HUMAN METAPNEUMOVIRUS NOT DETECTED; INFLUENZA A- RESP PCR PANEL NOT DETECTED; INFLUENZA B - RESP PCR PANEL NOT DETECTED; M. PNEUMONIAE- RESP PCR PANEL NOT DETECTED; PARAINFLUENZA VIRUS 1 NOT DETECTED; PARAINFLUENZA VIRUS 2 NOT DETECTED; PARAINFLUENZA VIRUS 3 DETECTED; PARAINFLUENZA VIRUS 4 NOT DETECTED; RHINOVIRUS/ENTEROVIRUS NOT DETECTED; RSV- RESP PCR PANEL NOT DETECTED; SARS-CoV-2 -RESP PCR PANEL NOT DETECTED
[2022-05-29 15:38] VITALS: BP 124/64
--- NOTE | 2022-05-31 14:56 | ED Physician Documentation ---
ED Addendum - Addendum Addendum: 05/31/22 14:55 The patient's culture came back growing beta-hemolytic group G strep. We will notify the patient and prescribed penicillin 3 times daily for a week. They are not allergic to any antibiotics. Prescription is sent to [facility] pharmacy.
== END 2022-05-29 15:39 | disposition home or self-care (01) ==
LOC: ED 12:31
DX: G43.009 Migraine without aura, not intractable, without status migrainosus (principal); J02.0 Streptococcal pharyngitis; B95.4 Other streptococcus as the cause of diseases classified elsewhere; E11.9 Type 2 diabetes mellitus without complications; Z79.4 Long term (current) use of insulin; Z20.822 Contact with and (suspected) exposure to COVID-19
CPT/HCPCS: 36415; 87070; 87430; 87633; 96374; 96375; 99283; 99284; J1200; J2765

== ENCOUNTER 2022-05-30 21:03 | Emergency (ER) | payer MEDICAID ==
--- OUTSIDE RECORDS SUMMARY | 2022-05-30 21:20 | EXTERNAL MEDICAL SUMMARY RPT | Continuity of Care Document ---
:2000 Author Organization [facility] Address [address] [place] [address] Phone Care Team Providers Name Role Phone [...] Parminder 2022-04-28 00:00 atorvastatin [facility] Parminder 2022-05-02 00:00 [...] Prim [facility] [place] 2022-04-27 00:00 Elevated blood-pressure reading [facility] Primary Care & without diagnosis of [facility] Parminder 2022-04-27 00:00 Hemangioma Walk[facility]In [facility] [...] Primary Care & without diagnosis of hypertension [facility] zenia Services Parminder 2022-04-27 00:00 Right lower [...] Care & Ancillary Services Parminedr Result panel 148 (unknown) (no date) (unknown) [...] Care & Ancillary Services Parminder Result panel 176 (unknown) (no date) (unknown) [...] Care & Ancillary Services Parminder Result panel 184 (unknown) (no date) (unknown) [...] Care & Ancillary Services Parminder Result panel 350 (unknown) (no date) (unknown) [...] Care & Ancillary Services Parimnder Result panel 441 (unknown) (no date) (unknown) [...] Care [facility] Ancillary Services Parminder Result panel 589 (unknown) (no date) (unknown) [...] [facility] Anc[facility] Services Parminder Result panel 754 (unknown) (no date) (unknown) Walk-In (no value) (units (unk nown) Clinic Primary unknown) Care & Ancillary Services Parminder Result panel 755 (unknown) (no date) (unknown) Walk-In (no value) (units (unk nown) Clinic Primary unknown) Care & Ancillary Services Parmnider Result panel 756 (unknown) (no date) (unknown) [...] Care [facility] Ancillary Services Parminder Result panel 781 (unknown) (no date) (unknown) [...] Care & Ancillary Services Parminder Result panel 868 (unknown) (no date) (unknown) [...]
[2022-05-30] MEDS ORDERED: diphenhydrAMINE INJ 50 MG/ML VIAL IVP STA (21:31)
[2022-05-30] MEDS ORDERED: KETOROLAC 30 MG/ML VIAL IVP STA (21:31)
[2022-05-30] MEDS ORDERED: SODIUM CHLORIDE 0.9% 1,000 ML IV STA (21:31)
[2022-05-30] MEDS ORDERED: DROPERIDOL 5 MG/2 ML VIAL IVP STA (21:32)
[2022-05-30 21:51] LABS: BASOPHILS % (AUTO) 0.2 %; HCT - HEMATOCRIT 40.2 % (37.0-47.0); LYMPHOCYTES # (AUTO) 1.2 10^3/uL (1.5-3.5); LYMPHOCYTES % (AUTO) 11.8 %; MEAN CORPUSCULAR HEMOGLOBIN 25.7 pg (27.0-31.0); MEAN CORPUSCULAR HGB CONC 32.3 g/dL (32.0-36.0); MEAN CORPUSCULAR VOLUME 79.4 fL (81.0-99.0); MEAN PLATELET VOLUME 10.8 fL (7.9-10.8); MONOCYTES # (AUTO) 1.1 10^3/uL (0.0-1.0); MONOCYTES % (AUTO) 10.9 %; NEUTROPHILS % (AUTO) 76.8 %; PLT - PLATELET COUNT 327 10^3/uL (130-450); RED BLOOD COUNT 5.06 10^6/uL (4.20-5.40); RED CELL DISTRIBUTION WIDTH 13.4 % (12.0-15.0); WHITE BLOOD COUNT 10.4 x10^3/uL (4.8-10.8)
--- NOTE | 2022-05-30 21:51 | ED Physician Documentation ---
History of Present Illness - Stated complaint Stated Complaint: HEAD PX/SOA/UNABLE TO EAT - Chief complaint Chief Complaint: General - History obtained from History obtained from: Patient - History of Present Illness Timing: How many days ago (3) - Additonal information Additional information: Katie Zamora is a 21-year-old female who goes by the name of Jr. She has had an upper respiratory tract infection for the past several days and is developed a migraine headache with seen in the emergency department yesterday treated successfully for the migraine and returns today with persistent symptoms of headache and listlessness. She does indicate that she has not been able to drink and eat as much as she normally would and she has a history of type 2 diabetes. She is stating that she is barely getting out of bed to go to the bathroom. Review of Systems Constitutional: reports: Fever, Myalgias, Fatigue, Sweats Eyes: denies: Decreased vision Ears: denies: Ear pain Nose: reports: Rhinorrhea / runny nose, Congestion Throat: reports: Sore throat Cardiac: denies: Chest pain / pressure, Palpitations Respiratory: reports: Dyspnea, Cough, Wheezing GI: reports: Nausea. denies: Abdominal Pain, Abdominal Swelling, Vomiting, Constipation, Diarrhea : denies: Dysuria, Frequency Skin: denies: Rash Musculoskeletal: denies: Neck pain, Back pain, Extremity pain Neurologic: reports: Generalized weakness. 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, Other : None HEENT: None Psych: Depression Musculoskeletal: None Derm: None - Past Surgical History Past Surgical History: No - Present Medications Home Medications: Ambulatory Orders Medication Instructions Recorded Confirmed Blood-Glucose Meter [Glucometer] 1 each ACHS #1 each 11/09/21 05/03/22 Insulin Aspart [NovoLOG] 5 unit SUBQ TIDWM 90 Days #90 11/09/21 05/03/22 Insulin Glargine [Lantus Solostar] 20 unit SQ QPM 90 Days #90 11/09/21 05/03/22 Lancets/Blood Glucose Strips [Pogo 1 each ACHS 90 Days #360 11/09/21 05/03/22 Automatic Test Cartridge] [place], Disposable [Needle] 1 each 5XD 90 Days #450 11/09/21 05/03/22 Syring-Needl,Disp,Insul,0.3 ml 1 each MC 5XD 90 Days #1 11/09/21 05/03/22 [Insulin Syringe] traZODone [Desyrel] 0.5 tab PO HS #45 tablet 11/09/21 05/03/22 HYDROcod/ACETAM 5/325 [[place] 5/325] 1 - 2 ea PO Q6H PRN #10 tablet 01/18/22 05/03/22 SUMAtriptan [Imitrex] 25 mg PO BID PRN #10 tablet 02/21/22 05/03/22 HYDROcod/ACETAM 5/325 [[place] 5/325] 1 ea PO Q6H PRN #10 tablet 03/19/22 05/03/22 Meloxicam [Mobic] 7.5 mg PO BID 10 Days #20 tablet 03/19/22 05/03/22 Ondansetron Odt [Zofran] 4 mg TL Q6H PRN #10 tablet 03/19/22 05/03/22 Nitrofurantoin [Macrobid] 100 mg PO BID #10 cap 03/27/22 05/03/22 SUMAtriptan [Imitrex] 25 mg PO BID PRN #10 tablet 03/27/22 05/03/22 Nitrofurantoin [Macrobid] 100 mg PO BID #9 cap 05/03/22 Ibuprofen [Motrin] 600 mg PO TID PRN #25 tab 05/29/22 Promethazine [Phenergan] 25 mg PO Q6H PRN #10 tab 05/29/22 - Allergies Allergies/Adverse Reactions: Allergies Allergy/AdvReac Type Severity Reaction Status Date / Time No Known Drug Allergies Allergy Verified 05/30/22 21:07 - Social History Does the pt smoke?: No Smoking Status: Never smoker Does the pt drink ETOH?: No Does the pt have substance abuse?: No - Immunizations Immunizations are current?: Yes Immunizations: TDAP >10years/unknown - POLST Patient has POLST: No PD ED PE NORMAL - Vitals Vital signs reviewed: Yes (Tachycardic hypertensive and tachypneic) - General General: Alert and oriented X 3, Well developed/nourished, Other (21y/o hirsut female ) - HEENT HEENT: Atraumatic, PERRL, EOMI - Neck Neck: Supple, no meningeal sign, No bony TTP - Cardiac Cardiac: No murmur, Other (tachy to 110) - Respiratory Respiratory: No respiratory distress, Clear bilaterally, Other (breath sounds are diminished. 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, No motor deficit, No sensory deficit, Normal speech Eye Opening: Spontaneous Motor: Obeys Commands Verbal: Oriented GCS Score: 15 - Psych Psych: Normal mood, Normal affect Results - Vitals Vitals: Vital Signs - 24 hr 05/30/22 05/30/22 05/30/22 21:07 21:12 23:51 Temperature 37.7 C 36.9 C Heart Rate 138 H 117 H 100 Respiratory 24 27 H 21 Rate Blood Pressure 139/90 H 130/80 106/62 O2 Saturation 98 100 98 Oxygen O2 Source Room air - Labs Labs: Laboratory Tests 05/30/22 05/30/22 21:35 21:35 WBC 10.4 RBC 5.06 Hgb 13.0 Hct 40.2 MCV 79.4 L MCH 25.7 L MCHC 32.3 RDW 13.4 Plt Count 327 MPV 10.8 Neut # (Auto) 8.0 H Lymph # (Auto) 1.2 L [place] # (Auto) 1.1 H Eos # (Auto) 0.0 Baso # (Auto) 0.0 Absolute Nucleated RBC 0.00 Nucleated RBC % 0.0 Sodium 131 L Potassium 3.9 Chloride 98 L Carbon Dioxide 21 Anion Gap 12.0 BUN 11 Creatinine 0.5 Estimated GFR (MDRD) 157 Glucose 289 H Calcium 9.1 Total Bilirubin 0.6 AST 18 ALT 22 Alkaline Phosphatase 48 Total Protein 9.0 H Albumin 3.8 Globulin 5.2 H Albumin/Globulin Ratio 0.7 L Lipase 29 Procedures - IVC sono (time) 6204 Bedside IVC sono: IVC measures (cm) (0.83), IVC collapsed c insp (cm) (complete), Dehydration (est 2 liter) PD Medical Decision Making - ED course Complexity details: reviewed old records, reviewed results, re-evaluated patient, considered differential, d/w patient Reviewed Lab Results: I reviewed the patient's complete blood count and found a normal white blood cell count normal hemoglobin and hematocrit as well as platelets. Evaluation of the blood chemistries show an elevation of the blood glucose consistent with the patient's presentation of dehydration. Drug Therapy Requiring Monitoring for Toxicity: This 21-year-old female with a history of adenovirus and parainfluenza 3 would likely benefit significantly from the use of dexamethasone but because of her elevated blood sugar and dehydration we did not provide this to the patient as would likely cause her persistence or worsening of her symptoms she came in for ED course: 21-year-old female generally not feeling well was seen recently with adenovirus and Parainfluenza 3. The patient appears to be improving with the viral infection but feels quite poorly and she was found to be significantly dehydrated on interrogation the inferior vena cava with POCUS. We are able to provide intravenous saline with marked improvement. I refrained from using dexamethasone in this patient thinking that she may have a further increase in her blood sugar resulting in further dehydration. Departure - Departure Disposition: 01 Home, Self Care Clinical Impression: Hyperglycemia due to diabetes mellitus, Dehydration, Adenovirus positive by PCR, Infection due to parainfluenza virus 3 Migraine Qualifiers: Migraine type: without aura Status migrainosus presence: without status migrainosus Intractability: not intractable Qualified Code(s): G43.009 - Migraine without aura, not intractable, without status migrainosus Condition: Stable Instructions: ED Hyperglycemia Diabetic, ED Dehydration, ED URI Viral Follow-Up: Davina Ramos ARNP [Primary Care Provider] - Comments: Katie, today it looks like you have 2 viruses and your diabetes is out of control. You were significantly dehydrated and this is likely the reason your symptoms are as bad as they are. It is recommended you take some cough syrup to prevent coughing. Take Tylenol or Advil for aches and pains and increase your fluid intake substantially. Discharge Date/Time: 05/30/22 23:57
[2022-05-30 22:05] LABS: ALBUMIN 3.8 g/dL (3.2-5.5); ALBUMIN/GLOBULIN RATIO 0.7 (1.0-2.2); BILIRUBIN,TOTAL 0.6 mg/dL (0.2-1.0); CALCIUM 9.1 mg/dL (8.5-10.3); CREATININE 0.5 mg/dL (0.4-1.0); POTASSIUM 3.9 mmol/L (3.5-5.0)
[2022-05-30 23:52] VITALS: BP 106/62
== END 2022-05-30 23:57 | disposition home or self-care (01) ==
LOC: ED 21:03
DX: G43.009 Migraine without aura, not intractable, without status migrainosus (principal); E86.0 Dehydration; B34.0 Adenovirus infection, unspecified; B34.8 Other viral infections of unspecified site; E11.65 Type 2 diabetes mellitus with hyperglycemia; Z79.4 Long term (current) use of insulin
CPT/HCPCS: 36415; 80053; 83690; 85025; 96361; 96374; 99283; J1200

== ENCOUNTER 2023-07-29 09:38 | Outpatient (CLI) | payer MEDICAID ==
[2023-07-29 09:59] LABS: BASOPHILS % (AUTO) 0.3 %; EOSINOPHILS # (AUTO) 0.1 10^3/uL (0.0-0.7); EOSINOPHILS % (AUTO) 0.6 %; HCT - HEMATOCRIT 40.6 % (37.0-47.0); LYMPHOCYTES # (AUTO) 2.1 10^3/uL (1.5-3.5); LYMPHOCYTES % (AUTO) 24.3 %; MEAN CORPUSCULAR HEMOGLOBIN 26.2 pg (27.0-31.0); MEAN CORPUSCULAR VOLUME 81.9 fL (81.0-99.0); MEAN PLATELET VOLUME 10.9 fL (7.9-10.8); MONOCYTES # (AUTO) 0.5 10^3/uL (0.0-1.0); MONOCYTES % (AUTO) 5.9 %; NEUTROPHILS % (AUTO) 68.7 %; PLT - PLATELET COUNT 280 10^3/uL (130-450); RED BLOOD COUNT 4.96 10^6/uL (4.20-5.40); RED CELL DISTRIBUTION WIDTH 14.3 % (12.0-15.0); WHITE BLOOD COUNT 8.7 x10^3/uL (4.8-10.8)
[2023-07-29 10:11] LABS: ALKALINE PHOSPHATASE 65 IU/L (42-121); ALT ALANINE AMINOTRANSFERASE 34 IU/L (10-60); AST ASPARTATE AMINOTRANSFERASE 22 IU/L (10-42); BILIRUBIN,TOTAL 0.5 mg/dL (0.2-1.0); BUN - BLOOD UREA NITROGEN 12 mg/dL (6-20); CALCIUM 9.3 mg/dL (8.5-10.3); CARBON DIOXIDE - CO2 28 mmol/L (21-32); CHLORIDE 103 mmol/L (101-111); CHOL/HDL RATIO 3.7 (<4.4); CHOLESTEROL 145 mg/dL; CREATININE 0.5 mg/dL (0.6-1.3); GFR - MDRD 156 (>89); GLUCOSE 260 mg/dL (74-104); HDL CHOLESTEROL 39 mg/dL; LDL CHOLESTEROL,CALCULATED 89 mg/dL; LDL/HDL RATIO 2.3 (<4.4); SODIUM 136 mmol/L (135-145); TOTAL PROTEIN 7.9 g/dL (6.4-8.9); TRIGLYCERIDES 84 mg/dL (48-352); VLDL CHOLESTEROL 17 mg/dL
[2023-07-29 10:26] LABS: THYROID STIMULATING HORMONE 0.68 uIU/mL (0.34-5.60)
[2023-07-29 11:54] LABS: ESTIMATED AVERAGE GLUCOSE 283 mg/dL (70-100); HEMOGLOBIN A1c% 11.5 % (4.27-6.07)
== END 2023-07-29 09:39 | disposition home or self-care (01) ==
LOC: LAB 09:38
PROVIDERS: ATTEND Nurse Practitioner
DX: E78.5 Hyperlipidemia, unspecified (principal); R53.83 Other fatigue; E11.9 Type 2 diabetes mellitus without complications
CPT/HCPCS: 36415; 80053; 80061; 82043; 82570; 83036; 83721; 84443; 85025

== ENCOUNTER 2023-11-01 09:27 | Outpatient (CLI) | payer MEDICAID ==
[2023-11-01 10:19] LABS: CHOL/HDL RATIO 4.1 (<4.4); CHOLESTEROL 154 mg/dL; HDL CHOLESTEROL 38 mg/dL; LDL CHOLESTEROL,CALCULATED 94 mg/dL; LDL/HDL RATIO 2.5 (<4.4); TRIGLYCERIDES 108 mg/dL (48-352); VLDL CHOLESTEROL 22 mg/dL
[2023-11-01 10:42] LABS: VALPROIC ACID (DEPAKOTE) < 4.0 ug/mL
[2023-11-01 11:24] LABS: ESTIMATED AVERAGE GLUCOSE 263 mg/dL (70-100); HEMOGLOBIN A1c% 10.8 % (4.27-6.07)
[2023-11-01 22:22] LABS: CHLAMYDIA TRACHOMATIS DNA NEGATIVE (NEGATIVE); NEISSERIA GONORRHOEAE DNA NEGATIVE (NEGATIVE); TRICHOMONAS VAGINALIS DNA NEGATIVE (NEGATIVE)
[2023-11-02 02:08] LABS: HIV SCREEN 4TH GENERATION Non Reactive (Non Reactive)
[2023-11-02 05:12] LABS: RPR Non Reactive (Non Reactive)
[2023-11-02 06:12] LABS: HSV 1 IGG TYPE SPEC <0.91 index (0.00-0.90); HSV 2 IGG TYPE SPEC <0.91 index (0.00-0.90)
== END 2023-11-01 09:28 | disposition home or self-care (01) ==
LOC: LAB 09:27
PROVIDERS: ATTEND Physician Assistant Medical
DX: Z02.89 Encounter for other administrative examinations (principal); F31.81 Bipolar II disorder; Z20.2 Contact with and (suspected) exposure to infections with a predominantly sexual mode of transmission; Z13.220 Encounter for screening for lipoid disorders; E11.9 Type 2 diabetes mellitus without complications
CPT/HCPCS: 36415; 80061; 80164; 82043; 82570; 82607; 83036; 83721; 86592; 86695; 86696; 87389; 87491; 87591; 87661

== ENCOUNTER 2023-11-12 08:00 | Outpatient (CLI) | payer MEDICAID ==
[2023-11-12 20:49] LABS: CHLAMYDIA TRACHOMATIS DNA NEGATIVE (NEGATIVE); NEISSERIA GONORRHOEAE DNA NEGATIVE (NEGATIVE)
[2023-11-12 21:58] LABS: BACTERIAL VAGINOSIS DNA NEGATIVE (NEGATIVE); CANDIDA GLABRATA DNA POSITIVE (NEGATIVE); CANDIDA GROUP DNA POSITIVE (NEGATIVE); CANDIDA KRUSEI DNA NEGATIVE (NEGATIVE); TRICHOMONAS VAGINALIS DNA NEGATIVE (NEGATIVE)
== END 2023-11-12 23:59 | disposition home or self-care (01) ==
LOC: LAB.WC 08:00
PROVIDERS: ATTEND Obstetrics & Gynecology
DX: N76.0 Acute vaginitis (principal); Z20.2 Contact with and (suspected) exposure to infections with a predominantly sexual mode of transmission; Z12.4 Encounter for screening for malignant neoplasm of cervix
CPT/HCPCS: 81514; 87491; 87591; 87661

== ENCOUNTER 2023-12-16 10:05 | Outpatient (CLI) | payer MEDICAID ==
[2023-12-16 11:30] LABS: ESTIMATED AVERAGE GLUCOSE 217 mg/dL (70-100); HEMOGLOBIN A1c% 9.2 % (4.27-6.07)
== END 2023-12-16 10:06 | disposition home or self-care (01) ==
LOC: LAB 10:05
PROVIDERS: ATTEND Nurse Practitioner
DX: E11.9 Type 2 diabetes mellitus without complications (principal)
CPT/HCPCS: 36415; 83036

== ENCOUNTER 2024-01-15 08:00 | Outpatient (CLI) | payer MEDICAID ==
[2024-01-15 21:53] LABS: BACTERIAL VAGINOSIS DNA NEGATIVE (NEGATIVE); CANDIDA GLABRATA DNA NEGATIVE (NEGATIVE); CANDIDA GROUP DNA POSITIVE (NEGATIVE); CANDIDA KRUSEI DNA NEGATIVE (NEGATIVE); TRICHOMONAS VAGINALIS DNA NEGATIVE (NEGATIVE)
[2024-01-15 23:57] LABS: CHLAMYDIA TRACHOMATIS DNA NEGATIVE (NEGATIVE); NEISSERIA GONORRHOEAE DNA NEGATIVE (NEGATIVE)
== END 2024-01-15 23:59 | disposition home or self-care (01) ==
LOC: LAB 08:00
PROVIDERS: ATTEND Emergency Medicine
DX: N30.90 Cystitis, unspecified without hematuria (principal)
CPT/HCPCS: 81514; 87086; 87181; 87491; 87591; 87661

== ENCOUNTER 2024-02-19 13:04 | Emergency (ER) | payer MEDICAID ==
[2024-02-19 13:13] VITALS: BP 153/101; O2SAT 95
--- NOTE | 2024-02-19 13:20 | ED Physician Documentation ---
History of Present Illness - Stated complaint Stated Complaint: RT SIDE TOOTH PX - Chief complaint Chief Complaint: Heent - History obtained from History obtained from: Patient - Additonal information Additional information: 23-year-old woman with type 2 diabetes and no possibility of presents with several weeks of pain from a right maxillary molar. It has been about 4 to 5 years since she has seen a dentist and understands the need to. No fevers. No facial swelling. No trismus. 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, Other : None HEENT: None Psych: Depression, Anxiety Musculoskeletal: None Derm: None - Past Surgical History Past Surgical History: No - Present Medications Home Medications: Ambulatory Orders Medication Instructions Recorded Confirmed Blood-Glucose Meter [Glucometer] 1 each ACHS #1 each 11/09/21 05/03/22 Insulin Aspart [NovoLOG] 5 unit SUBQ TIDWM 90 Days #90 11/09/21 05/03/22 Insulin Glargine [Lantus Solostar] 20 unit SQ QPM 90 Days #90 11/09/21 05/03/22 Lancets/Blood Glucose Strips [Pogo 1 each ACHS 90 Days #360 11/09/21 05/03/22 Automatic Test Cartridge] [place], Disposable [Needle] 1 each 5XD 90 Days #450 11/09/21 05/03/22 Syring-Needl,Disp,Insul,0.3 ml 1 each 5XD 90 Days #1 11/09/21 05/03/22 [Insulin Syringe] traZODone [Desyrel] 0.5 tab PO HS #45 tablet 11/09/21 05/03/22 HYDROcod/ACETAM 5/325 [[place] 5/325] 1 - 2 ea PO Q6H PRN #10 tablet 01/18/22 05/03/22 SUMAtriptan [Imitrex] 25 mg PO BID PRN #10 tablet 02/21/22 05/03/22 HYDROcod/ACETAM 5/325 [[place] 5/325] 1 ea PO Q6H PRN #10 tablet 03/19/22 05/03/22 Meloxicam [Mobic] 7.5 mg PO BID 10 Days #20 tablet 03/19/22 05/03/22 Ondansetron Odt [Zofran] 4 mg TL Q6H PRN #10 tablet 03/19/22 05/03/22 Nitrofurantoin [Macrobid] 100 mg PO BID #10 cap 03/27/22 05/03/22 SUMAtriptan [Imitrex] 25 mg PO BID PRN #10 tablet 03/27/22 05/03/22 Nitrofurantoin [Macrobid] 100 mg PO BID #9 cap 05/03/22 Ibuprofen [Motrin] 600 mg PO TID PRN #25 tab 05/29/22 Promethazine [Phenergan] 25 mg PO Q6H PRN #10 tab 05/29/22 Penicillin V Potassium 500 mg PO Q6HR #28 tablet 05/31/22 Amox/Clav 875/125 [Augmentin] 1 each PO Q12H #20 tablet 02/19/24 Chlorhexidine [Peridex] 15 ml PO BID #300 ml 02/19/24 HYDROcod/ACETAM 5/325 [[place] 5/325] 1 - 2 tab PO Q6H PRN #15 tablet 02/19/24 - Allergies Allergies/Adverse Reactions: Allergies Allergy/AdvReac Type Severity Reaction Status Date / Time No Known Drug Allergies Allergy Verified 02/19/24 13:09 - Social History Does the pt smoke?: No Smoking Status: Never smoker Does the pt drink ETOH?: No Does the pt have substance abuse?: No - Immunizations Immunizations are current?: Yes Immunizations: TDAP >10years/unknown - POLST Patient has POLST: No PD ED PE NORMAL - Vitals Vital signs reviewed: Yes - General General: Alert and oriented X 3, No acute distress - HEENT HEENT: PERRL, EOMI, Other (Generally poor dentition with a lot of cavities, the culprit tooth is #1 with large cavity and tenderness but no trismus or facial swelling.) - Neuro Neuro: Alert and oriented X 3 Results - Vitals Vitals: Vital Signs - 24 hr 02/19/24 13:09 Temperature 35.8 C L Heart Rate 100 Respiratory 15 Rate Blood Pressure 153/101 H O2 Saturation 95 Oxygen O2 Source Room air Departure - Departure Disposition: 01 Home, Self Care Clinical Impression: Pain due to dental caries Condition: Good Record reviewed to determine appropriate education?: Yes Instructions: ED Tooth Pain Prescriptions: Amox/Clav 875/125 [Augmentin] 1 each PO Q12H #20 tablet HYDROcod/ACETAM 5/325 [[place] 5/325] 1 - 2 tab PO Q6H PRN #15 tablet PRN Reason: Pain Chlorhexidine [Peridex] 15 ml PO BID #300 ml Comments: I sent your prescriptions electronically to [facility] in [place]. It is very important that you follow-up with a dentist. When it comes to dental problems like yours, the emergency department can only offer a short-term solution to your long-term problem. A couple of low cost options for dental care include: [facility] in [place], calls [phone] for an appointment Or [facility] in [place], call [phone] for an appointment. I am prescribing a short course of narcotic pain medication for you. These are potentially dangerous and addictive medications that should be used carefully. These medications may constipate you. Take an [id number] stool softener (docusate) twice daily with plenty of water while taking these medications. If you go 24 hours without a bowel movement, take [id number] miralax, per package instructions. Do not drink or drive while taking these medications. If you received narcotic or sedating medications while in the emergency department, do not drive for 24 hours. Store this medication in a safe, secure place and out of reach of children. It is a violation of federal law to give or sell this medication to another person or to use in a manner other than prescribed. The ED will not refill narcotic prescriptions, including prescriptions lost or stolen. To dispose of unwanted medications: 1. [facility] provides a drop box for medication in pill form only (no liquids) 8:00 am to 4:30 p.m. Wednesday-Wednesday in the lobby of the [facility], [address] [place] [address]. Empty pills into ziplock bag before disposal. Call [phone] for information. 2.[employer] is a free service available to all [facility] residents. Go to [email or web address] Note that many narcotic pain relievers also contain Tylenol/acetaminophen. Please ensure that your total dose of acetaminophen from all sources does not exceed 3 g (3000 mg) per day.
== END 2024-02-19 13:24 | disposition home or self-care (01) ==
LOC: ED 13:04
DX: K02.9 Dental caries, unspecified (principal); E11.9 Type 2 diabetes mellitus without complications; Z79.4 Long term (current) use of insulin; Z79.899 Other long term (current) drug therapy
CPT/HCPCS: 99283